=== PATIENT | female | born 1960 | race Caucasian/White ===

== ENCOUNTER 2022-08-06 15:32 | Emergency (ER) | payer OTHER, SELFPAY ==
--- NOTE | ~2022-08-06 | XR_ITS ---
EXAMINATION: XR finger 2nd LT min 2V INDICATION: Left second finger pain TECHNIQUE: Four views of the left second finger are obtained. COMPARISON: None available FINDINGS: Bone alignment is normal. There is no fracture. There is soft tissue swelling of the second finger. 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 IMPRESSION: 1. Soft tissue swelling without acute osseous abnormality. Reviewed, dictated and finalized at location A.
[2022-08-06 16:07] VITALS: BP 122/67; PULSE 67; RESP 18; TEMP 36.5; O2SAT 99
--- NOTE | 2022-08-06 16:24 | WC.ED.TRAUMA ---
HPI - Trauma General Chief Complaint: Extremity Injury, Upper Stated Complaint: Finger Lt Hand Source: patient Mode of arrival: ambulatory History of Present Illness HPI narrative: This is a 62-year-old female that presents to urgent care with left pointer finger, injury. According to patient she smashed her fingers to table. She notes that her finger became swollen and discolored. She currently has an ice pack to the affected extremity. Her pulses are palpable, capillary refill within normal limits. She does have pain to the site she is able to bend her finger with discomfort Related Data Home Medications Medication Instructions Recorded Confirmed empagliflozin 25 mg tablet 25 mg PO DAILY 08/06/22 08/06/22 (Jardiance) ezetimibe 10 mg tablet 10 mg PO DAILY 08/06/22 08/06/22 levothyroxine 100 mcg tablet 100 mcg PO DAILY 08/06/22 08/06/22 (Synthroid) lisinopril 5 mg tablet 5 mg PO DAILY 08/06/22 08/06/22 meloxicam 15 mg tablet 15 mg PO DAILY 08/06/22 08/06/22 metformin 1,000 mg tablet 1,000 mg PO BID 08/06/22 08/06/22 simvastatin 20 mg tablet 20 mg PO DAILY 08/06/22 08/06/22 solifenacin 10 mg tablet 10 mg PO DAILY 08/06/22 08/06/22 Allergies Allergy/AdvReac Type Severity Reaction Status Date / Time No Known Allergies Allergy Verified 08/06/22 15:41 Review of Systems Review of Systems: A 14 organ system Review of Systems was performed and pertinent positives included in the HPI, otherwise remaining ROS is negative. Exam Narrative: GENERAL: This is a well-nourished, well-developed patient, in no apparent distress. HEAD: normocephalic, atraumatic. EYES: PERRL. Sclera clear/white. Vision is grossly intact. EARS: External ears normal, auditory canals clear and without drainage, TMs normal without perforation. Hearing grossly intact. NOSE: External nose normal with no obvious nasal discharge, nares without redness, no rhinorrhea. THROAT: Mucous membranes moist, posterior pharynx clear. NECK: Neck supple, non-tender without lymphadenopathy, masses or thyromegaly. CARDIOVASCULAR: Regular rate and rhythm without murmurs, gallops, or rubs. RESPIRATORY: Clear to auscultation. Breath sounds equal bilaterally. No wheezes, rales, or rhonchi. GASTROINTESTINAL: Abdomen soft, non-tender, nondistended. Bowel sounds are active. No hepato-splenomegaly, or palpable masses. No guarding. SKIN: warm, intact with no suspicious lesions or rash, good texture and turgor. NEURO: awake, alert, and oriented to person, place and time. There were no obvious focal neurologic abnormalities. EXTREMITIES: Left hand pointer finger with edema and discoloration. Full range of motion with discomfort and pain, capillary refill within normal limit, pulses present. Course Course Emergency Course: No fracture indications noted patient instructed to ice elevate and keep compression on the extremity. She will take ibuprofen for pain in inflammation Level of Care: Express Care Visit Vital Signs Vital signs: Vital Signs Temperature 97.7 F 08/06/22 16:07 Pulse Rate 67 08/06/22 16:07 Respiratory Rate 18 08/06/22 16:07 Blood Pressure 122/67 08/06/22 16:07 Pulse Oximetry 99 08/06/22 16:07 Oxygen Delivery Room Air 08/06/22 16:07 Temperature 97.7 F 08/06/22 16:07 Pulse Rate 67 08/06/22 16:07 Respiratory Rate 18 08/06/22 16:07 Blood Pressure 122/67 08/06/22 16:07 Pulse Oximetry 99 08/06/22 16:07 Oxygen Delivery Room Air 08/06/22 16:07 MDM - Trauma Differential Diagnosis Differential diagnosis: Likely fracture of pelvis (Fracture versus dislocation versus sprain of the left pointer finger) Discharge Plan Discharge Clinical Impression: Finger sprain Patient Disposition: Home, Self-Care Condition: Stable Instructions: Antibiotic Form, Finger Sprain (ED) Additional Instructions: Ice to the area 15-20 minutes 4-6 times a day for two to three days Minimize activities that aggravate the condition
== END 2022-08-06 16:25 | disposition home or self-care (01) ==
PROVIDERS: Emergency Provider Nurse Practitioner; PCP Physician Assistant
DX: S63.611A Unspecified sprain of left index finger, initial encounter (principal); X58.XXXA Exposure to other specified factors, initial encounter
CPT/HCPCS: 29130; 73140; 99203; G0463

== ENCOUNTER 2023-08-28 16:20 | Emergency (ER) | payer OTHER, SELFPAY ==
--- NOTE | ~2023-08-28 | XR_ITS ---
EXAMINATION: XR knee LT min 4V DATE: 08/28/2023 16:48 INDICATION: Posterolateral left knee pain post injury TECHNIQUE: Anteroposterior, 2 oblique and crosstable lateral views of the left knee were obtained COMPARISON: None. FINDINGS: Alignment is normal. No fracture. Tricompartmental osteoarthritis at the left knee with small to mod erate-sized marginal osteophytes all 3 compartments and with at least moderate joint space narrowing in the medial compartment which could be underestimated on nonweightbearing imaging. Likely small lef t knee joint effusion without layering lipohemarthrosis. Soft tissues are unremarkable. IMPRESSION: 1. At least moderate severity medial compartment predominant tricompartmental osteoarthritis at the l eft knee with small left knee joint effusion. No acute osseous abnormality. Reviewed, dictated and finalized at location A. IMPRESSION: 1. At least moderate severity medial compartment predominant tricompartmental o steoarthritis at the left knee with small left knee joint effusion. No acute os seous abnormality.
--- NOTE | 2023-08-28 16:21 | ED.LOWEXIN ---
HPI - Extremity Injury (Lower) General Chief Complaint: Extremity Injury, Lower Stated Complaint: Lt Knee Pain Due To Fall Time Seen by Provider: 08/28/23 16:42 Source: patient, RN notes reviewed and old records reviewed Mode of arrival: ambulatory Limitations: no limitations History of Present Illness HPI Narrative: 63 year old female presents to the [facility] with left knee pain due to fall last night. States that she tripped over a curb and landed on her knee. History of a right knee replacement. Significant swelling and effusion noted. Decreased range of motion secondary to pain and swelling Full range of motion of the ankle, positive pedal pulse negative Homans sign no calf tender Onset (ago): day(s) (1) Related Data Home Medications Medication Instructions Recorded Confirmed empagliflozin 25 mg tablet 25 mg PO DAILY 08/06/22 08/28/23 (Jardiance) ezetimibe 10 mg tablet 10 mg PO DAILY 08/06/22 08/28/23 levothyroxine 100 mcg tablet 100 mcg PO DAILY 08/06/22 08/28/23 (Synthroid) lisinopril 5 mg tablet 5 mg PO DAILY 08/06/22 08/28/23 metformin 1,000 mg tablet 1,000 mg PO BID 08/06/22 08/28/23 simvastatin 20 mg tablet 20 mg PO DAILY 08/06/22 08/28/23 solifenacin 10 mg tablet 10 mg PO DAILY 08/06/22 08/28/23 Allergies Allergy/AdvReac Type Severity Reaction Status Date / Time No Known Allergies Allergy Verified 08/28/23 16:24 Review of Systems Review of Systems: All systems reviewed & are unremarkable except as noted in HPI and below Constitutional: Constitutional: Reports no additional constitutional complaints Eyes: Eyes: Reports no additional eye complaints ENT: Reports system reviewed and no additional complaints, except as documented Cardiovascular: Cardiovascular: Reports no additional cardiovascular complaints, Denies chest pain and Denies dyspnea Respiratory: Respiratory: Reports no additional respiratory complaints, Denies chest congestion, Denies cough and Denies dyspnea Gastrointestinal: Gastrointestinal: Reports no additional gastrointestinal complaints, Denies abdominal pain, Denies nausea and Denies vomiting Musculoskeletal: Musculoskeletal: Reports as per HPI, Reports arthralgias, Reports joint swelling and Reports stiffness Integumentary/Breasts: Skin/Breast: Reports system reviewed and no additional complaints, except as docu Neurologic: Reports system reviewed and no additional complaints, except as documented Psychiatric: Psychiatric: Reports no additional psychiatric complaints Allergic/Immunologic: Allergic/Immunologic: Reports no additional allergic/immunologic complaints [facility] Past Medical History Medical History (Updated 08/28/23 @ 20:14 by Michelle Hodge APRN) Diabetes Hypertension Surgical History Surgical History (Updated 08/28/23 @ 20:13 by Michelle Hodge APRN) History of right knee joint replacement Comments At the time of my signature, I reviewed and agree with the nursing past medical, surgical, social, and family history. There is no relevant family history pertinent to the patient complaint. Exam Const: General: cooperative, healthy appearing, comfortable, no acute distress, well developed, alert and well nourished Nutritional Appearance: well nourished Orientation/consciousness: patient oriented x3 Limitations: no limitations HENMT: Head: normal to inspection Ears: hearing grossly normal bilaterally and external ears normal Face/Nose/Sinus: Normal external nose present, Normal nares present, Normal nasal mucous membranes and turbinates present, normal facial exam and face symmetric Face and sinus: normal facial exam and face symmetric Eyes: General: appearance normal, both eyes and all related structures Alignment and Position: alignment normal Periorbital: periorbital findings normal Pupils: Equal, round and reactive pupils present EOM: EOMs intact bilaterally Neck: Neck: normal visual inspection, full ROM, no lymphadenopathy and no meningeal
[2023-08-28 16:30] VITALS: BP 130/58; PULSE 69; RESP 18; TEMP 36.4; O2SAT 98
== END 2023-08-28 17:13 | disposition home or self-care (01) ==
PROVIDERS: Emergency Provider Nurse Practitioner; PCP Physician Assistant
DX: M17.12 Unilateral primary osteoarthritis, left knee (principal); M25.462 Effusion, left knee; E11.9 Type 2 diabetes mellitus without complications; I10 Essential (primary) hypertension; Z96.651 Presence of right artificial knee joint
CPT/HCPCS: 73564; 99213; G0463

== ENCOUNTER 2024-12-19 14:09 | Emergency (ER) | payer MEDICARE, OTHER, SELFPAY ==
[2024-12-19 14:44] VITALS: BP 130/62; PULSE 86; RESP 18; TEMP 36.8; O2SAT 100
--- NOTE | 2024-12-19 14:55 | ED.URI ---
HPI - URI/Sore Throat General Chief Complaint: Upper Respiratory Infection Stated Complaint: HEADACHE / SORE THROAT Time Seen by Provider: 12/19/24 14:57 Source: patient, RN notes reviewed and old records reviewed Mode of arrival: ambulatory Limitations: no limitations History of Present Illness HPI Narrative: 64-year-old female presents to the [facility] with complaints of sore throat, headache, increased mucus, sinus congestion for 3 weeks. States been on and off thought she was getting better. Two days ago started with increasing sore throat with increased mucus. Reports taking an [id number] products Onset (ago): week(s) (3) Treatments prior to arrival: cold medicine Related Data Home Medications ?Medication ?Instructions ?Recorded ?Confirmed ?Last Taken ?Type empagliflozin 25 mg tablet 25 mg PO DAILY 08/06/22 08/28/23 Unknown History (Jardiance) ezetimibe 10 mg tablet 10 mg PO DAILY 08/06/22 08/28/23 Unknown History levothyroxine 100 mcg tablet 100 mcg PO DAILY 08/06/22 08/28/23 Unknown History (Synthroid) lisinopril 5 mg tablet 5 mg PO DAILY 08/06/22 08/28/23 Unknown History simvastatin 20 mg tablet 20 mg PO DAILY 08/06/22 08/28/23 Unknown History solifenacin 10 mg tablet 10 mg PO DAILY 08/06/22 08/28/23 Unknown History dulaglutide 0.75 mg/0.5 mL mg subcut 12/19/24 Unknown History subcutaneous pen injector (Trulicity) Allergies Allergy/AdvReac Type Severity Reaction Status Date / Time Sulfa (Sulfonamide Allergy Intermediate Rash Verified 12/19/24 14:46 Antibiotics) Review of Systems Review of Systems: All systems reviewed & are unremarkable except as noted in HPI and below Constitutional: Constitutional: Reports no additional constitutional complaints ENT: Reports as per HPI Cardiovascular: Cardiovascular: Reports no additional cardiovascular complaints, Denies chest pain and Denies dyspnea Respiratory: Respiratory: Reports no additional respiratory complaints, Denies chest congestion, Denies cough and Denies dyspnea Musculoskeletal: Musculoskeletal: Reports no additional musculoskeletal complaints Integumentary/Breasts: Skin/Breast: Reports system reviewed and no additional complaints, except as docu PMFSH Past Medical History Medical History Diabetes Hypertension Surgical History Surgical History History of right knee joint replacement Comments At the time of my signature, I reviewed and agree with the nursing past medical, surgical, social, and family history. There is no relevant family history pertinent to the patient complaint. Exam Const: General: cooperative, healthy appearing, comfortable, no acute distress, well developed, alert and well nourished Nutritional Appearance: well nourished and obese Orientation/consciousness: patient oriented x3 Limitations: no limitations HENMT: Head: normal to inspection Ears: hearing grossly normal bilaterally, external ears normal, TM's normal bilaterally, EAC's normal, mastoids normal and no periauricular adenopathy Mouth: Yes Normal oral and palatal mucosa present, Yes lip normal, Yes tongue normal and Yes moist mucous membranes Throat: posterior oropharynx normal and no uvular edema Eyes: General: appearance normal, both eyes and all related structures Alignment and Position: alignment normal Neck: Neck: normal visual inspection, full ROM, no lymphadenopathy and no meningeal signs Chest: Chest palpation & inspection: normal inspection of the chest Resp: Effort & Inspection: normal respiratory effort and able to speak in complete sentences Auscultation: clear to auscultation bilaterally, no crackles, no rales, no rhonchi and no wheezes Cardio: Rate: regular rate Skin: General skin exam: normal color and no rashes or lesions noted Neuro: General: patient oriented x3, gait normal, moves all extremities and no meningeal signs Cognition (Neuro): normal cognition Speech: normal speech Gait exam (Neuro): Normal gait present Extrem: General: normal to inspection, full ROM, capillary refill normal and normal gait Psych: Appearance: grossly normal and well kempt Mental Status: mental status grossly normal Speech and movement: Normal speech and movement present and Clear speech present Affect: normal affect Attitude: cooperative Course Course Level of Care: Express Care Visit Vital Signs Vital signs: Vital Signs Temperature 98.2 F 12/19/24 14:44 Pulse Rate 86 12/19/24 14:44 Respiratory Rate 18 12/19/24 14:44 Blood Pressure 130/62 12/19/24 14:44 Pulse Oximetry 100 12/19/24 14:44 Oxygen Delivery Room Air 12/19/24 14:44 Temperature 98.2 F 12/19/24 14:44 Pulse Rate 86 12/19/24 14:44 Respiratory Rate 18 12/19/24 14:44 Blood Pressure 130/62 12/19/24 14:44 Pulse Oximetry 100 12/19/24 14:44 Oxygen Delivery Room Air 12/19/24 14:44 Reviewed MDM - URI/Sore Throat MDM Narrative Medical decision making narrative: Patient sitting comfortably in exam room. Nontoxic, vitals stable. Patient in no acute distress. Patient presents with 3 week history of URI symptoms, increasing yesterday. Patient is strep positive Patient is appropriate for outpatient treatment and follow-up Discharge instructions reviewed with patient, as well as provided in writing per nursing staff. The instructions also include specific and strict return/GO TO THE ER as well as f/u information. All questions have been answered, and the patient deny any further questions with discharge and discharge plan. Some parts of this dictation were generated by voice recognition software and may contain typographical and/or grammatical inaccuracies. Differential Diagnosis Differential diagnosis: Likely upper respiratory infection, otitis media, sinusitis, viral infection, bronchitis, influenza and pharyngitis Lab Data Labs: Lab Results 12/19/24 Range/Units 14:58 POC Grp A Strep Screen Positive (Negative) Reviewed Critical Care Time Critical Care Time Critical Care Time: No Discharge Plan Discharge Clinical Impression: Strep throat Patient Disposition: Home, Self-Care Condition: Stable Instructions: Antibiotic Form, Strep Throat (ED) Additional Instructions: It is very important to treat your symptoms. Drink plenty of water, Gatorade, Pedialyte, ice pops or Jell-O. -Alternate Tylenol and Motrin per package directions for fever or pain. You can alternate every 4 hours -Antihistamine medication such as Zyrtec/Claritin/Wandy during the day can help improve symptoms. -doing daily nasal irrigations can help relieve pressure your sinuses. Things like a Neti pot -Use Flonase twice a day for 5 days then daily to help reduce the inflammation and dry up your sinuses. -You can also use Mucinex. Be sure to drink plenty of water with this medication at least 8 ounces with every dose and it is important to drink 8 to 10 glasses of water per day. Water is a natural decongestant -Eat and drink things that are easy to swallow, like tea or soup, or popsicles. -Oral rinses such as: Salt water gargles and/or may use topical anesthetic (eg. Chloraseptic spray) or lozenges to relieve dryness or throat pain). -Frequent hand washing or hand progressive care nurse is one of the best ways to prevent spread of infection. -Using a vaporizer or humidifier at night will also help thin secretions and help with coughing up phlegm. -Follow up with primary care provider in 7-10 days if condition is not improving - For new or worsening symptoms go directly to the nearest ER Patient Language: Turkish Prescriptions: New amoxicillin 875 mg tablet 875 mg PO Q12H Qty: 20 0RF No Action levothyroxine [Synthroid] 100 mcg tablet 100 mcg PO DAILY simvastatin 20 mg tablet 20 mg PO DAILY lisinopril 5 mg tablet 5 mg PO DAILY ezetimibe 10 mg tablet 10 mg PO DAILY solifenacin 10 mg tablet 10 mg PO DAILY Jardiance 25 mg tablet 25 mg PO DAILY Trulicity 0.75 mg/0.5 mL pen injector SUBCUT Follow-up/Referrals: Coty,MONKIA Contreras [Primary Care Provider] - Stand Alone Forms: Work/School Release IP Time of Disposition: 15:08
[2024-12-19 15:00] LABS: EDSTREPNEGPOS1 Positive (Negative)
--- OUTSIDE RECORDS SUMMARY | 2024-12-19 16:27 | XMS_ITS | Clinical Summary ---
Author Organization [address] Address [address] [place] [id number] Care Team Providers Care Dev Technical Mgr Name Role Phone Beto Potts MD Unavailable [phone] Beto Potts MD Unavailable Leatha Ansari Primary Care Provider Beto Potts MD Unavailable [phone] Samir Garcia Unavailable [phone] Allergies Active Allergy Reactions Criticality Noted Date Comments Sulfa (Sulfonamide Antibiotics) Other (See comments),Hives Medium 11/23/2017 Medications blood-glucose meter kit 2 (two) times a week 01/26/20 18 Active OMEGA-3 FATTY ACIDS-EPA ORAL 1,200 mg early breastfeeding care specialist before breakfast 06/02/20 11 Active CHOLECALCIFEROL, VITAMIN D3, ORAL 5,000 Units every morning 06/02/20 11 Active biotin 1 mg capsule early breastfeeding care specialist before breakfast 08/03/20 19 Active blood glucose diagnostic (FreeStyle Lite Strips) strip Testing bid, due to hyperglycemia 100 each 3 01/18/20 20 Active fluorouraciL (EFUDEX) 5 % cream 12/09/19 23 Active fluticasone propionate (FLONASE) 50 mcg/actuation nasal sprayIndications: Postnasal drip SHAKE LIQUID AND USE 2 SPRAYS IN EACH NOSTRIL DAILY 48 g 02/06/20 23 Active ammonium lactate (AMLACTIN) 12 % cream APPLY TO THE AFFECTED AREA ON FEET TWICE DAILY 11/16/19 24 Active metFORMIN (GLUCOPHAGE) 1,000 mg tabletIndications :Type 2 diabetes mellitus with stage 1 chronic kidney disease, without long-term current use of insulin ([facility]) ([facility]) Take 1 tablet (1,000 mg total) by mouth 2 (two) times a day 180 tablet 3 11/27/19 24 Active solifenacin (VESIcare) 10 mg tabletIndications :Overactive bladder TAKE 1 TABLET DAILY 90 tablet 3 01/18/20 24 Active levothyroxine (SYNTHROID) 100 mcg tabletIndications :Other specified hypothyroidism Take 1 tablet (100 mcg total) by mouth daily 90 tablet 3 03/11/20 24 025 Active ezetimibe (ZETIA) 10 mg tabletIndications :Mixed hyperlipidemia Take 1 tablet (10 mg total) by mouth daily after lunch 90 tablet 3 05/06/20 24 025 Active simvastatin (ZOCOR) 20 mg tabletIndications :Mixed hyperlipidemia Take 1 tablet (20 mg total) by mouth daily 90 tablet 3 05/06/20 24 025 Active dulaglutide (TRULICITY) 0.75 mg/0.5 mL pen injector Inject 0.5 mL (0.75 mg total) under the skin every 7 days 6 mL 3 05/23/20 24 025 Active empagliflozin (Jardiance) 25 mg tabletIndications :Type 2 diabetes mellitus with stage 1 chronic kidney disease, without long-term current use of insulin ([facility]) ([facility]) Take 1 tablet (25 mg total) by mouth daily 90 tablet 3 05/23/20 24 025 Active lisinopriL (PRINIVIL,ZESTRIL ) 5 mg tabletIndications :Benign essential hypertension Take 1 tablet (5 mg total) by mouth daily 90 tablet 11/24/19 25 026 Active lisinopriL (PRINIVIL,ZESTRIL ) 5 mg tabletIndications :Benign essential hypertension Take 1 tablet (5 mg total) by mouth daily 90 tablet 3 11/27/19 24 025 Discontin ued(Reord er) Active Problems Problem Noted Date Diagnosed Date Low bone mass 02/05/2024 Overview (02/05/2024): 2023 scan: Class 1 obesity due to exces s calories with serious comorbidity and body mass index (BMI) of 32.0 to 32.9 in adult 03/23/2020 Assessment & Plan (11/27/2023 3:26 PM CREDIT RISK MODELER): Educated patient on healthy diet/exercise plan. Exercise 150min-300min per week of moderate intensity. Diet: good, healthy protein (eggs, nuts, peanut butter, chicken, fish, turkey, less pork/beef), lots of vegetables, less carbohydrates and less sugar. Assessment & Plan (11/10/2022 12:05 PM CREDIT RISK MODELER): Uncontrolled. Goal of BMI is less than 30. Educated patient on healthy diet/exercise plan. Exercise 150min-300min per week of moderate intensity. Diet: good, healthy protein (eggs, nuts, peanut butter, chicken, fish, turkey, less pork/beef), lots of vegetables, less carbohydrates and less sugar. Patient has lost 3 lb Assessment & Plan (11/22/2021 7:51 AM CREDIT RISK MODELER): Uncontrolled. Goal of BMI is less than 30 Educated patient on healthy diet/exercise plan. Exercise 150min-300min per week of moderate intensity. Diet: good, healthy protein (eggs, nuts, peanut butter, chicken, fish, turkey, less pork/beef), lots of vegetables, less carbohydrates and less sugar. Assessment & Plan (08/05/2021 2:00 PM CDT): Uncontrolled. Goal of BMI is less than 30 Educated patient on healthy diet/exercise plan. Exercise 150min-300min per week of moderate intensity. Diet: good, healthy protein (eggs, nuts, peanut butter, chicken, fish, turkey, less pork/beef), lots of vegetables, less carbohydrates and less sugar. Assessment & Plan (01/28/2021 9:57 AM CDT): Educated patient on healthy diet/exercise plan. Exercise 150min-300min per week of moderate intensity. Diet: good, healthy protein (eggs, nuts, peanut butter, chicken, fish, turkey, less pork/beef), lots of vegetables, less carbohydrates and less sugar. Assessment & Plan (03/23/2020 9:47 AM CDT): Educated patient on healthy diet/exercise plan. Exercise 150min-300min per week of moderate intensity. Diet: good, healthy protein (eggs, nuts, peanut butter, chicken, fish, turkey, less pork/beef), lots of vegetables, less carbohydrates and less sugar. Presence of right artificial knee joint 09/12/20 19 Assessment & Plan (03/23/2020 9:49 AM CDT): Followed by Ortho Assessment & Plan (01/16/2020 8:49 AM CDT): Patient will follow back up with ortho Assessment & Plan (09/12/2019 10:10 AM CREDIT RISK MODELER): Currently the nausea and constipation far worse. She has tried cruise, applesauce and any type of food to have her bowels move. She has tried stool softeners as well as other medications except for MiraLax. She stopped taking the narcotic pain medication however she knows that she will need to have something when she starts formal physical therapy this week. She unfortunately developed a urinary tract infection that is currently being treated. Begin MiraLax. We will try Nucynta for pain medication as she has failed hydrocodone and Ultram. Follow-up in 4 weeks for repeat evaluation. Health maintenance examination 03/30/2019 Overview (11/16/2024): PMH: 11/27/23 Last pap: 10/28/21 Last mammogram:04/2024 Last dexa: ordered Last colonoscopy/cologuard: 11/2021 repeat 2024 Last Hep C:08/2017 Last hep b series: completed in past Last tdap:09/09/2017 Last Prevnar/pneumovax: due pt declined 02/2018, pt declined 02/2020, Last Shingrix:get pharmacy Last eye exam:11/14/24 Assessment & Plan (11/27/2023 1:57 PM CREDIT RISK MODELER): PMH: 11/27/23 Last pap: 10/28/21 Last mammogram:04/2023 Last dexa: ordered Last colonoscopy/cologuard: 11/2021 repeat 2024 Last Hep C:08/2017 Last hep b series: completed in past Last tdap:09/09/2017 Last Prevnar/pneumovax: due pt declined 02/2018, pt declined 02/2020, Last Shingrix:get pharmacy Last eye exam:11/23/23 Assessment & Plan (11/10/2022 11:16 AM CREDIT RISK MODELER): PMH: 11/10/2022 Last pap: due, referral to investment underwriter Last mammogram:11/2018, 05/25/2020, 09/2021 Last dexa: Last colonoscopy/cologuard: 05/2016, 11/2021 repeat 2024 Last Hep C:08/2017 Last hep b series: completed in past Last tdap:09/09/2017 Last Prevnar/pneumovax: due pt declined 02/2018, pt declined 02/2020, Last Shingrix:due, info given ,check on base Last eye exam:10/28/2018, 08/16/2020 , 11/11/2022 Assessment & Plan (08/05/2021 1:44 PM CDT): PMH: 08/05/2021 Last pap: due, referral to investment underwriter Last mammogram:11/2018, 05/25/2020 Last dexa: Last colonoscopy/cologuard: 05/2016 repeat 2020 Last Hep C:08/2017 Last hep b series: completed in past Last tdap:09/09/2017 Last Prevnar/pneumovax: due pt declined 02/2018, pt declined 02/2020, Last Shingrix:due, info given ,check on base Last eye exam:10/28/2018, 08/16/2020 Assessment & Plan (03/23/2020 9:48 AM CDT): PMH: 03/23/2020 Last pap: due Last mammogram:11/2018, Last dexa: Last colonoscopy/cologuard: 05/2016 repeat 2020 Last Hep C:08/2017 Last hep b series: completed in past Last tdap:09/09/2017 Last Prevnar/pneumovax: due pt declined 02/2018, pt declined 02/2020 Last Shingrix:due, info given ,check on base Last eye exam:10/28/2018, due Return to clinic for Pap. Patient due for eye exam Assessment & Plan (08/08/2019 10:33 AM CDT): PMH: 11/15/2018 Last pap: due Last mammogram:11/2018 Last dexa: Last colonoscopy/cologuard: 05/2016 repeat 2020 Last Hep C:08/2017 Last hep b series: completed in past Last tdap:09/09/2017 Last Prevnar/pneumovax: due pt declined 02/2018 Last Shingrix:due Last eye exam:10/28/2018 Benign essential hypertension 11/05/2018 Assessment & Plan (11/27/2023 3:25 PM CREDIT RISK MODELER): Stable, continue current meds. Assessment & Plan (11/10/2022 12:05 PM CREDIT RISK MODELER): Stable, continue current meds Assessment & Plan (11/22/2021 7:50 AM CREDIT RISK MODELER): Stable, continue current meds. Follow-up in February Assessment & Plan (08/05/2021 1:59 PM CDT): Stable, continue prescribed meds. Labs due in February Assessment & Plan (01/28/2021 9:57 AM CDT): Stable, continue current prescribed meds Assessment & Plan (03/23/2020 9:47 AM CDT): Stable continue meds Assessment & Plan (01/16/2020 8:48 AM CDT): Stable, continue meds Assessment & Plan (08/08/2019 12:55 PM CDT): Controlled continue meds Assessment & Plan (03/30/2019 11:11 AM CDT): Hypertension is improving with treatment. Continue current treatment regimen. Blood pressure will be reassessed in 4 weeks. Type 2 diabetes mellitus wit h diabetic chronic kidney disease 03/08/2018 Assessment & Plan (11/27/2023 3:24 PM CREDIT RISK MODELER): Stable, order labs. Foot exam completed today. Continue current meds Assessment & Plan (11/10/2022 12:07 PM CREDIT RISK MODELER): Uncontrolled. A1c at 7.3. Talked with patient about options. She wanted to continue working on weight loss, exercise, and dietary changes. Patient would like to repeat labs in February. If A1c is not at goal will talk about adding another medication Patient has eye exam scheduled this week. Foot exam completed today Assessment & Plan (11/22/2021 7:52 AM CREDIT RISK MODELER): Uncontrolled. Goal of A1c is less than 7 Patient's current A1c at 7.4. Talked with patient about treatment options. Patient reports she was on a G LP 1 in the past and it caused her to feel very flu like. She is unsure of the name. Patient wants to try dietary changes and exercise and weight loss. Patient reports she was not doing well over the holidays with her diet. Patient will recheck labs in February. If number is not less than 7 we will need to consider adding medication Assessment & Plan (08/05/2021 2:00 PM CDT): Stable, continue meds. Order A1c Patient due for eye exam this month Foot exam normal Assessment & Plan (01/28/2021 9:58 AM CDT): Stable, continue meds. Labs due in the beginning of February. Eye exam up-to-date. Assessment & Plan (03/23/2020 9:49 AM CDT): Stable, encourage patient to work on dietary changes and exercise to help with weight loss. Recommend patient start baby aspirin 81 mg a day. Patient due for eye exam. Encourage patient to check her feet daily Assessment & Plan (01/16/2020 8:49 AM CDT): Juan Carlos, A1c was okay. Patient will work on diabetic diet and exercise Assessment & Plan (08/08/2019 12:56 PM CDT): A1c 6.9. Continue meds continue diabetic diet Assessment & Plan (06/29/2019 1:29 PM CDT): Certainly increases the risk for postoperative complication. Chronic kidney disease, stage 1 03/08/2018 Assessment & Plan (11/27/2023 3:25 PM CREDIT RISK MODELER): Stable, monitor labs Assessment & Plan (11/10/2022 12:05 PM CREDIT RISK MODELER): Stable, continue current meds Assessment & Plan (11/22/2021 7:51 AM CREDIT RISK MODELER): Stable, continue current treatment plan. 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 12/24/2016 Overactive bladder 09/17/2016 Assessment & Plan (11/27/2023 3:24 PM CREDIT RISK MODELER): Stable, continue VESIcare Assessment & Plan (11/10/2022 12:06 PM CREDIT RISK MODELER): Stable Assessment & Plan (11/22/2021 7:51 AM CREDIT RISK MODELER): Stable, continue meds Assessment & Plan (08/05/2021 2:00 PM CDT): Stable, continue meds Assessment & Plan (03/23/2020 9:48 AM CDT): Stable continue meds Assessment & Plan (08/08/2019 12:56 PM CDT): Stable continue meds Allergic rhinitis due to pollen 09/17/2016 Assessment & Plan (11/27/2023 3:25 PM CREDIT RISK MODELER): Stable, continue meds Assessment & Plan (11/10/2022 12:05 PM CREDIT RISK MODELER): Stable, continue current meds Assessment & Plan (08/05/2021 1:59 PM CDT): Stable, p.r.n. meds Assessment & Plan (03/23/2020 9:47 AM CDT): Stable with p.r.n. meds Assessment & Plan (08/08/2019 12:55 PM CDT): Stable Vitamin D deficiency 02/04/2016 Assessment & Plan (11/27/2023 3:24 PM CREDIT RISK MODELER): Stable, continue vitamin-D Assessment & Plan (11/10/2022 12:07 PM CREDIT RISK MODELER): Stable, continue Assessment & Plan (08/05/2021 2:01 PM CDT): Stable, continue vitamin Assessment & Plan (03/23/2020 9:49 AM CDT): Stable continue vitamin-D Assessment & Plan (01/16/2020 8:49 AM CDT): Stable continue vitamin-D Assessment & Plan (08/08/2019 12:56 PM CDT): Stable continue vitamin-D Restless legs syndrome 02/04/2016 Assessment & Plan (11/27/2023 3:24 PM CREDIT RISK MODELER): Stable Assessment & Plan (11/10/2022 12:06 PM CREDIT RISK MODELER): Stable Assessment & Plan (08/05/2021 2:00 PM CDT): Stable, continue meds Assessment & Plan (03/23/2020 9:49 AM CDT): Stable Assessment & Plan (08/08/2019 12:56 PM CDT): Stable continue meds Other specified hypothyroidism 02/04/2016 Assessment & Plan (11/27/2023 3:24 PM CREDIT RISK MODELER): Stable, continue meds, order labs Assessment & Plan (11/10/2022 12:06 PM CREDIT RISK MODELER): Stable, continue meds Assessment & Plan (08/05/2021 2:00 PM CDT): Stable, due for labs in February Assessment & Plan (01/28/2021 9:58 AM CDT): Stable, continue meds. Patient will get labs completed in the beginning of meds Assessment & Plan (03/23/2020 9:48 AM CDT): Stable continue meds Assessment & Plan (08/08/2019 12:56 PM CDT): Stable continue meds Obstructive sleep apnea 02/04/2016 Assessment & Plan (11/27/2023 3:24 PM CREDIT RISK MODELER): Unchanged Assessment & Plan (11/10/2022 12:06 PM CREDIT RISK MODELER): Unchanged Assessment & Plan (08/05/2021 2:00 PM CDT): Stable no CPAP machine at this time Assessment & Plan (03/23/2020 9:48 AM CDT): Stable Assessment & Plan (08/08/2019 12:56 PM CDT): Stable not on CPAP Mixed hyperlipidemia 01/11/2016 Overview (03/30/2019): Failed lipitor Assessment & Plan (11/27/2023 3:24 PM CREDIT RISK MODELER): Stable, continue Zocor Assessment & Plan (11/10/2022 12:06 PM CREDIT RISK MODELER): Uncontrolled. Patient's numbers are slightly up. We talked about possibly increasing meds patient wanted to try to improve her numbers on her own. Repeat labs in February. If heart risk is not less than 7.5% we will consider increasing simvastatin to 40 mg Assessment & Plan (11/22/2021 7:51 AM CREDIT RISK MODELER): Patient will check labs in February, continue Zocor Assessment & Plan (08/05/2021 2:00 PM CDT): Stable, continue current meds. Check labs in February Assessment & Plan (01/28/2021 9:57 AM CDT): Stable, continue meds Assessment & Plan (03/23/2020 9:48 AM CDT): Continue meds Assessment & Plan (01/16/2020 8:48 AM CDT): Uncontrolled, increase Zocor from 10 mg to 20 mg Assessment & Plan (08/08/2019 12:55 PM CDT): Stable Periodic limb movement Assessment & Plan (11/27/2023 3:25 PM CREDIT RISK MODELER): Stable, no meds at this time Assessment & Plan (11/10/2022 12:06 PM CREDIT RISK MODELER): Stable Assessment & Plan (08/05/2021 2:00 PM CDT): Stable, continue meds Assessment & Plan (03/23/2020 9:49 AM CDT): Stable Assessment & Plan (08/08/2019 12:56 PM CDT): Stable continue meds Fatty liver Overview (03/30/2019): biopsy showed CHANEL Assessment & Plan (11/27/2023 3:25 PM CREDIT RISK MODELER): Continue working on weight loss, monitor liver function Assessment & Plan (11/10/2022 12:05 PM CREDIT RISK MODELER): Working on weight loss, monitoring labs Assessment & Plan (11/22/2021 7:51 AM CREDIT RISK MODELER): Stable, ALT and AST continue to improve. Monitor labs Assessment & Plan (08/05/2021 2:00 PM CDT): Monitor with labs Assessment & Plan (03/23/2020 9:47 AM CDT): Stable Assessment & Plan (08/08/2019 12:55 PM CDT): Controlled, patient working on weight loss. Continue to monitor Resolved Problems Problem Noted Date Diagnosed Date Resolved Date Viral URI with cough 10/08/2022 023 History of total left knee replacement (TKR) 0 01/11/2020 Arthrofibrosis of total knee replacement (CMS/HCC) 10/07/2019 08/05/2021 Overview (05/12/2020): Manipulation under anesthesia November 07, 2019 Repeat manipulation May 01, 2020 Assessment & Plan (01/28/2021 9:57 AM CDT): Patient has surgery planned March 26 Assessment & Plan (07/22/2020 11:58 AM CDT): Patient has undergone 2 manipulations. Discussed the case with Dr. Winn. Patient is looking for a more aggressive get minimally invasive approach to removing the scar tissue. We discussed the risks, benefits and alternatives. I believe Dr. Winn would be able to help her with arthroscopic debridement of her scar tissue. Certainly, this would be less invasive than open removal of the scar tissue. I personally discussed the case with Dr. Winn and will set the patient up for consultation. Assessment & Plan (06/12/2020 8:29 PM CDT): Still feels like she can only get to 95 on her own. Continue progressive range of motion and strengthening. Follow up in 6 weeks Assessment & Plan (05/12/2020 8:24 PM CDT): The sitting got started back onto her Mobic, muscle relaxer and steroid right away. Started physical therapy that afternoon. She does feel like he has improved her range of motion. We will have her brace people mi and re-evaluate the brace. Follow up in 4 weeks. Assessment & Plan (04/08/2020 10:05 PM CDT): Patient states that she did go from 60/65 to 90/95 degrees and with physical therapy can get to 101 with pushing. Would like to try 1 more manipulation under anesthesia to see if she can get the range of motion. Begin Medrol Dosepak and Nucynta as well as daily physical therapy. Assessment & Plan (12/19/2019 3:25 PM CREDIT RISK MODELER): Patient making slow progress. 92 of flexion now. Achy after physical therapy. Wants to continue with therapy. Follow up in 6 weeks for repeat evaluation. Assessment & Plan (11/21/2019 1:10 PM CREDIT RISK MODELER): Begin Medrol Dosepak. Begin meloxicam 15 mg once daily. Continue Flexeril. Continue with aggressive physical therapy,GILDA bracing and CPM. Follow-up in 4 weeks for repeat evaluation. Assessment & Plan (10/07/2019 12:34 PM CREDIT RISK MODELER): We discussed the risks, benefits and alternatives. Patient is not ready to proceed with manipulation under anesthesia. She does have a history of diabetes but is willing to take the Medrol Dosepak, diclofenac, and Flexeril. Nucynta for pain. She is currently working with the flexion and extension braces as well as a TENS unit. Follow up in 4 weeks for repeat evaluation. If no significant improvement may need to consider manipulation. Primary osteoarthritis of right knee 06/29/2019 09/12/2019 Assessment & Plan (08/08/2019 12:56 PM CDT): Right knee surgery planned on 08/24/2019 Assessment & Plan (06/29/2019 1:29 PM CDT): We discussed the risks, benefits and alternatives of treatment options for osteoarthritis of the knee. From least invasive to most invasive: The only thing to slow the progression of osteoarthritis is weight loss. For every pound lost 4 to 6 pounds of stress is relieved from the knee. Formal physical therapy to help with flexion, extension, mobility and strength. Unloading braces to unload the affected side. The possibility of TENs unit to control pain and swelling. Nonsteroidal anti-inflammatories with the potential of cardiac and GI upset. Steroid and Visco supplement injection. And eventual total knee arthroplasty. After going over the risks, benefits and alternatives all questions are answered. Patient will proceed with TENS unit for pain control initially and total knee arthroplasty for long- term pain control. Acute medial meniscus tear of right knee 06/29/2019 01/11/2020 Assessment & Plan (08/08/2019 12:55 PM CDT): Planned knee surgery Assessment & Plan (06/29/2019 1:30 PM CDT): Three options for meniscal treatment. Nothing, see if it improves over time. Treat conservatively as an osteoarthritis of the knee or diagnostic and operative arthroscopy with repair or partial excision. With the extent of the osteoarthritis noted on MRI total knee arthroplasty is indicated. All questions are answered. Acute nonintractable headache 03/30/2019 08/08/2019 Assessment & Plan (03/30/2019 11:07 AM CDT): Likely due to allergies. Will prescribe Astelin nasal spray. She is to use this daily for the next 2 weeks. She is also to keep a headache log. In 2 weeks she will let us know if her symptoms have improved, worsened, not changed. If she does not have any improvement with the Astelin will consider changing her BP medication. Dry cough 03/30/2019 08/08/2019 Assessment & Plan (03/30/2019 11:08 AM CDT): Due to allergies vs Lisinopril. Lisinopril started 6-7 weeks ago. Prescribed allergy medication. If no improvement with this medication in 2 weeks will change to different BP medication. BMI 32.0-32.9,adult 11/15/2018 01/29/20 21 Assessment & Plan (08/08/2019 12:55 PM CDT): Patient will be able to restart exercise post knee surgery Assessment & Plan (06/29/2019 1:31 PM CDT): We spent over 30 minutes discussing a low carbohydrate, moderate protein and high healthy fat diet. This will certainly help her fatty liver as well as her diabetes and possibly beginnings of neuropathy. Encounters Date Type Department Care Team Description 11/22/2024 Telephone [facility] [address] [id number] Leatha Ansari PA Additional Services Or Orders from Last 3 Months Immunizations Immunization Administration Dates Next Due Influenza, Quadrivalent, Spl it, Preservative Free, Intramuscular 08/05/2023,09/05/2022,08/05/2021,08/02 PPD TEST 06/10/2023,03/29/2007 Pfizer SARS-CoV-2 Monovalent Vaccination (12+ Yrs) PURPLE 01/04/2021,12/14/2020 Tdap 09/09/2017,01/28/2007 Surgical History Surgery Date Site/Laterality Comments FOOT SURGERY 10/26/2017 - 11/25/2017 Left COLONOSCOPY 05/2016 repeat 2020 FOOT SURGERY 12/24/2016 - 01/23/2017 Left LIVER BIOPSY TOTAL KNEE ARTHROPLASTY 08/24/2019 Right KNEE JOINT MANIPULATION 11/07/2019 Right KNEE JOINT MANIPULATION 05/01/2020 Right KNEE ARTHROSCOPY 02/23/2021 - 03/25/2021 Right Medical History Medical History Date Comments Allergic rhinitis due to pollen 09/17/2016 Benign essential hypertension 11/05/2018 Chronic kidney disease, stage 1 03/08/2018 Mixed hyperlipidemia 01/11/2016 failed lipi tor Obstructive sleep apnea 02/04/2016 Other specified hypothyroidism 02/04/2016 Overactive bladder 09/17/2016 Restless legs syndrome 02/04/2016 Type 2 diabetes mellitus wit h diabetic chronic kidney disease (HCC) 03/08/2018 Vitamin D deficiency 02/04/2016 Fracture, finger Fatty liver biopsy showed NA SH Periodic limb movement Injury of calf 2012 tear muscle righ t leg Acute medial meniscus tear o f right knee 06/29/2019 Arthrofibrosis of total knee replacement (HCC) 10/07/2019 Manipulation under anesthesi a November 07, 2019 History of total left knee r eplacement (TKR) 01/11/2020 PONV (postoperative nausea a nd vomiting) Viral URI with cough 10/08/2022 Family History Medical History Relation Name Comments Hyperlipidemia Brother 1 Hypothyroidism Brother 1 bypass Brother 1 Diabetes Brother 2 Hyperlipidemia Brother 2 Hypothyroidism Brother 2 bypass Brother 2 Heart disease Father Melanoma Father bypass Father Heart disease Mother Hyperlipidemia Mother Alzheimer's disease Sister 1 Hypothyroidism Sister 1 Diabetes Sister 2 Hypothyroidism Sister 2 Breast cancer Neg Hx Colon cancer Neg Hx Ovarian cancer Neg Hx Pancreatic cancer Neg Hx Prostate cancer Neg Hx Uterine cancer Neg Hx Relation Name Status Comments Brother 1 Alive Brother 2 Alive Father (Age 92) Mother Sister 1 (Age 64) Sister 2 Alive Social History Tobacco Use Types Packs/Day Years Used Date Smoking Tobacco: Never Smokeless Tobacco: Never Tobacco Cessation:Counseling Given: Not Answered Alcohol Use Standard Drinks/Week Comments Yes 0 (1 standard drink = 0.6 oz pur e alcohol) socially AUDIT-C Answer Date Recorded Q1: How often do you have a drink containing alc ohol? Monthly or less 09/02/2023 Q2: How many drinks containi ng alcohol do you have on a typical day when you are drinking? 1 or 2 09/02/2023 Q3: How often do you have si x or more drinks on one occasion? Never 09/02/2023 PHQ-2 Answer Date Recorded PHQ-2 Total Score (If total score is 3 or more points, staff should administer the PHQ-9) 0 11/27/2023 Comments No Sex and Gender Information Value Date Recorded Sex Assigned at Not on file Legal Sex Female 2:18 PM CREDIT RISK MODELER Gender Identity Not on file Sexual Orientation Not on file Obstetrics History Para Term AB IAB SAB Ectopic Multiple Livin g Live Births 2 2 2 2 Date Outcome GA Total Labor Labor//3rd Weight Sex Type Anes PTL Vani A1 A5 Name Clin Term Term Last Filed Vital Signs Vital Sign Reading Time Taken Comments Blood Pressure 120/68 11/27/2023 1:34 PM CREDIT RISK MODELER Pulse 82 11/27/2023 1:34 PM CREDIT RISK MODELER Temperature 36.6 C (97.8 F) 11/27/2023 1:34 PM CREDIT RISK MODELER Respiratory Rate 16 11/27/2023 1:34 PM CREDIT RISK MODELER Oxygen Saturation 98% 11/27/2023 1:34 PM CREDIT RISK MODELER Inhaled Oxygen Concentration - - Weight 80.1 kg (176 lb 9.6 oz) 11/27/2023 1:34 P M CREDIT RISK MODELER Height 157.5 cm (5' 2 ) 11/27/2023 1:34 PM CREDIT RISK MODELER Body Mass Index 32.3 11/27/2023 1:34 PM CREDIT RISK MODELER Plan of Treatment Health Maintenance Due Date Last Done Comments Hepatitis B Screening 1977 Pneumococcal vaccine 65+ (1 of 2 - PCV) 1978 Zoster Vaccine (1 of 2) 2009 Fall Risk Assessment 08/08/2020 08/08/2019 Covid-19 Vaccine (5 - 2023-2 5 season) 2024 08/01/2022, 09/27/2021, 01/04/2021, Additional history exists Influenza Vaccine (#1) 2024 , 09/05/2022, 08/05/2021, Additional history exists Hemoglobin A1C 09/17/2024 03/17/2024, 11/26, 10/15/2022, Additional history exists Depression Screening 11/27/2024 11/27/2023, 11/27/2023, 09/02/2023, Additional history exists Foot Exam 11/27/2024 11/27/2023, 10/26, 08/05/2021, Additional history exists Well Visit 65+ 11/27/2024 11/27/2023, 10/26, 10/28/2021, Additional history exists Albumin Creatinine Ratio, Urine 12/05/2024 12/05/2023, 10/15/2022, 02/28/2022 Colon Cancer Screening-Colonoscopy 12/16/2024 12/16/2021, 05/26/2016, 06/03/2011 Lipid Panel 03/17/2025 03/17/2024, 11/26, 10/15/2022, Additional history exists eGFR 03/17/2025 03/17/2024, 11/26, 10/15/2022, Additional history exists Breast Cancer Screening-Mammogram 05/11/2025 05/11/2024, 05/04/2023, 10/24/2021, Additional history exists Dilated Eye Exam 10/27/2025 10/27/2024, , 11/20/2022, Additional history exists Osteoporosis Screening-Bone Density Scan 02/02/2026 02/03/2024 Cervical Cancer Screening 10/28/2026 10/28/2021 DTaP/Tdap/Td Vaccine (3 - Td or Tdap) 09/09/2027 09/09/2017, 01/28/2007 Hepatitis C Screening Completed 09/09/2017 Colon Cancer Screening-CT Colonography Discontinued 12/16/2021, 05/26/2016, 06/03/2011 Colon Cancer Screening-DNA Stool Discontinued 12/16/2021, 05/26/2016, 06/03/2011 Colon Cancer Screening-FIT Discontinued 12/16, 05/26/2016, 06/03/2011 Colon Cancer Screening-Sigmoidoscopy Discontinued 12/16/2021, 05/26/2016, 06/03/2011 Procedures Procedure Name Priority Date/Time Associated Diagnosis Comments HM DIABETES EYE EXAM Routine 10/27/2024 SCREENING MAMMOGRAM BILATERAL W ANSON Schedule Routine, Read Routine (OP Routine) 05/11/2024 9:37 AM CDT Screening mammogram, encounter for EGFR Routine 03/17/2024 7:24 AM CDT Type 2 diabetes mellitus with stage 1 chronic kidney disease, without long-term current use of insulin (CMS/HCC) (HCC) Mixed hyperlipidemia HEMOGLOBIN A1C Routine 03/17/2024 7:24 AM CDT Blood glucose elevated LIPID PANEL Routine 03/17/2024 7:24 AM CDT Type 2 diabetes mellitus with stage 1 chronic kidney disease, without long-term current use of insulin (CMS/HCC) (HCC) Mixed hyperlipidemia DEXA AXIAL SKELETON BONE DENSITY 1 OR MORE SITES Schedule Routine, Read Routine (OP Routine) 02/03/2024 3:48 PM CDT Screening for osteoporosis Menopause ALBUMIN CREATININE RATIO, URINE Routine 12/05/2023 8:48 AM CREDIT RISK MODELER Health maintenance examination Vitamin D deficiency Type 2 diabetes mellitus with stage 1 chronic kidney disease, without long-term current use of insulin (CMS/HCC) (HCC) Restless legs syndrome Other specified hypothyroidism Mixed hyperlipidemia Benign essential hypertension Chronic kidney disease, stage 1 COLONOSCOPY Routine 12/16/2021 THINPREP PAP WITH HPV Routine 10/28/2021 10:19 AM CREDIT RISK MODELER HEPATITIS C ANTIBODY Routine 09/09/2017 4:15 PM CREDIT RISK MODELER from Last 3 Months or Most Recently Relevant to Health Maintenance Results * DIABETES EYE EXAM (10/27/2024) SCRIBED DIABETIC DILATED EYE EXAM Normal us Historical Provider MD HEALTH MAINTENANCE Final Result * Screening Mammogram Bilateral W Anson (05/11/2024 9:37 AM CDT) Anatomical Region Laterality Modality Breast Bilateral Mammography Impressions 05/11/2024 9:57 AM CDT BI-RADS ATLAS category (overall): 1 - Negative There is no mammographic evidence of malignancy. A 1 year screening mammogram is recommended. The patient has been or will be contacted. We recommend annual screening mammography for women at average risk of breast cancer beginning at age 40, based on guidelines of the [employer] (ACR Practice Parameter for the Performance of Screening and Diagnostic Mammography) and [place]. For women with and elevated risk of breast cancer, please refer to the ACR Practice Parameter for specific screening recommendations. The patient will be entered into a reminder system with a target due date of 1 year for her next screening exam. Narrative 05/11/2024 9:57 AM CDT Screening Mammogram Bilateral W Anson: 05/11/24 The study was acquired using full field digital technology and interpreted from soft copy. 2D digital mammographic views, as well as 3D digital tomosynthesis were performed in the CC and MLO projections. CLINICAL: Screening mammogram, encounter for No relevant medical history has been documented for this patient. History of breast cancer in Neg Hx. COMPARISONS: 05/04/2023 Screening Mammogram Bilateral W Anson 10/24/2021 Screening Mammogram Bilateral W Anson 05/25/2020 Screening Mammogram 2D Bilateral BREAST TISSUE: The breasts have scattered areas of fibroglandular density. FINDINGS: There is no new suspicious finding in either breast on mammogram. us Self Screening Mammogram IMG MAMMO PROCEDURES Fi nal Result * eGFR (03/17/2024 7:24 AM CDT) eGFR >90 >=60 mL/min/1. 73 m2 Comment: Interpretive Data Reference Interval Normal >/= 90 mL/min/1.73m2 Mildly decreased* 60 - 89 mL/min/1.73m2 Mildly to moderately decreased 45 - 59 mL/min/1.73m2 Moderately to severely decreased 30 - 44 mL/min/1.73m2 Severely decreased 15 - 29 mL/min/1.73m2 Kidney Failure < 15 mL/min/1.73m2 *Relative to young adult level Estimated glomerular filtration rate is determined by the 2020 CKD-EPI equation recommended by the National Kidney Foundation (A Unifying Approach to GFR Estimation: Recommendations of the NKF-ASK Task Force on Reassessing the Inclusion of Race in Diagnosing Kidney Disease, JASN 2020). The CKD-EPI equation should not be used for patients with unstable renal function and has not been validated in children and those over 70. Current interpretive data was last reviewed 2021. Testing performed by: [address] [address] Blood 03/17/2024 7:24 AM CDT 03/17/2024 7:57 AM CDT Leatha FRANK LAB BLOOD ORDERABLES Final Res ult Performing Organization Address [facility] de Phone Number [address] [place] [address] * (ABNORMAL) Hemoglobin A1c (03/17/2024 7:24 AM CDT) Hgb A1C 6.8(H) 4.0 - 5.6 % Comment:Testing performed by : [address] [address] Estimated Average Glucose 148 mg/dL UMESH Comment: The ADA recommends reporting an estimated Average Glucose (eAG) with all Hemoglobin A1c results using the equation derived from a study of 507 normal and diabetic adults. Minority populations were underrepresented and children were not included. (Diabetes Care 31:0380-8596, 2008). The eAG is not equivalent to a fasting glucose. Testing performed by: [address] [address] Blood 03/17/2024 7:24 AM CDT 03/17/2024 3:19 PM CDT Leatha FRANK LAB BLOOD ORDERABLES Final Res ult Performing Organization Address [facility] Co de Phone Number [place] [id number] [facility] [place] [address] * (ABNORMAL) Lipid panel (03/17/2024 7:24 AM CDT) Cholesterol 171 30 - 199 mg/dL Comment: Interpretive Data Ages < or = 19 years Acceptable: <170 mg/dL Borderline high: 170-199 mg/dL High: >or= 200 mg/dL Ages > or = 20 years Desirable: <200 mg/dL Borderline high: 200-239 mg/dL High: >or= 240 mg/dL Literature References: 1. Expert Panel on Integrated Guidelines for Cardiovascular Health and Risk Reduction in Children and Adolescents. Pediatrics 2011;128:S213 2. NCEP Expert Panel. Circulation 2004;110:227 Current Interpretive Data was last revised on 2018. Testing performed by: [address] [address] Triglycerides 212(H) <=149 mg/dL UMESH Comment: Interpretive Data Ages < or = 9 years Acceptable: <75 mg/dL Borderline high: 75-99 mg/dL High: >or= 100 mg/dL Ages 10 to 20 years Acceptable: <90 mg/dL Borderline high: 90-129 mg/dL High: >or= 130 mg/dL Ages > or = 20 years Desirable: <150 mg/dL Borderline high: 150-199 mg/dL High: 200-499 mg/dL Very high: >or= 499 mg/dL Literature References: 1. Expert Panel on Integrated Guidelines for Cardiovascular Health and Risk Reduction in Children and Adolescents. Pediatrics 2011;128:S213 2. NCEP Expert Panel. Circulation 2004;110:227 Current Interpretive Data was last revised on 2018. Testing performed by: [address] [address] HDL 47 >=40 mg/dL UMESH Comment: Interpretive Data Ages < or = 19 years Acceptable: >45 mg/dL Borderline low: 40-45 mg/dL Low: <40 mg/dL Ages > or = 20 years Desirable: >or= 60 mg/dL Low: <40 mg/dL Literature References: 1. Expert Panel on Integrated Guidelines for Cardiovascular Health and Risk Reduction in Children and Adolescents. Pediatrics 2011;128:S213 2. NCEP Expert Panel. Circulation 2004;110:227 Current Interpretive Data was last revised on 2018. Testing performed by: [address] [address] LDL, calculated 82 <=129 mg/dL UMESH Comment: Interpretive Data Ages < or = 19 years Acceptable: <110 mg/dL Borderline high: 110-129 mg/dL High: >or= 130 mg/dL Ages > or = 20 years Optimal: <100 mg/dL Near optimal: 100-129 mg/dL Borderline high: 130-159 mg/dL High: >160 mg/dL Literature References: 1. Expert Panel on Integrated Guidelines for Cardiovascular Health and Risk Reduction in Children and Adolescents. Pediatrics 2011;128:S213 2. NCEP Expert Panel. Circulation 2004;110:227 Current Interpretive Data was last revised on 2018. Testing performed by: [address] [address] Non-HDL Cholesterol 124 mg/dL UMESH Comment: Interpretive Data Ages < or = 19 years Acceptable: <120 mg/dL Borderline high: 120-144 mg/dL High: >145 mg/dL Ages > or = 20 years When triglycerides are >200 mg/dL, Non-HDL cholesterol is a secondary target of therapy with treatment goals that are 30 mg/dL greater than the LDL cholesterol target. Literature References: 1. Expert Panel on Integrated Guidelines for Cardiovascular Health and Risk Reduction in Children and Adolescents. Pediatrics 2011;128:S213 2. NCEP Expert Panel. Circulation 2004;110:227 Current Interpretive Data was last revised on 2018. Testing performed by: [address] [address] Chol/HDL ratio 4 UMESH Comment:Testing performed by : [address] [address] Blood 03/17/2024 7:24 AM CDT 03/17/2024 7:57 AM CDT us Leatha FRANK LAB BLOOD ORDERABLES Final Res ult UMESH [address] [facility] [place] [address] * Dexa Axial Skeleton Bone Density 1 or 2 Site (02/03/2024 3:48 PM CDT) Anatomical Region Laterality Modality Body N/A Mammography 02/03/2024 9:50 PM CDT Narrative 02/03/2024 9:53 PM CDT EXAM DESCRIPTION: DEXA AXIAL SKELETON BONE DENSITY 1 OR MORE SITES REASON FOR STUDY: 64 y/o year old F with given history of: screening 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 REFERENCE: Bone mineral density: T-Score: Normal (T-score above or = -1.0) Low bone mass (T-score between -1.0 and -2.5) replaces the previously used term osteopenia Osteoporosis (T-score = or below -2.5) Z-Score: Within the expected range for age (Z-score above -2.0) Below the expected range for age (Z-score is -2.0 or below) Please see below follow up recommendations. Medical evaluation for secondary causes of low bone mineral density may be appropriate. FRAX is a World Health Organization validated fracture risk assessment tool that calculates a person's 10 year probability of a major osteoporosis related fracture and hip fracture. According to the National Osteoporosis Foundation guidelines, postmenopausal women and men age 50 or older with low bone mass and a 10 year probability of a major osteoporosis related fracture = or greater than 20% or a 10 year probability of a hip fracture = or greater than 3% should be considered for pharmacological treatment for the prevention of osteoporosis. For further information, including treatment recommendations, please refer to the 2019 ISCD Official Positions (http://www.iscd.org) and the NOF's Clinician's Guide to Prevention and Treatment of Osteoporosis (http://www.nof.org/professionals/clinical-guidelines) THIS IS AN ELECTRONICALLY VERIFIED FINAL REPORT 02/03/2024 9:53 PM - Electronically signed by Gary Russo M.D. 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 REFERENCE: Bone mineral density: T-Score: Normal (T-score above or = -1.0) Low bone mass (T-score between -1.0 and -2.5) replaces thepreviously used term osteopenia Osteoporosis (T-score = or below -2.5) Z-Score: Within the expected range for age (Z-score above -2.0) Below the expected range for age (Z-score is -2.0 or below) Please see below follow up recommendations. Medical evaluation forsecondary causes of low bone mineral density may be appropriate. FRAX is a World Health Organization validated fracture risk assessmenttool that calculates a person's 10 year probability of a major osteoporosisrelated fracture and hip fracture. According to the National OsteoporosisFoundation guidelines, postmenopausal women and men age 50 or older with low bonemass and a 10 year probability of a major osteoporosis related fracture = or greater than 20% or a 10 year probability of a hip fracture = or greaterthan 3% should be considered for pharmacological treatment for the preventionof osteoporosis. For further information, including treatment recommendations, please referto the 2019 ISCD Official Positions (http://www.iscd.org) and the NOF's Clinician's Guide to Prevention and Treatment of Osteoporosis (http://www.nof.org/professionals/clinical-guidelines) THIS IS AN ELECTRONICALLY VERIFIED FINAL REPORT 02/03/2024 9:53 PM - Electronically signed by Gary Russo M.D. MF: MARIAN Report ID: [id number] Reading Location: [place] [address] us Leatha FRANK IMG DXA PROCEDURES Final Resul t * Albumin Creatinine Ratio, Urine (12/05/2023 8:48 AM CREDIT RISK MODELER) Albumin Ur <12.0 mg/L UMESH Comment: Interpretive Data No reference range established. Current interpretive data was last revised 2019. Testing performed by: [address] [address] Creatinine Ur 95.1 mg/dL UMESH Comment: Interpretive Data No reference range established. Current interpretive data was last revised 2019. Testing performed by: [address] [address] Albumin Creatinine Ratio, Ur <13 1 - 29 mg/g UMESH Comment:Testing performed by : [address] [address] Urine 12/05/2023 8:48 AM CREDIT RISK MODELER 12/05/2023 12:43 PM CREDIT RISK MODELER us Leatha FRANK LAB URINE ORDERABLES Final Res ult UMESH [address] [facility] Department [place] [address] * Colonoscopy (12/16/2021) Anatomical Region Laterality Modality Other us Historical Provider MD ENDOSCOPY PROCEDURES Digna l Result * ThinPrep Pap with HPV (10/28/2021 10:19 AM CREDIT RISK MODELER) Pap test 10/28/2021 10:1 9 AM CREDIT RISK MODELER 10/29/2021 10:19 AM CREDIT RISK MODELER Narrative 10/31/2021 11:55 AM CREDIT RISK MODELER [facility] Department of Pathology [address] [place], [place] [id number] Final Report with Addendum Note to Patients: This report may contain a detailed description of human tissue sent by a health care provider to the laboratory for pathologic evaluation. The content of this report is essential for diagnosis and may provide important critical findings. This information may be unfamiliar to patients to review without a medical professional present. It is advised that the patient review this report in the presence of a health care provider who can answer questions and explain the details. Patient Name: SHATNE BROWNLEE Address: [address] [place] [address] Gender: F : 1960 (Age: 61) Service: Laboratory Location: N : [id number] [facility] #: [id number] Patient Type: [facility] SPECIMEN Taken: 10/28/2021 Received: 10/29/2021 Accessioned:: 10/30/2021 Reported: 10/31/2021 Physician(s): Joanie Sevilla M.D. [facility] Diagnosis: Source of Specimen: Imaged Thinprep Pap Test plus HPV - Prosthetics Lab Technician Cytologic Material Specimen Adequacy: - Satisfactory for evaluation; endocervical/transformation zone component present General Category: - Negative for intraepithelial lesion or malignancy TACOS Reich(ASCP) Report Electronically Reviewed and Signed Out By VINAYAK ReichASCP) 10/31/2021 11:55:34 Addenda: HPV Test Interpretation NEGATIVE for types 16, 18, 31, 33, 35, 39, 45, 51, 52, 56, 58, 59, 66 and 68. Test performed utilizing Gen-Probe Aptima assay. TACOS Franco(ASCP) Report Electronically Reviewed and Signed Out By TACOS Franco(ASCP) 10/30/2021 14:00:42 Specimen(s) Received: A: Imaged Thinprep Pap Test plus HPV - Prosthetics Lab Technician Cytologic Material Clinical History: Menstrual History: Post-menopausal The Pap test is a screening test used to aid in the detection of cervical cancer and its precursors. It should not be the sole means by which malignant and premalignant lesions are diagnosed. Both false negative and false positive results may occur. It also has poor sensitivity for the detection of endometrial lesions and should not be used to evaluate suspected endometrial abnormalities. For these reasons it is most important to obtain Pap tests at regular intervals. The performance characteristics of some immunohistochemical stains, fluorescence in-situ hybridization tests and immunophenotyping by flow cytometry cited in this report (if any) were determined by the Surgical Pathology Department at [facility] as part of an ongoing senior quality assurance analyst program and in compliance with federally mandated regulations drawn from the Clinical Laboratory Improvement Act of 1988 (CLIA '88). Some of these tests rely on the use of analyte specific reagents and are subject to specific labeling requirements by the US Food and Drug Administration. Such diagnostic tests may only be performed in a facility that is certified by the Department of Health and Human Services as a high complexity laboratory under CLIA '88. The FDA has determined that such clearance or approval is not necessary. This test is used for clinical purposes. It should not be regarded as investigational or for research. Nevertheless, federal rules concerning the medical use of analyte specific reagents require that the following disclaimer be attached to the report: This test was developed and its performance characteristics determined by the Surgical Pathology Department [facility]. It has not been cleared or approved by the U. S. Food and Drug Administration. Joanie Sevilla MD LAB CYTOLOGY ORDERABLES Final Result * Hepatitis C antibody (09/09/2017 4:15 PM CREDIT RISK MODELER) Hep C Ab NONREACT NONREACTIVE 09/09/2017 6:52 PM CREDIT RISK MODELER [facility] HISTORICAL RESULTS Comment: [facility] CRISTI (chemiluminescent immunoassay) technology. NONREACTIVE: Antibodies to Hepatitis C not detected. This does not exclude early acute Hepatitis C infection, possibility of exposure to Hepatitis C, antibodies below detection limit, or to lack of antibody reactivity to the antigen used in this assay. EQUIVOCAL: Antibodies to Hepatitis C may or may not be present. Sample to be confirmed by real-time PCR method. REACTIVE: Antibodies to Hepatitis C detected. 09/09/2017 4:15 PM CREDIT RISK MODELER 09/09/2017 4:26 PM CREDIT RISK MODELER Leatha FRANK LAB MICROBIOLOGY - GENERAL ORD ERABLES Final Result [facility] HISTORICAL RESULTS from Last 3 Months or Most Recently Relevant to Health Maintenance Insurance MEDICARE [facility] [employer] Care Teams Dev Technical Mgr Relationship Specialty Start Date End Date Leatha Ansari PA [address] [place] [address] PCP - General Family Medicine 03/16/20 Beto Potts MD [address] [place] [address] Consulting Physician Family Medicine 01/11/20 Beto Potts MD [address] [place] [address] Consulting Physician Family Medicine 02/15/20 Beto Potts MD [address] [place] [address] Consulting Physician Family Medicine 03/16/20 Samir Garcia PA [address] [place] [address] DR RIOS [address] [place] [id number] Physician Blank Driller Orthopedic Surgery 03/22/21
--- OUTSIDE RECORDS SUMMARY | 2024-12-19 16:27 | XMS_ITS | Encounter Summary ---
Author Organization [facility] Address [address] [place] [address] Care Team Providers Care Charge Out Clerk Name Role Phone Beto Potts MD Unavailable + [phone] Beto Potts MD Unavailable + [phone] Leatha Ansari Primary Care Provider [phone] Beto Potts MD Unavailable + [phone] Samir Garcia Unavailable [phone] Reason for Visit * Reason Onset Date Comments Additional Services Or Orders 11/22/2024 Encounter Details Date Type Department Care Team (Late st Contact Info) Description 11/22/2024 Telephone [facility] Family Medicine [address] [phone] Leatha Ansari PA [address] [place] [phone] Additional Services Or Orders Social History Tobacco Use Types Packs/Day Years Used Date Smoking Tobacco: Never Smokeless Tobacco: Never Alcohol Use Standard Drinks/Week Comments Yes 0 [...] on file 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 Does message need to be routed? No ALL SPRAYER * Telephone Encounter - Dorothea Bronson LPN - 11/24/2024 12:33 PM CST Call placed, no answer, lmtc. ALL SPRAYER * Telephone Encounter - Shiloh Bolanos PA - 11/23/2024 10:05 AM DRYWALL SPRAYER Reviewed chart/last labs Orders for all diabetes labs and Vitamin D/B12 ordered for PA Cloin Orders also include urine sample for protein testing Recommend patient to complete after 12/05/24 (1 year from last full panel of labs) ALL SPRAYER ALL SPRAYER * Telephone Encounter - Dorothea Bronson LPN - 11/22/2024 1:19 PM CST Please advise on labs needed, last labs done 02/2024. ALL SPRAYER * Telephone Encounter - Morena Ken - 11/22/2024 11:44 AM CST See message ALL SPRAYER * Telephone Encounter - Jeff Ann - 11/22/2024 9:59 AM CST Additional Services or Orders Type of Service Requested:Labs Reason for Request (e.g. condition/symptom, date of COVID exposure if applicable): Preventative forMedicare AWV on 01/06/25 Details Regarding Additional Services (e.g. type of home health, type of equipment, type of test, etc.): Blood labs Where will services be performed? (if outside of the practice, facility name, address, phone/fax offacility): [facility] Additional Comments: NA Does message need to be routed? Yes-Action Needed ALL SPRAYER documented in this encounter Plan of Treatment Scheduled Orders Name Type Priority Associated Diagnoses Orde r Schedule Albumin Creatinine Ratio, Urine Lab Routine Type 2 diabetes mellitus with stage 1 chronic kidney disease, without long-term current use of insulin (CMS/HCC) ([facility]) Chronic kidney disease, stage 1 Benign essential hypertension Expected: 12/06/2024 (Approximate), Expires: 11/23/2025 Hemoglobin A1c Lab Routine Type 2 diabetes mellitus with stage 1 chronic kidney disease, without long-term current use of insulin (CMS/HCC) ([facility]) Mixed hyperlipidemia Benign essential hypertension Expected: 12/06/2024 (Approximate), Expires: 11/23/2025 CBC with auto differential Lab Routine Type 2 diabetes mellitus with stage 1 chronic kidney disease, without long-term current use of insulin (CMS/HCC) (HCC) Mixed hyperlipidemia Benign essential hypertension Expected: 12/06/2024 (Approximate), Expires: 11/23/2025 Comprehensive metabolic panel Lab Routine Type 2 diabetes mellitus with stage 1 chronic kidney disease, without long-term current use of insulin (CMS/HCC) (HCC) Mixed hyperlipidemia Benign essential hypertension Expected: 12/06/2024 (Approximate), Expires: 11/23/2025 Lipid panel Lab Routine Type 2 diabetes mellitus with stage 1 chronic kidney disease, without long-term current use of insulin (CMS/HCC) ([facility]) Mixed hyperlipidemia Benign essential hypertension Expected: 12/06/2024 (Approximate), Expires: 11/23/2025 Thyroid Function [place] Lab Routine Type 2 diabetes mellitus with stage 1 chronic kidney disease, without long-term current use of insulin ([facility]) (HCC) Mixed hyperlipidemia Benign essential hypertension Expected: 12/06/2024 (Approximate), Expires: 11/23/2025 Vitamin B12 Lab Routine Type 2 diabetes mellitus with stage 1 chronic kidney disease, without long-term current use of insulin ([facility]) (HCC) Expected: 12/06/2024 (Approximate), Expires: 11/23/2025 Vitamin D 25 hydroxy Lab Routine Vitamin D deficiency Expected: 12/06/2024 (Approximate), Expires: 11/23/2025 documented as of this encounter Visit Diagnoses Diagnosis Type 2 diabetes mellitus with stage 1 chronic kidney disease, without long-term current use of insulin ([facility]) (HCC)- Primary Vitamin D deficiency Mixed hyperlipidemia Class 1 obesity due to excess calories with serious comorbidity and body mass index (BMI) of 32.0 to 32.9 in adult Chronic kidney disease, stage 1 Benign essential hypertension Essential hypertension, benign documented in this encounter Care Teams Charge Out Clerk Relationship Specialty Start Date End Date Leatha Ansari PA [address] [place] [address] PCP - General Family Medicine 03/16/20 Beto Potts MD [address] [place] [address] Consulting Physician Family Medicine 01/11/20 Beto Potts MD [address] [place] [address] Consulting Physician Family Medicine 02/15/20 Beto Potts MD [address] [place] [address] Consulting Physician Family Medicine 03/16/20 Samir Garcia PA [address] [place] [address] Physician Ux Specialist Orthopedic Surgery 03/22/21 documented as of this encounter
--- OUTSIDE RECORDS SUMMARY | 2024-12-19 16:27 | XMS_ITS | Referral Summary ---
Author Organization [address] Address [address] [address] Care Team Providers Care Applications Consultant Name Role Phone Beto Potts MD Unavailable +- [phone] Beto Potts MD Unavailable Leatha Ansari Primary Care Provider Beto Potts MD Unavailable + [phone] Samir Garcia Unavailable Encounters Date Type Department Care Team Description 11/22/[address] [facility] Family Medicine [address] [place] [phone] Leatha Ansari PA Additional Services Or Orders from Last 3 Months Allergies Active Allergy Reactions Criticality Noted Date Comments Sulfa (Sulfonamide Antibiotics) Other (See comments),Hives Medium 11/23/2017 Medications blood-glucose meter kit 2 (two) times a week 01/26/20 18 Active OMEGA-3 FATTY ACIDS-EPA ORAL 1,200 mg liquor establishment manager before breakfast 06/02/20 11 Active CHOLECALCIFEROL, VITAMIN D3, ORAL 5,000 Units every morning 06/02/20 11 Active biotin 1 mg capsule liquor establishment manager before breakfast 08/03/20 19 Active blood glucose [...] disease, without long-term current use of insulin ([facility]) ([facility]) Take 1 tablet (1,000 mg total) by [...] disease, without long-term current use of insulin ([facility]) ([facility]) Take 1 tablet (25 mg total) by [...] 03/23/2020 Assessment & Plan (11/27/2023 3:26 PM AIR EXPORT OPERATIONS AGENT): Educated patient on healthy diet/exercise plan. Exercise 150min-300min per week of moderate intensity. Diet: good, healthy protein (eggs, nuts, peanut butter, chicken, fish, turkey, less pork/beef), lots of vegetables, less carbohydrates and less sugar. Assessment & Plan (11/10/2022 12:05 PM AIR EXPORT OPERATIONS AGENT): Uncontrolled. Goal of BMI is less than 30. Educated patient on healthy diet/exercise plan. Exercise 150min-300min per week of moderate intensity. Diet: good, healthy protein (eggs, nuts, peanut butter, chicken, fish, turkey, less pork/beef), lots of vegetables, less carbohydrates and less sugar. Patient has lost 3 lb Assessment & Plan (11/22/2021 7:51 AM AIR EXPORT OPERATIONS AGENT): Uncontrolled. Goal of BMI is less than [...] Presence of right artificial knee joint 09/12/20 Assessment & Plan (03/23/2020 9:49 AM CDT): Followed by Ortho Assessment & Plan (01/16/2020 8:49 AM CDT): Patient will follow back up with ortho Assessment & Plan (09/12/2019 10:10 AM AIR EXPORT OPERATIONS AGENT): Currently the nausea and constipation far worse. [...] exam:11/14/24 Assessment & Plan (11/27/2023 1:57 PM AIR EXPORT OPERATIONS AGENT): PMH: 11/27/23 Last pap: 10/28/21 Last mammogram:04/2023 Last dexa: ordered Last colonoscopy/cologuard: 11/2021 repeat 2024 Last Hep C:08/2017 Last hep b series: completed in past Last tdap:09/09/2017 Last Prevnar/pneumovax: due pt declined 02/2018, pt declined 02/2020, Last Shingrix:get pharmacy Last eye exam:11/23/23 Assessment & Plan (11/10/2022 11:16 AM AIR EXPORT OPERATIONS AGENT): PMH: 11/10/2022 Last pap: due, referral to public finance specialist Last mammogram:11/2018, 05/25/2020, 09/2021 Last dexa: Last colonoscopy/cologuard: 05/2016, 11/2021 repeat 2024 Last Hep C:08/2017 Last hep b series: completed in past Last tdap:09/09/2017 Last Prevnar/pneumovax: due pt declined 02/2018, pt declined 02/2020, Last Shingrix:due, info [place] ,[place] Last eye exam:10/28/2018, 08/16/2020 , 11/11/2022 Assessment & Plan (08/05/2021 1:44 PM CDT): PMH: 08/05/2021 Last pap: due, referral to public finance specialist Last mammogram:11/2018, 05/25/2020 Last dexa: Last colonoscopy/cologuard: [...] 11/05/2018 Assessment & Plan (11/27/2023 3:25 PM AIR EXPORT OPERATIONS AGENT): Stable, continue current meds. Assessment & Plan (11/10/2022 12:05 PM AIR EXPORT OPERATIONS AGENT): Stable, continue current meds Assessment & Plan (11/22/2021 7:50 AM AIR EXPORT OPERATIONS AGENT): Stable, continue current meds. Follow-up in February [...] 03/08/2018 Assessment & Plan (11/27/2023 3:24 PM AIR EXPORT OPERATIONS AGENT): Juan Carlos, order labs. Foot exam completed today. Continue current meds Assessment & Plan (11/10/2022 12:07 PM AIR EXPORT OPERATIONS AGENT): Uncontrolled. A1c at 7.3. Talked with patient about options. She wanted to continue working on weight loss, exercise, and dietary changes. Patient would like to repeat labs in February. If A1c is not at goal will talk about adding another medication Patient has eye exam scheduled this week. Foot exam completed today Assessment & Plan (11/22/2021 7:52 AM AIR EXPORT OPERATIONS AGENT): Uncontrolled. Goal of A1c is less than [...] Assessment & Plan (01/16/2020 8:49 AM CDT): Stable, A1c was okay. Patient will work on diabetic diet and exercise Assessment & Plan (08/08/2019 12:56 PM CDT): A1c 6.9. Continue meds continue diabetic diet Assessment & Plan (06/29/2019 1:29 PM CDT): Certainly increases the risk for postoperative complication. Chronic kidney disease, stage 1 03/08/2018 Assessment & Plan (11/27/2023 3:25 PM AIR EXPORT OPERATIONS AGENT): Stable, monitor labs Assessment & Plan (11/10/2022 12:05 PM AIR EXPORT OPERATIONS AGENT): Stable, continue current meds Assessment & Plan (11/22/2021 7:51 AM AIR EXPORT OPERATIONS AGENT): Stable, continue current treatment plan. Check urine microalbumin in February Assessment & Plan (08/05/2021 1:59 PM CDT): Stable, continue to monitor with labs Assessment & Plan (01/28/2021 9:57 AM CDT): Stable Assessment & Plan (03/23/2020 9:47 AM CDT): Stable Assessment & Plan (01/16/2020 8:48 AM CDT): Stable Assessment & Plan (08/08/2019 12:55 PM CDT): Well controlled assisted current use of oral hypoglycemic drug 12/24/2016 Overactive bladder 09/17/2016 Assessment & Plan (11/27/2023 3:24 PM AIR EXPORT OPERATIONS AGENT): Stable, continue VESIcare Assessment & Plan (11/10/2022 12:06 PM AIR EXPORT OPERATIONS AGENT): Stable Assessment & Plan (11/22/2021 7:51 AM AIR EXPORT OPERATIONS AGENT): Stable, continue meds Assessment & Plan (08/05/2021 2:00 PM CDT): Stable, continue meds Assessment & Plan (03/23/2020 9:48 AM CDT): Stable continue meds Assessment & Plan (08/08/2019 12:56 PM CDT): Stable continue meds Allergic rhinitis due to pollen 09/17/2016 Assessment & Plan (11/27/2023 3:25 PM AIR EXPORT OPERATIONS AGENT): Stable, continue meds Assessment & Plan (11/10/2022 12:05 PM AIR EXPORT OPERATIONS AGENT): Stable, continue current meds Assessment & Plan (08/05/2021 1:59 PM CDT): Stable, p.r.n. meds Assessment & Plan (03/23/2020 9:47 AM CDT): Stable with p.r.n. meds Assessment & Plan (08/08/2019 12:55 PM CDT): Stable Vitamin D deficiency 02/04/2016 Assessment & Plan (11/27/2023 3:24 PM AIR EXPORT OPERATIONS AGENT): Stable, continue vitamin-D Assessment & Plan (11/10/2022 12:07 PM AIR EXPORT OPERATIONS AGENT): Stable, continue Assessment & Plan (08/05/2021 2:01 PM CDT): Stable, continue vitamin Assessment & Plan (03/23/2020 9:49 AM CDT): Stable continue vitamin-D Assessment & Plan (01/16/2020 8:49 AM CDT): Stable continue vitamin-D Assessment & Plan (08/08/2019 12:56 PM CDT): Stable continue vitamin-D Restless legs syndrome 02/04/2016 Assessment & Plan (11/27/2023 3:24 PM AIR EXPORT OPERATIONS AGENT): Stable Assessment & Plan (11/10/2022 12:06 PM AIR EXPORT OPERATIONS AGENT): Stable Assessment & Plan (08/05/2021 2:00 PM CDT): Stable, continue meds Assessment & Plan (03/23/2020 9:49 AM CDT): Stable Assessment & Plan (08/08/2019 12:56 PM CDT): Stable continue meds Other specified hypothyroidism 02/04/2016 Assessment & Plan (11/27/2023 3:24 PM AIR EXPORT OPERATIONS AGENT): Stable, continue meds, order labs Assessment & Plan (11/10/2022 12:06 PM AIR EXPORT OPERATIONS AGENT): Stable, continue meds Assessment & Plan (08/05/2021 [...] 02/04/2016 Assessment & Plan (11/27/2023 3:24 PM AIR EXPORT OPERATIONS AGENT): Unchanged Assessment & Plan (11/10/2022 12:06 PM AIR EXPORT OPERATIONS AGENT): Unchanged Assessment & Plan (08/05/2021 2:00 PM CDT): Stable no CPAP machine at this time Assessment & Plan (03/23/2020 9:48 AM CDT): Stable Assessment & Plan (08/08/2019 12:56 PM CDT): Stable not on CPAP Mixed hyperlipidemia 01/11/2016 Overview (03/30/2019): Failed lipitor Assessment & Plan (11/27/2023 3:24 PM AIR EXPORT OPERATIONS AGENT): Stable, continue Zocor Assessment & Plan (11/10/2022 12:06 PM AIR EXPORT OPERATIONS AGENT): Uncontrolled. Patient's numbers are slightly up. We talked about possibly increasing meds patient wanted to try to improve her numbers on her own. Repeat labs in February. If heart risk is not less than 7.5% we will consider increasing simvastatin to 40 mg Assessment & Plan (11/22/2021 7:51 AM AIR EXPORT OPERATIONS AGENT): Patient will check labs in February, continue [...] movement Assessment & Plan (11/27/2023 3:25 PM AIR EXPORT OPERATIONS AGENT): Stable, no meds at this time Assessment & Plan (11/10/2022 12:06 PM AIR EXPORT OPERATIONS AGENT): Stable Assessment & Plan (08/05/2021 2:00 PM CDT): Stable, continue meds Assessment & Plan (03/23/2020 9:49 AM CDT): Stable Assessment & Plan (08/08/2019 12:56 PM CDT): Stable continue meds Fatty liver Overview (03/30/2019): biopsy showed CHANEL Assessment & Plan (11/27/2023 3:25 PM AIR EXPORT OPERATIONS AGENT): Continue working on weight loss, monitor liver function Assessment & Plan (11/10/2022 12:05 PM AIR EXPORT OPERATIONS AGENT): Working on weight loss, monitoring labs Assessment & Plan (11/22/2021 7:51 AM AIR EXPORT OPERATIONS AGENT): Stable, ALT and AST continue to improve. [...] 0 01/11/2020 Arthrofibrosis of total knee replacement ([facility]) 10/07/2019 08/05/2021 Overview (05/12/2020): Manipulation under anesthesia [...] therapy. Assessment & Plan (12/19/2019 3:25 PM AIR EXPORT OPERATIONS AGENT): Patient making slow progress. 92 of flexion now. Achy after physical therapy. Wants to continue with therapy. Follow up in 6 weeks for repeat evaluation. Assessment & Plan (11/21/2019 1:10 PM AIR EXPORT OPERATIONS AGENT): Begin Medrol Dosepak. Begin meloxicam 15 mg once daily. Continue Flexeril. Continue with aggressive physical therapy,GILDA bracing and CPM. Follow-up in 4 weeks for repeat evaluation. Assessment & Plan (10/07/2019 12:34 PM AIR EXPORT OPERATIONS AGENT): We discussed the risks, benefits and alternatives. [...] her diabetes and possibly beginnings of neuropathy. Immunizations Immunization Administration Dates Next Due Influenza, Quadrivalent, Spl it, Preservative Free, Intramuscular 08/05/2023,09/05/2022,08/05/2021,08/02 PPD TEST 06/10/2023,03/29/2007 Pfizer SARS-CoV-2 Monovalent Vaccination (12+ Yrs) PURPLE 01/04/2021,12/14/2020 Tdap 09/09/2017,01/28/2007 Social History Tobacco Use Types Packs/Day Years [...] on file Legal Sex Female 2:18 PM AIR EXPORT OPERATIONS AGENT Gender Identity Not on file Sexual Orientation Not on file Last Filed Vital Signs Vital Sign Reading Time Taken Comments Blood Pressure 120/68 11/27/2023 1:34 PM AIR EXPORT OPERATIONS AGENT Pulse 82 11/27/2023 1:34 PM AIR EXPORT OPERATIONS AGENT Temperature 36.6 C (97.8 F) 11/27/2023 1:34 PM AIR EXPORT OPERATIONS AGENT Respiratory Rate 16 11/27/2023 1:34 PM AIR EXPORT OPERATIONS AGENT Oxygen Saturation 98% 11/27/2023 1:34 PM AIR EXPORT OPERATIONS AGENT Inhaled Oxygen Concentration - - Weight 80.1 kg (176 lb 9.6 oz) 11/27/2023 1:34 P M AIR EXPORT OPERATIONS AGENT Height 157.5 cm (5' 2 ) 11/27/2023 1:34 PM AIR EXPORT OPERATIONS AGENT Body Mass Index 32.3 11/27/2023 1:34 PM AIR EXPORT OPERATIONS AGENT Plan of Treatment Not on file Procedures Procedure Name Priority Date/Time Associated Diagnosis Comments DIABETES EYE EXAM Routine 10/27/2024 SCREENING MAMMOGRAM [...] disease, without long-term current use of insulin ([facility]/HCC) (HCC) Mixed hyperlipidemia DEXA AXIAL SKELETON BONE DENSITY 1 OR MORE SITES Schedule Routine, Read Routine (OP Routine) 02/03/2024 3:48 PM CDT Screening for osteoporosis Menopause ALBUMIN CREATININE RATIO, URINE Routine 12/05/2023 8:48 AM AIR EXPORT OPERATIONS AGENT Health maintenance examination Vitamin D deficiency Type 2 diabetes mellitus with stage 1 chronic kidney disease, without long-term current use of insulin (CMS/HCC) (HCC) Restless legs syndrome Other specified hypothyroidism Mixed hyperlipidemia Benign essential hypertension Chronic kidney disease, stage 1 COLONOSCOPY Routine 12/16/2021 THINPREP PAP WITH HPV Routine 10/28/2021 10:19 AM AIR EXPORT OPERATIONS AGENT HEPATITIS C ANTIBODY Routine 09/09/2017 4:15 PM AIR EXPORT OPERATIONS AGENT from Last 3 Months or Most Recently Relevant to Health Maintenance Results * DIABETES EYE EXAM (10/27/2024) SCRIBED DIABETIC DILATED EYE EXAM Normal Historical Provider HEALTH MAINTENANCE Final Result * Screening Mammogram [...] age 40, based on guidelines of the [employer] (ACR Practice Parameter for the Performance of Screening and Diagnostic Mammography) and [employer]. For women [...] was last reviewed 2021. Testing performed by: [facility], [address] [place] [address], [place]., [address] Blood 03/17/2024 7:24 AM CDT 03/17/2024 7:57 AM CDT Leatha FRANK LAB BLOOD ORDERABLES Final Res ult Performing Organization Address [facility] Co de Phone Number [facility] [place] [address] * (ABNORMAL) Hemoglobin A1c (03/17/2024 7:24 AM CDT) Hgb A1C 6.8(H) 4.0 - 5.6 % Comment:Testing performed by : [address] [address] Estimated Average Glucose 148 mg/dL [facility] Comment: The ADA recommends reporting an estimated Average Glucose (eAG) with all Hemoglobin A1c results using the equation derived from a study of 507 normal and diabetic adults. Minority populations were underrepresented and children were not included. (Diabetes Care 31:8059-7900, 2008). The eAG is not equivalent to a fasting glucose. Testing performed by: [facility], [address] [place] [address]., [address] Blood 03/17/2024 7:24 AM CDT 03/17/2024 3:19 PM CDT Leatha FRANK LAB BLOOD ORDERABLES Final Res ult Performing Organization Address [facility] de Phone Number [place] [phone] [facility] [place] [address] * (ABNORMAL) Lipid panel (03/17/2024 7:24 AM [...] revised on 2018. Testing performed by: [address] [address] Triglycerides 212(H) <=149 mg/dL [facility] Comment: Interpretive [...] revised on 2018. Testing performed by: [address] [address] HDL 47 >=40 mg/dL [facility] Comment: Interpretive [...] revised on 2018. Testing performed by: [address] [address] LDL, calculated 82 <=129 mg/dL [facility] Comment: [...] revised on 2018. Testing performed by: [address] [address] Non-HDL Cholesterol 124 mg/dL [facility] Comment: Interpretive [...] revised on 2018. Testing performed by: [address] [address] Chol/HDL ratio 4 [facility] Comment:Testing performed by : [address] [address] Blood 03/17/2024 7:24 AM CDT 03/17/2024 7:57 AM CDT us Leatha FRANK LAB BLOOD ORDERABLES Final Res ult [place] [address] [facility] Department [place] [address] * Dexa Axial Skeleton Bone Density 1 or 2 Site (02/03/2024 3:48 PM CDT) Anatomical Region Laterality Modality Body N/A Mammography 02/03/2024 9:50 PM CDT Narrative 02/03/2024 9:53 PM CDT EXAM DESCRIPTION: DEXA AXIAL SKELETON BONE DENSITY 1 OR MORE SITES REASON FOR STUDY: 64 y/o year old F with given history of: screening Postmenopausal Clinical Nursing Instructor/Model: [employer] A (S/N [id number]) CLINICAL INFORMATION: Current height: 61.5 inches Maximum [...] Gary Russo M.D. MF: MARIAN Report ID: [id number] Reading Location: [id number] [facility] Note Gary Russo MD - 02/03/2024 EXAM DESCRIPTION: DEXA AXIAL SKELETON BONE DENSITY 1 OR MORE SITES REASON FOR STUDY: 64 y/o year old F with given history of: screening Postmenopausal Clinical Nursing Instructor/Model: [email or web address] Horizon A (S/N [id number]) CLINICAL INFORMATION: Current height: 61.5 inches Maximum [...] Gary Russo M.D. MF: MARIAN Report ID: [id number] Reading Location: [place] [address] Leatha FRANK IMG DXA PROCEDURES Final Resul t * Albumin Creatinine Ratio, Urine (12/05/2023 8:48 AM AIR EXPORT OPERATIONS AGENT) Albumin Ur <12.0 mg/L [facility] Comment: Interpretive Data No reference range established. Current interpretive data was last revised 2019. Testing performed by: [address] [address] Creatinine Ur 95.1 mg/dL [facility] Comment: Interpretive Data No reference range established. Current interpretive data was last revised 2019. Testing performed by: [address] [address] Albumin Creatinine Ratio, Ur <13 1 - 29 mg/g [facility] Comment:Testing performed by : [address] [address] Urine 12/05/2023 8:48 AM AIR EXPORT OPERATIONS AGENT 12/05/2023 12:43 PM AIR EXPORT OPERATIONS AGENT Leatha FRANK LAB URINE ORDERABLES Final Res ult [facility] [address] [facility] Department [place] [address] * Colonoscopy (12/16/2021) Anatomical Region Laterality Modality Other Historical Provider MD ENDOSCOPY PROCEDURES Digna l Result * ThinPrep Pap with HPV (10/28/2021 10:19 AM AIR EXPORT OPERATIONS AGENT) Pap test 10/28/2021 10:1 9 AM AIR EXPORT OPERATIONS AGENT 10/29/2021 10:19 AM AIR EXPORT OPERATIONS AGENT Narrative 10/31/2021 11:55 AM AIR EXPORT OPERATIONS AGENT [facility] Department of Pathology [address] [place] [address] Final Report with Addendum Note to Patients: [...] questions and explain the details. Patient Name: SHANTE BROWNLEE Address: [address] [place] [address] Gender: F : 1960 (Age: 61) Service: Laboratory Location: [facility] #: [id number] Patient Type: [facility] SPECIMEN Taken: 10/28/2021 Received: 10/29/2021 Accessioned:: 10/30/2021 Reported: 10/31/2021 Physician(s): Joanie Sevilla M.D. [facility] Diagnosis: Source of Specimen: Imaged Thinprep Pap Test plus HPV - Utility Aircrewman Cytologic Material Specimen Adequacy: - Satisfactory for evaluation; endocervical/transformation zone component present General Category: - Negative for intraepithelial lesion or malignancy TACOS Reich(ASCP) Report Electronically Reviewed and Signed Out By TACOS Reich(ASC) 10/31/2021 11:55:34 Addenda: HPV Test Interpretation NEGATIVE for types 16, 18, 31, 33, 35, 39, 45, 51, 52, 56, 58, 59, 66 and 68. Test performed utilizing Gen-Probe Aptima assay. TACOS Franco(ASCP) Report Electronically Reviewed and Signed Out By TACOS Franco(ASCP) 10/30/2021 14:00:42 Specimen(s) Received: A: Imaged Thinprep Pap Test plus HPV - Utility [employer] Cytologic Material Clinical History: Menstrual History: Post-menopausal [...] determined by the Surgical Pathology Department at [facility] as part of an ongoing lead quality technician program and in compliance with federally mandated [...] characteristics determined by the Surgical Pathology Department [facility]. It has not been cleared or approved by the U. S. Food and Drug Administration. Joanie Sevilla MD LAB CYTOLOGY ORDERABLES Final Result * Hepatitis C antibody (09/09/2017 4:15 PM AIR EXPORT OPERATIONS AGENT) Hep C Ab NONREACT NONREACTIVE 09/09/2017 6:52 PM AIR EXPORT OPERATIONS AGENT [facility] HISTORICAL RESULTS Comment: Siemens MiNOWirelessaurXP using CRISTI (chemiluminescent immunoassay) technology. NONREACTIVE: Antibodies [...] to Hepatitis C detected. 09/09/2017 4:15 PM AIR EXPORT OPERATIONS AGENT 09/09/2017 4:26 PM AIR EXPORT OPERATIONS AGENT Leatha FRANK LAB MICROBIOLOGY - GENERAL ORD ERABLES Final Result [facility] HISTORICAL RESULTS from Last 3 Months or Most Recently Relevant to Health Maintenance Insurance [facility]ICARE [facility] Address: [facility] [address] [place] [address] [employer] Care Teams Applications Consultant Relationship Specialty Start Date End Date Leatha Ansari PA [address] [place] [address] PCP - General Family Medicine 03/16/20 Beto Potts MD [address] [place], [place] [address] Consulting Physician Family Medicine 01/11/20 Beto Potts MD [address] [place] [address] Consulting Physician Family Medicine 02/15/20 Beto Potts MD [address] [place] [address] Consulting Physician Family Medicine 03/16/20 Samir Garcia PA [address] [place] [address] Physician Internship Orthopedic Surgery 03/22/21
--- OUTSIDE RECORDS SUMMARY | 2024-12-19 16:28 | XMS_ITS | Encounter Summary ---
Author Organization [facility] Address [facility] [place] [address] Care Team Providers Care Fire Coordinator Name Role Phone Leatha Ansari Primary Care Provider [phone] Encounter Details Date Type Department Care Team (Latest Contact Info) Description 08/31/2018 Abstract [facility] , Santhosh Vale MD Social History Tobacco Use Types Packs/Day Years Used Date Smoking Tobacco: Never Smokeless Tobacco: Never Alcohol Use Standard Drinks/Week Comments No 0 (1 standard drink = 0.6 oz pur e alcohol) Comments No Sex and Gender Information Value Date Recorded Sex Assigned at Not on file Legal Sex Female 6:44 PM CDT Gender Identity Not on file Sexual Orientation Not on file documented as of this encounter Plan of Treatment Not on file documented as of this encounter Visit Diagnoses Not on filedocumented in this encounter Additional Health Concerns Infection Onset Date Last Indicated Resolved Time COVID-19 Rule Out 11/22/2020 11/22/2020 11/23/2020 7:30 PM CAKE TESTER documented as of this encounter Care Teams Fire Coordinator Relationship Specialty Start Date End Date Leatha Ansari PA [address] [place] [address] PCP - General 02/08/16 documented as of this encounter
--- OUTSIDE RECORDS SUMMARY | 2024-12-19 16:28 | XMS_ITS | Encounter Summary ---
Author Organization [facility] Care Team Providers Care Creative Services Producer Name Role Phone Leatha Ansari Primary Care Provider [phone] Beto Potts MD Unavailable [phone] Don Mary DO Primary Care Provider [phone] Beto Potts MD Primary Care Provid er Leatha Ansari Primary Care Provider [phone] Don Mary DO Primary Care Provider [phone] Leatha Ansari Primary Care Provider [phone] Beto Potts MD Unavailable [phone] Don Mary DO Primary Care Provider [phone] Leatha Ansari Primary Care Provider [phone] Beto Potts MD Unavailable + [phone] Don Mary DO Primary Care Provider [phone] Leatha Ansari Primary Care Provider [phone] Beto Potts MD Unavailable + [phone] Don Mary DO Primary Care Provider [phone] Don Mary DO Primary Care Provider [phone] Leatha Ansari Primary Care Provider [phone] Samir Garcia Unavailable [phone] Encounter Details Date Type Department Care Team (Latest Contact Info) Description 04/16/2018 Orders Only [facility] Provider, MD Ayde [address] [place] [id number] Social History Tobacco Use Types Packs/Day Years Used Date Smoking Tobacco: Never Assessed Comments Unknown Sex and Gender Information Value Date Recorded Sex Assigned at Not on file 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 Historical Provider Final Res ult documented in this encounter Visit Diagnoses Not on filedocumented in this encounter Care Teams Creative Services Producer Relationship Specialty Start Date End Date Leatha Ansari PA [address] [place], [place] [id number] PCP - General 12/13/18 09/23/19 Don Mary DO [address] [place] [address] PCP - General 09/24/19 11/01/19 Beto Potts MD [address] [place], [place] [id number] PCP - General Family Medicine 11/02/19 11/06/19 Leatha Ansari PA [address] [facility] [place] [place] [place] [address] PCP - General Family Medicine 11/23/19 12/23/19 Don Mary, [address] [facility] [place] [place] [address] PCP - General 12/24/19 12/25/19 Leatha Ansari PA [address] [facility] [place] [place] [place] [address] PCP - General 12/26/19 01/15/20 Don Mary, [address] [facility] [place] [place] [address] PCP - General 02/10/20 02/14/20 Leatha Ansari PA [address] [facility] [place] [place] [place] [address] PCP - General Family Medicine 02/15/20 02/21/20 Don Mary DO [address] [facility] [place] [place] [address] PCP - General 02/23/20 03/15/20 Leatha Ansari PA [address] [facility] [place] [place] [place] [address] PCP - General Family Medicine 03/16/20 Don Mary DO [address] [facility] [place], [place] [address] PCP - General 01/16/20 02/09/20 MaryDon DO [address] [place] [address] PCP - General 02/22/20 02/22/20 Leatha Ansari PA [address] [place] [address] PCP - General 11/07/19 11/22/19 Beto Potts MD [address] [place] [address] Consulting Physician Family Medicine 03/29/19 11/01/19 Beto Potts MD [address] [place] [address] Consulting Physician Family Medicine 01/11/20 Beto Potts MD [address] [place] [address] Consulting Physician Family Medicine 02/15/20 Beto Potts MD [address] [place] [address] Consulting Physician Family Medicine 03/16/20 Samir Garcia PA [address] [place] [address] [place] [address] Physician Physical Therapy Attendant Orthopedic Surgery 03/22/21 documented as of this encounter
--- OUTSIDE RECORDS SUMMARY | 2024-12-19 16:28 | XMS_ITS | Referral Summary ---
Author Organization [facility] Address [address] [place] [address] Care Team Providers Care Explosives Operator Name Role Phone Unavailable Primary Care Provider Unavailabl e Source Comments [facility],non-owned Affiliates and Associated Physician Practices is amultiple site organization consisting of ambulatory clinics and hospital sitesin [place], [place], [place] and [place]. This disclosure is being madepursuant to the Care Everywhere program and may not contain all information available regarding this patient. Last updated 18.[facility] [employer] Social History Tobacco Use Types Packs/Day Years Used Date Smoking Tobacco: Never Assessed Sex and Gender Information Value Date Recorded Sex Assigned at Not on file Gender Identity Not on file Sexual Orientation Not on file Plan of Treatment Not on file
--- OUTSIDE RECORDS SUMMARY | 2024-12-19 16:28 | XMS_ITS | Continuity of Care Document ---
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 It does not include entries that were removed or entered in error. 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 DoD joint pain, localized in the knee Active Condition Pt to start miles ing Mobic once daily with food for knee pain - pt to follow-up if knee pain starts to worsen. DoD diabetes mellitus Active Condition Pt to continue on current dosage of metformin - will follow-up for diabetes in 6 months and will need re-referral for optho in 5-6 months. DoD cystitis Active Condition DoD cystitis acute Inactive Condition DoD bursitis anserine Active Condition DoD obesity Active Condition DoD diabetes mellitus type 2 Active Condition [facility] Patient Education Diabetes Dietary Counseling Inactive Condition Based on BMI, p t is obese. Lipid assessment: Cholesterol, TG, and LDL are elevated; HDL too low. A1c indicates a weighted mean BG of 157. Review of pt's 24-hour recall indicates it has variety though she did list some high-fat, high-Na+ and junk fo DoD visit for: issue repeat prescription for medication Inactive Condition DoD hypothyroidism Active Condition Will continue current dosages of thyroid medicaitons and will recheck in 1 year. DoD abnormal blood glucose Active Condition Pt to schedule glucose tolerance test for further evaluation. DoD fatty liver Active Condition [facility] Other Physical Therapy Inactive Condition DoD visit for: issue repeat prescription Inactive Condition patient informe d of labs ordered and meds for one month. Patient instructed to call back mid March to make f/u appointment for labs. Patient verbalized understanding. DoD cellulitis Active Condition DoD Nodules - Subcutaneous Active Condition DoD joint stiffness of the knee Active Condition [facility] osteoarthritis Active Condition Will be attending PT [facility] foot pain (soft tissue) Inactive Condition [facility] pain in leg lower Inactive Condition [facility] closed fracture middle or proximal phalanx 4th finger Active Condition [facility] Orthopedic Aftercare For Healing Traumatic Fracture Active Condition [facility] Occupational Therapy Inactive Condition [facility] visit for: exam following treatment of fracture Inactive Condition [facility] Parent Education: Medication Use Active Condition [facility] allergic rhinitis Active Condition itten order for Wandy 180mg [facility] epidermal inclusion cyst Active Condition [facility] Medications Combined list of outpatient medications from Department of Defense and Veterans Affairs facilities.Medications provided include 1) outpatient medications from the last 15 months, and 2) patient-reported medications. Medication Details Route Status Patient Instructions Prescription Expires Prescription Number Last Dispense Date Ordering Provider Order Date Order Qty Source AMMONIUM LACTATE (AMMONIUM LACTATE), 12%, CREAM(GM), TOPICAL, PERRIGO CO., 280 g TUBE Active [id number] 4 2023 140 Pharmac y Data Transac tion Service Facilit y Dulaglutide 1.5 mg/mL, Injection, 0.5mL Autoinjecto r refriger ateCheck with your doctor before becoming .Store in original package. Active 02/02/2025 [id number] 4 [address] [place] [address] Beto SIMPS[facility] Dulaglutide 1.5 mg/mL, Injection, 0.5mL Autoinjecto r refriger ateCheck with your doctor before becoming .Store in original package. 12/06/2024 [id number] 4 [address] [place] [address] Beto Namita [facility] EMPAGLIFLOZ IN 25 MG ORAL TAB Check with your doctor before becoming . Active 02/25/2025 [id number] 4 [address] [place] [address] Beto SIMPSON [facility] ezetimibe 10 mg tablet See Instruct ions, # 90 EA, 3 total refill(s ), Acute Complet ed 11/09/2023 3 2023 90.0 Ambulat ory Pharmac y ezetimibe 10 mg tablet See Instruct ions, # 90 EA, 3 total refill(s ), Hard Stop Ordered 05/06/2025 4 2023 90.0 Ambulat ory Pharmac y Jardiance 25 mg tablet 25 mg, Oral, Daily, # 90 EA, 3 total refill(s ), Hard Stop Oral (given by mouth) Ordered 05/23/2025 4 2023 90.0 Ambulat ory Pharmac y Jardiance 25 mg tablet See dose instruct ions in comments , # 90 EA, 3 total refill(s ), Acute Complet ed 11/09/2023 4 2023 90.0 Ambulat ory Pharmac y Jardiance 25 mg tablet 25 mg, Oral, Daily, # 90 EA, 0 total refill(s ), Hard Stop Oral (given by mouth) Discont inued 05/24/2024 4 2023 90.0 Ambulat ory Pharmac y levothyroxi ne (Synthroid) 100 mcg tablet See Instruct ions, # 90 EA, 3 total refill(s ), Hard Stop Ordered 03/11/2025 5 2024 90.0 Ambulat ory Pharmac y levothyroxi ne (Synthroid) 100 mcg tablet See dose instruct ions in comments , # 90 EA, 3 total refill(s ), Acute Complet ed 03/09/2024 4 2023 90.0 Ambulat ory Pharmac y Levothyroxi ne Sodium ([place]ett) Tablet 100 mcg Oral Take on empty stomach. Take with plenty of water.Be careful if taking OTCs.Miles e or use exactly as directed . Active 03/11/2025 [id number] 4 [address] [place] [address] Beto [facility]PSON ([facility] Lisinopril (Brand Name) Tablet 5 mg Oral Be careful if taking OTCs.Miles e or use exactly as directed .Do not take if . 11/15/2024 [id number] 4 [address] [place] [address] Beto SIMPSON ([facility] lisinopril 5 mg tablet 5 mg, Oral, Daily, # 90 EA, 0 total refill(s ), Hard Stop Oral (given by mouth) Ordered 02/23/2025 5 2024 90.0 Ambulat ory Pharmac y lisinopril 5 mg tablet See Instruct ions, # 90 EA, 2 total refill(s ), Acute Complet ed 11/09/2023 3 2023 90.0 Ambulat ory Pharmac y lisinopril 5 mg tablet See Instruct ions, Oral, Daily, # 90 EA, 3 total refill(s ), Hard Stop Oral (given by mouth) Complet ed 11/15/2024 4 2024 90.0 Ambulat ory Pharmac y metFORMIN 1000 mg tablet See Instruct ions, # 180 EA, 1 total refill(s ), Hard Stop Complet ed 06/25/2024 4 2023 180.0 Ambulat ory Pharmac y simvastatin (U/D) 20 MG ORAL TAB Take with food/mil k.Take or use exactly as directed .Obtain advice for OTCs.Do not take if .Avoid grapefru it and grapefru it juice. 11/09/2023 [id number] 3 2023 90 [employer] Beto SIMPSON ([facility] simvastatin 20 mg tablet 20 mg, TAKE ONE TABLET DAILY, # 90 EA, 3 total refill(s ), Acute Complet ed 11/09/2023 4 2023 90.0 Ambulat ory Pharmac y simvastatin 20 mg tablet See Instruct ions, # 90 EA, 3 total refill(s ), Hard Stop Ordered 05/06/2025 4 2023 90.0 Ambulat ory Pharmac y SOLIFENACIN SUCCINATE (solifenaci n succinate), 10 MG, TABLET, ORAL, AVKARE, 90 ea. BOTTLE Cancele d [id number] : 2023 0 Pharmac y Data Transac tion Service Facilit y SOLIFENACIN SUCCINATE (solifenaci n succinate), 10 MG, TABLET, ORAL, AVKARE, 90 ea. BOTTLE Cancele d [id number] : 2023 0 Pharmac y Data Transac tion Service Facilit y SOLIFENACIN SUCCINATE (solifenaci n succinate), 10 MG, TABLET, ORAL, AVKARE, 90 ea. BOTTLE Active [id number] 4 2023 90 Pharmac y Data Transac tion Service Facilit y SOLIFENACIN SUCCINATE (solifenaci n succinate), 10 MG, TABLET, ORAL, AVKARE, 90 ea. BOTTLE Cancele d [id number] 4 [id number] : 2023 0 Pharmac y Data Transac tion Service Facilit y Trulicity Pen 0.75 mg/0.5 mL [4EA=2mL] See Instruct ions, # 2 mL, 11 total refill(s ), Hard Stop Notes: refriger ate Ordered 05/23/2025 5 2024 2.0 Ambulat ory Pharmac y Trulicity Pen 0.75 mg/0.5 mL [4EA=2mL] 0.75 mg, SubCutan eous, # 4 mL, 1 total refill(s ), Hard Stop Notes: refriger ate SubCut aneous (under the skin) Discont inued 05/24/2024 4 2023 4.0 Ambulat ory Pharmac y Allergies, Adverse Reactions, Alerts Combined list of allergies from Department of Defense and Veterans Affairs facilities. It does not include entries that were removed or entered in error. Substance Category Reaction Severity Reaction type Status Date Reported Comments Source sulfa drugs Propensity to adverse reactions to drug Unknown Active 4 rash per pt [id number] Unknown Organization [facility] Drug allergy (disorder) Unknown active 4 [employer] Beto SIMPSON ([facility] Immunizations Combined list of available immunizations from the Department of Defense and Veterans Affairs facilities. 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 [place] (PFR) Not Given COVID-19, mRNA, LNP-S, PF, 30 mcg/0.3 mL dose DoD tuberculin purified protein derivative 2006 zzLef t Arm [id number] 96 san[employer]i pasteur cox monett ed Patient Tolerance : Negative Ambulat ory Pharmac y tuberculin skin test; purified protein derivative solution, intradermal 1 2006 Unknown, Provider [id number] Sanofi Pasteur ([facility]) cox monett ed tuberculi n skin test; purified protein derivativ e solution, intraderm al DoD Encounters Combined list of: 1) Encounters from Department of Veterans Affairs facilities going backup to the last 18 months, not all VA inpatient encounters are included; 2) Encounters from the Department of Defense facilities going backup to 280 months. Location Location Details Encounter Type Encounter Number Reason For Visit Attending Provider ADM Date DC Date Status Disposition Source [address] [place] [address] Beto [facility] amita Practice Non-GME FHI2) OUTPATIENT [id number] Cycst stomach area - Eval for removal ESTER NAVA 04/15 Released w/o Limitations [address] [place] [address] Beto SIMPSON ([facility]F amily Practic e Non-GME FHI2) [address] [place] [address] Beto SIMPSON [facility]Fam amita Practice Non-GME FHI2) TELE CONSULT [id number] med ? ESTER HASTINGS 06/[address] [place] [address] Beto SIMPSON [facility]F amily Practic e Non-GME FHI2) [address] [place] [address] Beto SIMPSON [facility]oped[facility] cs[place] OUTPATIENT [id number] r 4th int phal chip fx MARIE BELTRAN 08/29 Released w/o Limitations [address] [place] [address] Beto SIMPSON [facility] - Orthope dics) [address] [place] [address] Beto SIMPS[facility]PAT[place] [id number] f/u finger JANAK TORRES 09/23 Released w/o Limitations [address] [place] [address] Beto SIMPS[facility]V A - Orthope dics) [address] [place] [address] Beto SIMPS[facility] OUTPATIENT [id number] f/u courtney black JOSEPH S 01/06 Released w/o Limitations [address] [place] [address] Beto SIMPSON ([facility] A - Orthope dics) [address] [place] [address] Beto SIMPS[facility]Occ upational Therapy) OUTPATIENT [id number] right ring finger avulaio n fx PAT ISAAC 01/07 Released w/o Limitations [facility] [employer] ([facility]O ccupati onal Therapy ) [address] [place] [address] [employer] ([facility]Occ upational Therapy) OUTPATIENT [id number] MEEK Coleman JAKE R 01/13 Released w/o Limitations [facility] Beto ROSEB ([facility]O ccupati onal Therapy ) [address] [place] [address] Beto B ([facility]Occ upational Therapy) OUTPATIENT [id number] f/u fluido MEEK Coleman JAKE R 01/20 Released w/o Limitations [facility] Bet[employer] ROSEB ([facility]O ccupati onal Therapy ) [address] [place] [address] [employer] ([facility] Non-GME FHI2) TELE CONSULT [id number] 0826-mt d willie- DANITZA Lange 02/[address] [place] [address] Beto ROSEB ([facility]F amily Practic e Non-GME FHI2) [address] [place] [address] [employer] ([facility] Practice Non-GME FHI2) OUTPATIENT [id number] knee jose lt IRAESTER 02/27 Released w/o Limitations [address] [place] [address] [employer] ([facility]F amily Practic e Non-GME FHI2) [address] [place] [address] Beto B ([facility] - [facility] OUTPATIENT [id number] joint pain, localiz ed in the knee VINH TOVAR 03/02 Released w/o Limitations [address] [place] [address] [employer] ([facility]V A - Orthope dics) [address] [place] [address] [employer] ([facility])(Phy sical Therapy) OUTPATIENT [id number] foot pain (soft tissue) TAMMY RAYMUNDO 03/05 Released w/o Limitations [address] [place] [address] [employer] ([facility]P hysical Therapy ) [address] [place] [address] [employer] [facility] Non-GME FHI1) OUTPATIENT [id number] painful silver dollar sized cyst near rt side of sternum ABENA ALMEIDA 03/12 Released w/o Limitations [address] [place] [address] [employer] ([facility]F amily Practic e Non-GME FHI1) [address] [place] [address] [employer] ([facility]Fam amita Practice Non-GME FHI1) TELE CONSULT [id number] [facility]. DIEGO Hernández 03/[address] [place] [address] Beto ROSEB ([facility]F amily Practic e Non-GME FHI1) [address] [place] [address] Beto B [facility]Phy sical Therapy) OUTPATIENT [id number] TAMMY RAYMUNDO 04/02 Released w/o Limitations [address] [place] [address] Beto ROSEB ([facility]P hysical Therapy ) [address] [place] [address] [employer] ([facility]Fam amita Practice Non-GME FHI1) TELE CONSULT [id number] SANDI KIRAN 04/[address] [place] [address] Beto ROSEB ([facility]F amily Practic e Non-GME FHI1) [address] [place] [address] Beto B ([facility]Fam amita Practice Non-GME FHI2) OUTPATIENT [id number] f/u labs TRIXIE BO 05/04 Released w/o Limitations [address] [place] [address] Beto RO[facility]F amily Practic e Non-GME FHI2) [address] [place] [address] Beto B ([facility]Fam amita Practice Non-GME FHI2) TELE CONSULT [id number] lab results /f/u DIEGO Holman 05/[address] [place] [address] Beto ROSEB ([facility]F amily Practic e Non-GME FHI2) [address] [place] [address] Beto B [facility] [facility] OUTPATIENT [id number] f/u, VINH Healy 05/14 Released w/o Limitations [address] [place] [address] [employer] [facility]V A - Orthope dics) [address] [place] [address] [employer] [facility]Fam amita Practice Non-GME FHI2) TELE CONSULT [id number] lab results additio nal testing DIEGO SOLIMAN 05/[address] [place] [address] [employer] [facility]F amily Practic e Non-GME FHI2) [address] [place] [address] Beto B [facility] [facility]) OUTPATIENT [id number] f/u MRI, VINH Healy 06/04 Released w/o Limitations [facility] Beto SIMPSON ([facility]V A - Orthope dics) [address] [place] [address] Beto ROSEB [facility] Practice Non-GME FHI2) OUTPATIENT [id number] new diabeti c 40 min appoint ment TRIXIE BO 06/10 Released w/o Limitations [address] [place] [address] Group [facility]o ROSEB ([facility]F amily Practic e Non-GME FHI2) [address] [place] [place] [address] Group Beto ROSEB [facility]) TELE CONSULT [id number] New DM Glucome ter JOSE Ray 06/[address] [place] [address] Group Beto SIMPSON [facility]F amily Practic e Non-GME FHI1) [address] [place] [address] Beto SIMPSON [facility]) OUTPATIENT [id number] DIABETE S MELLITU SHANTE SELLERS 07/15 Released w/o Limitations [address] [place] [address] Group Beto SIMPSON ([facility]N utritio nal Medicin e) [address] [place] [address] Group Beto ROSEB ([facility] Practice Non-GME FHI2) OUTPATIENT [id number] F/U TRIXIE BO 09/02 Released w/o Limitations [address] [place] [place] [address] Group Beto ROSEB ([facility]F amily Practic e Non-GME FHI2) [address] [place] [place] [address] Group Beto ROSEB ([facility]) OUTPATIENT [id number] uti ASHANTI ARNOLD G 10/10 Released w/o Limitations [facility] RO[facility]B ([facility]) [facility] Medical [facility] Beto ROSEB [facility]) OUTPATIENT [id number] UTI symptom s YADIRA ALBRECHT T 10/25 Released w/o Limitations [facility] RO[facility] ([facility]) [address] [place] [address] Beto ROSEB [facility] Practice Non-GME FHI2) OUTPATIENT [id number] f/u DM and HLP TRIXIE BO 12/07 Released w/o Limitations [address] [place] [address] Group Beto ROSEB ([facility]F amily Practic e Non-GME FHI2) [facility])(Opt ometry) OUTPATIENT [id number] diabeti c eye exam CATHERINE CAVAZOS Rene 01/04 Released w/o Limitations [facility])(O ptometr y) [address] [place] [address])(Phy sical Therapy) OUTPATIENT [id number] Pas entered the order ERICKSON VALLEJO 07/13 Released w/o Limitations [facility])(P hysical Therapy ) Procedures Combined list of: 1) Procedures from Department of Veterans Affairs facilities [facility], not all VA non-surgical procedures are included; 2) All procedures from the Department of Defense facilities. Procedure Procedure Type Code Date Perfomer Comments Sourc e No data available for this section Amb[facility] ry Pharmacy THERAPEUTIC PROCEDURE, 1 OR MORE AREAS, EACH 15 MINUTES; THERAPEUTIC EXERCISES TO DEVELOP STRENGTH AND ENDURANCE, RANGE OF MOTION AND FLEXIBILITY 07/13 [facility] DETERMINATION OF REFRACTIVE STATE 01/04 DoD MEDICAL NUTRITION THERAPY; GROUP (2 OR MORE INDIVIDUAL(S)), EACH 30 MINUTES 07/13 DoD INJECTION(S); SINGLE TENDON SHEATH, OR LIGAMENT, APONEUROSIS (EG, PLANTAR FASCIA ) 06/04 DoD ARTHROCENTESIS, ASPIRATION AND/OR INJECTION, SMALL JOINT OR BURSA (EG, FINGERS, TOES); WITHOUT ULTRASOUND GUIDANCE 05/14 [facility] PHYSICAL THERAPY RE-EVALUATION 04/02 [facility] INJECTION, MORPHINE SULFATE, UP TO 10 MG 03/17 [facility] THERAPEUTIC PROCEDURE, 1 OR MORE AREAS, EACH 15 MINUTES; THERAPEUTIC EXERCISES TO DEVELOP STRENGTH AND ENDURANCE, RANGE OF MOTION AND FLEXIBILITY 03/05 DoD APPLICATION OF A MODALITY TO 1 OR MORE AREAS; WHIRLPOOL 01/20 DoD APPLICATION OF A MODALITY TO 1 OR MORE AREAS; WHIRLPOOL 01/13 DoD FINGER ORTHOSIS (FO), SAFETY PIN, MODIFIED, PREFABRICATED, INCLUDES FITTING AND ADJUSTMENT 01/07 DoD CLOSED TREATMENT OF PHALANGEAL SHAFT FRACTURE, PROXIMAL OR MIDDLE PHALANX, FINGER OR THUMB; WITHOUT MANIPULATION, EACH 08/28 DoD MEDICAL NUTRITION THERAPY; GROUP (2 OR MORE INDIVIDUAL(S)), EACH 30 MINUTES 11/02 DoD CRYOTHERAPY (CO2 SLUSH, LIQUID N2) FOR ACNE 07/06 DoD DESTRUCT (EG, LASER SURGERY, ELECTROSURGERY, CRYOSURGERY, CHEMOSURGERY, SURGICAL CURETTEMENT), PREMALIGNANT LESIONS (EG, ACTINIC KERATOSES); 2ND THRU 14 LESIONS, EA (LIST SEP ADDITION CD, 1ST LESION) 05/29 [facility] VISUAL FIELD EXAMINATION, UNI OR BILATERAL, WITH MEDICAL DIAGNOSTIC EVAL; LIMITED EXAM (EG, TANGENT SCREEN, AUTOPLOT, ARC PERIMETER, OR SINGLE STIMULUS LEVEL AUTO TEST, EG OCTOPUS 3 OR 7 EQUIVALENT) 09/08 [facility] INFECTIOUS AGENT DETECT BY DNA/RNA; STREP A, DIRECT PROBE 09/06 [facility] EKG (SCALP) 06/28 [facility] OTHER GENITOURINARY INSTILLATION 06/28 [facility] REPAIR OF OTHER CURRENT OBSTETRIC LACERATION 06/28 [facility] OTHER DIAGNOSTIC PROCEDURES ON FETUS AND AMNION 06/28 [facility] Physical Therapy: ___ Se ion Segments, 15 Minutes Each Physical Therapy: ___ Session Segments, 15 Minutes Each [id number] 07/13 ERICKSON VALLEJO Physical Therapy Service Evaluation Physical Therapy Service Evaluation 22887 07/13 ERICKSON VALLEJO Fundoscopic Exam Extensive Initial Exam Fundoscopic Exam Extensive Initial Exam 63797 01/04 CATHERINE CAVAZOS Visual Morejon Test Intermediate Examination Visual Morejon Test Intermediate Examination 53556 01/04 CATHERINE CAVAZOS Determination Of Refractive State Determination Of Refractive State 66638 01/04 CATHERINE CAVAZOS Ophthalmological New Patient Start Comprehensive Care Ophthalmological New Patient Start Comprehensive Care 79428 01/04 CATHERINE CAVAZOS Injection Of Tendon Sheath Injection Of Tendon Sheath 56090 07/24 CHERI TOVAR Injection, methylprednisolone acetate, 40 mg 07/24 CHERI TOVAR Medical Nutrition Therapy Group (2 or More Individuals) Each 30 Minutes Medical Nutrition Therapy Group (2 or More Individuals) Each 30 Minutes 42111 07/22 SHANTE LUCAS [facility] Corticosteroids Injection Intrabursal Corticosteroids Injection Intrabursal 05/14 CHERI TOVAR Injection, methylprednisolone acetate, 40 mg 05/14 CHERI TOVAR Physical Therapy Service Re-Evaluation Physical Therapy Service Re-Evaluation 32336 04/02 TAMMY RAYMUNDO [facility] Physical Therapy Service Evaluation Physical Therapy Service Evaluation 90151 03/05 TAMMY RAYMUNDO [facility] Physical Therapy: ___ Se ion Segments, 15 Minutes Each Physical Therapy: ___ Session Segments, 15 Minutes Each 37945 03/05 TAMMY RAYMUNDO Muscle energy techniques, instruction in mini squats and quadriceps strengthening -- 20 minutes Viktoriya A isted Exercises For ROM Assisted Exercises [place] ROM 29409 01/20 JAKE ENGLAND Modalities Whirlpool Treatment Modalities Whirlpool Treatment 04967 01/20 JAKE ENGLAND A isted Exercises For ROM Assisted Exercises For ROM 55402 01/13 JAKE ENGLAND Modalities Whirlpool Treatment Modalities Whirlpool Treatment 46272 01/13 JAKE ENGLAND Occupational Therapy Evaluation Occupational Therapy Evaluation 82920 01/07 PAT ISAAC Physical Therapy Education Orthotics Training 01/07 PAT ISAAC FO, safety pin, modified, prefabricated, includes fitting and adjustment 01/07 PAT ISAAC Social History Combined list of available smoking, tobacco, and other social history from Department of Defense and Veterans Affairs facilities. Social History Type Response Date Comment Sourc e This section is an empty social history section. DoD Assessment and Plan Combined list of future care activities from Department of Defense and Veterans Affairs facilities (e.g., assessment and plan notes, appointments, orders, and referrals). Additional future care activities may be listed in the Plan of Care section. Result Assessment and Plan Date Source Assessment and Plan No data available for this section 12/19/2024 Ambulatory Pharmacy Functional Status Combined list of recent functional and cognitive assessments recorded at [employer] [place] Functional [place] Measurement (FIM) Scale: 1 = Total Assistance (Subject = 0% +), 2 = Maximal Assistance (Subject = 25% +), 3 = Moderate Assistance (Subject = 50% +), 4 = Minimal Assistance (Subject = 75% +), 5 = Supervision, 6 = Modified [place] (Device), 7 = Complete [place] (Timely, Safely). Assessment Date/Time Source Assessment Type Assessment Skill Assessment Score Assessment Details No data available for this section
--- OUTSIDE RECORDS SUMMARY | 2024-12-19 16:28 | XMS_ITS | Encounter Summary ---
Author Organization [facility] Address [address] [facility] [address] [place] [address] Care Team Providers Care Special Needs Babysitter Name Role Phone Unavailable Primary Care Provider Unavailabl e Encounter Details Date Type Department Care Team (Late st Contact Info) Description 04/20/2018 Lab Requisition [facility] DermPath Lab [address] [place] [id number] Beto Potts MD [address] [address] Social History Tobacco Use Types Packs/Day Years Used Date Smoking Tobacco: Never Assessed Sex and Gender Information Value Date Recorded Sex Assigned at Not on file Gender Identity Not on file Sexual Orientation Not on file documented as of this encounter Plan of Treatment Not on file documented as of this encounter Procedures Procedure Name Priority Date/Time Associated Diagnosis Comments DERMATOPATHOLOGY Routine 04/16/2018 12:0 0 AM CDT documented in this encounter Results * DERMATOPATHOLOGY (04/16/2018 12:00 AM CDT) Case Report Dermatopathology Report Case: [id number] Authorizing Provider: Beto Potts MD Collected: 04/16/2018 12:00 AM Pathologist: Kinsey Encinas MD Received: 04/20/2018 08:24 AM Specimens: A) - Skin, right forearm B) - Skin, left upper back / scapula area 8 1:26 PM CDT DERMATOPATHOLOGY LABORATORY Final Diagnosis Specimen A. SKIN, right forearm: POROKERATOSIS (Q82.8) NOT PRESENT AT SAMPLED MARGIN Specimen B. SKIN, left upper back / scapula area: DERMATOFIBROMA (D23.9) PRESENT AT MARGIN 8 1:26 PM [facility] DERMATOPATHOLOGY LABORATORY Clinical History A-B: AK vs mal. Check margins. 1:26 PM T DERMATOPATHOLOGY LABORATORY Gross Description Specimen A: Received is one formalin filled container labeled with the patient's name and designated right forearm. The specimen consists of a shave biopsy measuring [id number]. The margin is inked green. Jar 0. Specimen B: Received is one formalin filled container labeled with the patient's name and designated left upper back / scapula area. The specimen consists of a shave biopsy measuring [id number]. The margin is inked green. Jar 0. 1:26 PM T DERMATOPATHOLOGY LABORATORY Microscopic Description Specimen A. SKIN, right forearm: There is a sparse to moderately dense lichenoid lymphohistiocytic infiltrate, a thinned epidermis, and cornoid lamella formation. This lesion is not present at the sampled margin of the specimen. Specimen B. SKIN, left upper back / scapula area: There is epidermal hyperplasia. Within the dermis, there are fibrohistiocytic cells in haphazard array among coarse collagen bundles. This lesion is present at the margin of the specimen. 1:26 PM [facility] DERMATOPATHOLOGY LABORATORY Disclaimer An external and internal positive and negative controls are appropriate for the histochemical, immunohistochemical and immunofluorescence stain(s) in this case (if any), except where stated explicitly. The performance characteristics of the stain(s) cited in this report were developed and its performance characteristic determined by the Dermatopathology Laboratory at [facility]. These tests need not be, and therefore are not, approved by the [place] Food and Drug Administration. The tests are used for clinical purposes. Billing Codes Specimen Charges Stain Charges 57331 73941 1 1 8 1:26 PM CDT DERMATOPATHOLOGY LABORATORY Embedded Images 1:26 PM CDT DERMATOPATHOLOGY LABORATORY Pathology/Cytology TISSUE SPECIMEN FROM SKIN / Unknown 04/16/2018 04/20/2018 8:24 AM CDT Miscellaneous samples (specimen) TISSUE SPECIMEN FROM SKIN / Unknown 04/16/2018 04/20/2018 8:24 AM CDT Beto Potts MD LAB - PATHOLOGY/CYTO LOGY ORDERABLES DERMATOPATHOLOGY LABORATORY [facility] - Department of Dermatology [facility] 5th Floor Lab B [address] [phone] documented in this encounter Visit Diagnoses Not on filedocumented in this encounter
--- OUTSIDE RECORDS SUMMARY | 2024-12-19 16:28 | XMS_ITS | Encounter Summary ---
Author Organization [facility] Facility Care Team Providers Care Sales Effectiveness Manager Name Role Phone Leatha Ansari Primary Care Provider [phone] Beto Potts MD Unavailable +[phone] Don Mary DO Primary Care Provider [phone] Beto Potts MD Primary Care Provid er Leatha Ansari Primary Care Provider [phone] Don Mary DO Primary Care Provider +[phone] Leatha Ansari Primary Care Provider +[phone] Beto Potts MD Unavailable +[phone] Don Mary DO Primary Care Provider [phone] Leatha Ansari Primary Care Provider [phone] Beto Potts MD Unavailable + [phone] Don Mary DO Primary Care Provider +[phone] Leatha Ansari Primary Care Provider +[phone] Beto Potts MD Unavailable + [phone] Don Mary DO Primary Care Provider +[phone] Don Mary DO Primary Care Provider [phone] Leatha Ansari Primary Care Provider Samir Garcia Unavailable [phone] Encounter Details Date Type Department Care Team (Latest Contact Info) Description 11/15/2018 Orders Only [facility] CLINCONV Provider, MD Ayde [address] [place] [address] Social History Tobacco Use Types Packs/Day Years Used Date Smoking Tobacco: Never Assessed Comments Unknown Sex and Gender Information Value Date Recorded Sex Assigned at Not on file Legal Sex Female 2:18 PM TEXTILE DESIGNS SALES REPRESENTATIVE Gender Identity Not on file Sexual Orientation Not on file documented as of this encounter Plan of Treatment Not on file documented as of this encounter Procedures Procedure Name Priority Date/Time Associated Diagnosis Comments PROCEDURE - RESULT 11/15/2018 12 :00 AM TEXTILE DESIGNS SALES REPRESENTATIVE documented in this encounter Results * PROCEDURE - RESULT (11/15/2018 12:00 AM TEXTILE DESIGNS SALES REPRESENTATIVE) Narrative 11/15/2018 12:00 AM TEXTILE DESIGNS SALES REPRESENTATIVE Ordered by an unspecified provider. Historical Provider Final Res ult documented in this encounter Visit Diagnoses Not on filedocumented in this encounter Care Teams Sales Effectiveness Manager Relationship Specialty Start Date End Date Leatha Ansari PA [address] [place], [place] [address] PCP - General 12/13/18 09/23/19 Don Mary DO [address] [place] [address] PCP - General 09/24/19 11/01/19 Beto Potts MD [address] [place], [place] [address] PCP - General Family Medicine 11/02/19 11/06/19 Leatha Ansari PA [address] [place] [address] PCP - General Family Medicine 11/23/19 12/23/19 Don Mary, [address] [place] [address] PCP - General 12/24/19 12/25/19 Leatha Ansari PA [address] [place] [address] PCP - General 12/26/19 01/15/20 Don Mary, [address] [place] [address] PCP - General 02/10/20 02/14/20 Leatha Ansari PA [address] [place] [address] PCP - General Family Medicine 02/15/20 02/21/20 Don Mary, [address] [place] [address] PCP - General 02/23/20 03/15/20 Leatha Ansari PA [address] [facility], [place] [address] PCP - General Family Medicine 03/16/20 Don Mary, [address] [facility], [place] [address] PCP - General 01/16/20 02/09/20 Don Mary DO [address] [place] [address] PCP - General 02/22/20 02/22/20 Leatha Ansari PA [address] [place] [address] PCP - General 11/07/19 11/22/19 Beto Potts MD [address] [place] [address] Consulting Physician Family Medicine 03/29/19 11/01/19 Beto Potts MD [address] [place] [address] Consulting Physician Family Medicine 01/11/20 Beto Potts MD [address] [place] [address] Consulting Physician Family Medicine 02/15/20 Beto Potts MD [address] [place] [address] Consulting Physician Family Medicine 03/16/20 Samir Garcia PA [address] [place] [address] Physician Dietitian Consultant Orthopedic Surgery 03/22/21 documented as of this encounter
--- OUTSIDE RECORDS SUMMARY | 2024-12-19 16:28 | XMS_ITS | Encounter Summary ---
Author Organization [facility] Facility Care Team Providers Care Apparatus Repair Mechanic Name Role Phone Leatha Ansari Primary Care Provider [phone] Beto Potts MD Unavailable +[phone] Don Mary DO Primary Care Provider [phone] Beto Potts MD Primary Care Provid er Leatha Ansari Primary Care Provider [phone] Don Mary DO Primary Care Provider [phone] Leatha Ansari Primary Care Provider [phone] Beto Potts MD Unavailable +[phone] Don Mary DO Primary Care Provider [phone] Leatha Ansari Primary Care Provider [phone] Beto Potts MD Unavailable + [phone] Don Mary DO Primary Care Provider [phone] Leatha Ansari Primary Care Provider +[phone] Beto Potts MD Unavailable + [phone] Don Mary DO Primary Care Provider [phone] Don Mary DO Primary Care Provider [phone] Leatha Ansari Primary Care Provider +[phone] Samir Garcia Unavailable [phone] Encounter Details Date Type Department Care Team (Latest Contact Info) Description 01/11/2016 Orders Only [facility] CLINCONV Provider, MD Ayde [address] [place] [address] Social History Tobacco Use Types Packs/Day Years Used Date Smoking Tobacco: Never Assessed Comments Unknown Sex and Gender Information Value Date Recorded Sex Assigned at Not on file Legal Sex Female 2:18 PM [place]ET[place] TECHNICIAN Gender Identity Not on file Sexual Orientation Not on file documented as of this encounter Plan of Treatment Not on file documented as of this encounter Procedures Procedure Name Priority Date/Time Associated Diagnosis Comments SCAN - LABS 01/21/2016 12:00 AM CDT documented in this encounter Results * SCAN - LABS (01/21/2016 12:00 AM CDT) Narrative 01/21/2016 12:00 AM CDT Ordered by an unspecified provider. Historical Provider Final Res ult documented in this encounter Visit Diagnoses Not on filedocumented in this encounter Care Teams Apparatus Repair Mechanic Relationship Specialty Start Date End Date Leatha Ansari PA [address] [place], [place] [id number] PCP - General 12/13/18 09/23/19 Don Mary DO [address] [place] [address] PCP - General 09/24/19 11/01/19 Beto Potts MD [address] [place], [place] [id number] PCP - General Family Medicine 11/02/19 11/06/19 Leatha Ansari PA [address] [place] [address] PCP - General Family Medicine 11/23/19 12/23/19 Don Mary DO [address] [place] [address] PCP - General 12/24/19 12/25/19 Leatha Ansari PA [address] [place] [address] PCP - General 12/26/19 01/15/20 Don Mary DO [address] [place] [address] PCP - General 02/10/20 02/14/20 Leatha Ansari PA [address] [place] [address] PCP - General Family Medicine 02/15/20 02/21/20 Don Mary DO [address] [place] [address] PCP - General 02/23/20 03/15/20 Leatha Ansari PA [address] [place] [address] PCP - General Family Medicine 03/16/20 Don Mary DO [address] [facility] [address] PCP - General 01/16/20 02/09/20 Don Mary DO [address] [place] [address] PCP - General 02/22/20 02/22/20 Leatha Ansari PA [address] [place] [address] PCP - General 11/07/19 11/22/19 Beto Potts MD [address] [place] [address] Consulting Physician Family Medicine 03/29/19 11/01/19 Beto Potts MD [address] [place] [address] Consulting Physician Family Medicine 01/11/20 Beto Potts MD [address] [place] [address] Consulting Physician Family Medicine 02/15/20 Beto Potts MD [address] [place] [address] Consulting Physician Family Medicine 03/16/20 Samir Garcia PA [address] [facility] [address] Physician Commissioner Of Conciliation Orthopedic Surgery 03/22/21 documented as of this encounter
--- OUTSIDE RECORDS SUMMARY | 2024-12-19 16:28 | XMS_ITS | Encounter Summary ---
Author Organization [facility] Facility Care Team Providers Care Veterinary Hospital Attendant Name Role Phone Leatha Ansari Primary Care Provider [phone] Beto Potts MD Unavailable [phone] Don Mary DO Primary Care Provider [phone] Beto Potts MD Primary Care Provid er Leatha Ansari Primary Care Provider [phone] Don Mary DO Primary Care Provider [phone] Leatha Ansari Primary Care Provider [phone] Beto Potts MD Unavailable +[phone] Don Mary DO Primary Care Provider [phone] Leatha Ansari Primary Care Provider [phone] Beto Potts MD Unavailable + [phone] Don Mary DO Primary Care Provider [phone] Leatha Ansari Primary Care Provider [phone] Beto Potts MD Unavailable + [phone] Don Mary DO Primary Care Provider [phone] Don Mary DO Primary Care Provider [phone] Leatha Ansari Primary Care Provider [phone] Samir Garcia Unavailable Encounter Details Date Type Department Care Team (Latest Contact Info) Description 02/08/2016 Orders Only [facility] CLINCONV Provider, MD Ayde [address] [place] [address] Social History Tobacco Use Types Packs/Day Years Used Date Smoking Tobacco: Never Assessed Comments Unknown Sex and Gender Information Value Date Recorded Sex Assigned at Not on file Legal Sex Female 2:18 PM ED EDUCATIONAL AIDE Gender Identity Not on file Sexual Orientation Not on file documented as of this encounter Plan of Treatment Not on file documented as of this encounter Procedures Procedure Name Priority Date/Time Associated Diagnosis Comments SCAN - LABS 02/08/2016 12:00 AM CDT documented in this encounter Results * SCAN - LABS (02/08/2016 12:00 AM CDT) Narrative 02/08/2016 12:00 AM CDT Ordered by an unspecified provider. Historical Provider Final Res ult documented in this encounter Visit Diagnoses Not on filedocumented in this encounter Care Teams Veterinary Hospital Attendant Relationship Specialty Start Date End Date Leatha Ansari PA [address] [place], [place] [id number] PCP - General 12/13/18 09/23/19 Don Mary DO [address] [place] [address] PCP - General 09/24/19 11/01/19 Beto Potts MD [address] [place], [place] [id number] PCP - General Family Medicine 11/02/19 11/06/19 Leatha Ansari PA [address] [facility] [address] PCP - General Family Medicine 11/23/19 12/23/19 Don Mary DO [address] [place] [address] PCP - General 12/24/19 12/25/19 Leatha Ansari PA [address] [place] [address] PCP - General 12/26/19 01/15/20 Don Mary DO [address] [place] [address] PCP - General 02/10/20 02/14/20 Leatha Ansari PA [address] [place] [address] PCP - General Family Medicine 02/15/20 02/21/20 Don Mary DO [address] [place] [address] PCP - General 02/23/20 03/15/20 Leatha Ansari PA [address] [place] [address] PCP - General Family Medicine 03/16/20 Don Mary DO [address] [facility], [place] [address] PCP - General 01/16/20 02/09/20 Don Mary DO [address] [place] [address] PCP - General 02/22/20 02/22/20 Leatha Ansari PA [address] [place] [address] PCP - General 11/07/19 11/22/19 Beto Potts MD [address] [place] [address] Consulting Physician Family Medicine 03/29/19 11/01/19 Beto Potts MD [address] [place] [address] Consulting Physician Family Medicine 01/11/20 Beto Potts MD [address] [place] [address] Consulting Physician Family Medicine 02/15/20 Beto Potts MD [address] [place] [address] Consulting Physician Family Medicine 03/16/20 Samir Garcia PA [address] [facility] [place] [address] Physician Golf Course Superintendent Orthopedic Surgery 03/22/21 documented as of this encounter
--- OUTSIDE RECORDS SUMMARY | 2024-12-19 16:28 | XMS_ITS | Encounter Summary ---
Author Organization [facility] Address [address] [address] Care Team Providers Care Well Drill Operator Name Role Phone Leatha Ansari Primary Care Provider [phone] Beto Potts MD Unavailable + [phone] Don Mary DO Primary Care Provider [phone] Beto Potts MD Primary Care Provid er Leatha Ansari Primary Care Provider [phone] Don Mary DO Primary Care Provider [phone] Leatha Ansari Primary Care Provider [phone] Beto Potts MD Unavailable + [phone] Don Mary DO Primary Care Provider [phone] Leatha Ansari Primary Care Provider [phone] Beto Potts MD Unavailable + [phone] Don Mary DO Primary Care Provider [phone] Leatha Ansari Primary Care Provider [phone] Beto Potts MD Unavailable + [phone] Don Mary DO Primary Care Provider +[phone] Don Mary DO Primary Care Provider [phone] Leatha Ansari Primary Care Provider [phone] Samir Garcia Unavailable +[phone] Encounter Details Date Type Department Care Team (Late st Contact Info) Description 06/03/2011 Orders Only [facility] Information Management [address] [place] [address] Leatha Ansari PA [address] [place], [place] [id number] Social History Tobacco Use Types Packs/Day Years Used Date Smoking Tobacco: Never Assessed Comments Unknown Sex and Gender Information Value Date Recorded Sex Assigned at Not on file Legal Sex Female 2:18 PM APPLICATION TESTER Gender Identity Not on file Sexual Orientation Not on file documented as of this encounter Plan of Treatment Not on file documented as of this encounter Procedures Procedure Name Priority Date/Time Associated Diagnosis Comments SCAN - PATHOLOGY 06/03/2011 documented in this encounter Results * SCAN - PATHOLOGY (06/03/2011) Leatha FRANK Final Result documented in this encounter Visit Diagnoses Not on filedocumented in this encounter Care Teams Well Drill Operator Relationship Specialty Start Date End Date Leatha Ansari PA [address] [place], [place] [id number] PCP - General 12/13/18 09/23/19 Don Mary DO [address] [place], [place] [address] PCP - General 09/24/19 11/01/19 Beto Potts MD [address] [place], [place] [id number] PCP - General Family Medicine 11/02/19 11/06/19 Leatha Ansari PA [address] [place] [address] PCP - General Family Medicine 11/23/19 12/23/19 Don Mary DO [address] [place] [address] PCP - General 12/24/19 12/25/19 Leatha Ansari PA [address] [facility] [address] PCP - General 12/26/19 01/15/20 Don Mary, [address] [place] [address] PCP - General 02/10/20 02/14/20 Leatha Ansari PA [address] [place] [address] PCP - General Family Medicine 02/15/20 02/21/20 Don Mary, [address] [place] [address] PCP - General 02/23/20 03/15/20 Leatha Ansari PA [address] [facility], [place] [address] PCP - General Family Medicine 03/16/20 Don Mary DO [address] [facility] [address] PCP - General 01/16/20 02/09/20 Don Mary DO [address] [place] [address] PCP - General 02/22/20 02/22/20 Leatha Ansari PA [address] [place] [address] PCP - General 11/07/19 11/22/19 Beto Potts MD [address] [place] [address] Consulting Physician Family Medicine 03/29/19 11/01/19 Beto Potts MD [address] [place] [address] Consulting Physician Family Medicine 01/11/20 Beto Potts MD [address] [place] [address] Consulting Physician Family Medicine 02/15/20 Beto Potts MD [address] [place] [address] Consulting Physician Family Medicine 03/16/20 Samir Garcia PA [address] [place] [address] [place] [address] Physician Electronics Engineering Technologist Orthopedic Surgery 03/22/21 documented as of this encounter
--- OUTSIDE RECORDS SUMMARY | 2024-12-19 16:28 | XMS_ITS | Encounter Summary ---
Author Organization [facility] Facility Care Team Providers Care Roller Mechanic Name Role Phone Leatha Ansari Primary Care Provider [phone] Beto Potts MD Unavailable [phone] Don Mary DO Primary Care Provider [phone] Beto Potts MD Primary Care Provid er Leatha Ansari Primary Care Provider [phone] Don Mary DO Primary Care Provider [phone] Leatha Ansari Primary Care Provider +[phone] Beto Potts MD Unavailable +[phone] Don Mary DO Primary Care Provider +[phone] Leatha Ansari Primary Care Provider [phone] Beto Potts MD Unavailable + [phone] Don Mary DO Primary Care Provider +[phone] Leatha Ansari Primary Care Provider +[phone] Beto Potts MD Unavailable + [phone] Don Mary DO Primary Care Provider [phone] Don Mary DO Primary Care Provider [phone] Leatha Ansari Primary Care Provider [phone] Samir Garcia Unavailable [phone] Encounter Details Date Type Department Care Team (Latest Contact Info) Description 02/11/2016 Orders Only [facility] CLINCONV Provider, MD Ayde [address] [place] [address] Social History Tobacco Use Types Packs/Day Years Used Date Smoking Tobacco: Never Assessed Comments Unknown Sex and Gender Information Value Date Recorded Sex Assigned at Not on file Legal Sex Female 2:18 PM ENVIRONMENTAL HEALTH AIDE Gender Identity Not on file Sexual Orientation Not on file documented as of this encounter Plan of Treatment Not on file documented as of this encounter Procedures Procedure Name Priority Date/Time Associated Diagnosis Comments SCAN - LABS 02/11/2016 12:00 AM CDT documented in this encounter Results * SCAN - LABS (02/11/2016 12:00 AM CDT) Narrative 02/11/2016 12:00 AM CDT Ordered by an unspecified provider. Historical Provider Final Res ult documented in this encounter Visit Diagnoses Not on filedocumented in this encounter Care Teams Roller Mechanic Relationship Specialty Start Date End Date Leatha Ansari PA [address] [place], [place] [id number] PCP - General 12/13/18 09/23/19 Don Mary DO [address] [place] [address] PCP - General 09/24/19 11/01/19 Beto Potts MD [address] [place], [place] [address] PCP - General Family Medicine 11/02/19 11/06/19 Leatha Ansari PA [address] [place] [address] PCP - General Family Medicine 11/23/19 12/23/19 Don Mary DO [address] [place] [address] PCP - General 12/24/19 12/25/19 Leatha Ansari PA [address] [place] [address] PCP - General 12/26/19 01/15/20 Don Mary DO [address] [place] [address] PCP - General 02/10/20 02/14/20 Leatha Ansari PA [address] [place] [address] PCP - General Family Medicine 02/15/20 02/21/20 Don Mary DO [address] [place] [address] PCP - General 02/23/20 03/15/20 Leatha Ansari PA [address] [place] [address] PCP - General Family Medicine 03/16/20 Don Mary DO [address] [facility], [place] [address] PCP - General 01/16/20 02/09/20 Don Mary DO [address] [place] [address] PCP - General 02/22/20 02/22/20 Leatha Ansari PA [address] [place] [address] PCP - General 11/07/19 11/22/19 Beto Potts MD [address] [place] [address] Consulting Physician Family Medicine 03/29/19 11/01/19 Beto Potts MD [address] [place] [address] Consulting Physician Family Medicine 01/11/20 Beto Potts MD [address] [place] [address] Consulting Physician Family Medicine 02/15/20 Beto Potts MD [address] [place] [address] Consulting Physician Family Medicine 03/16/20 Samir Garcia PA [address] [facility] [address] Physician [employer] Unified Communications Engineer Orthopedic Surgery 03/22/21 documented as of this encounter
--- OUTSIDE RECORDS SUMMARY | 2024-12-19 16:28 | XMS_ITS | Encounter Summary ---
Author Organization [facility] Facility Care Team Providers Care Ruby Rails Developer Name Role Phone Leatha Ansari Primary Care Provider [phone] Beto Potts MD Unavailable [phone] Don Mary DO Primary Care Provider [phone] Beto Potts MD Primary Care Provid er Leatha Ansari Primary Care Provider [phone] Don Mary DO Primary Care Provider [phone] Leatha Ansari Primary Care Provider [phone] Beto Potts MD Unavailable [phone] Don Mary DO Primary Care Provider [phone] Leatha Ansari Primary Care Provider [phone] Beto Potts MD Unavailable + [phone] Don Mary DO Primary Care Provider [phone] Leatha Ansari Primary Care Provider [phone] Beto Potts MD Unavailable + [phone] Don Mary DO Primary Care Provider [phone] Don Mary DO Primary Care Provider [phone] Leatha Ansari Primary Care Provider [phone] Samir Garcia Unavailable Encounter Details Date Type Department Care Team (Latest Contact Info) Description 05/26/2016 Orders Only [facility] CLINCONV Provider, MD Ayde [address] [place] [address] Social History Tobacco Use Types Packs/Day Years Used Date Smoking Tobacco: Never Assessed Comments Unknown Sex and Gender Information Value Date Recorded Sex Assigned at Not on file Legal Sex Female 2:18 PM SAW FILER Gender Identity Not on file Sexual Orientation Not on file documented as of this encounter Plan of Treatment Not on file documented as of this encounter Procedures Procedure Name Priority Date/Time Associated Diagnosis Comments COLONOSCOPY - SCAN 05/26/2016 12 :00 AM CDT documented in this encounter Results * COLONOSCOPY - SCAN (05/26/2016 12:00 AM CDT) Narrative 05/26/2016 12:00 AM CDT Ordered by an unspecified provider. Historical Provider Final Res ult documented in this encounter Visit Diagnoses Not on filedocumented in this encounter Care Teams Ruby Rails Developer Relationship Specialty Start Date End Date Leatha Ansari PA [address] [place], [place] [id number] PCP - General 12/13/18 09/23/19 Don Mary DO [address] [place] [address] PCP - General 09/24/19 11/01/19 Beto Potts MD [address] [place], [place] [id number] PCP - General Family Medicine 11/02/19 11/06/19 Leatha Ansari PA [address] [place] [address] PCP - General Family Medicine 11/23/19 12/23/19 Don Mary DO [address] [place] [address] PCP - General 12/24/19 12/25/19 Leatha Ansari PA [address] [place] [address] PCP - General 12/26/19 01/15/20 Don Mary DO [address] [place] [address] PCP - General 02/10/20 02/14/20 Leatha Ansari PA [address] [place] [address] PCP - General Family Medicine 02/15/20 02/21/20 Don Mary DO [address] [place] [address] PCP - General 02/23/20 03/15/20 Leatha Ansari PA [address] [place] [address] PCP - General Family Medicine 03/16/20 Don Mary DO [address] [facility], [place] [address] PCP - General 01/16/20 02/09/20 Don Mary DO [address] [place] [address] PCP - General 02/22/20 02/22/20 Leatha Ansari PA [address] [place] [address] PCP - General 11/07/19 11/22/19 Beto Potts MD [address] [place] [address] Consulting Physician Family Medicine 03/29/19 11/01/19 Beto Potts MD [address] [place] [address] Consulting Physician Family Medicine 01/11/20 Beto Potts MD [address] [place] [address] Consulting Physician Family Medicine 02/15/20 Beto Potts MD [address] [place] [address] Consulting Physician Family Medicine 03/16/20 Samir Garcia PA [address] [place] [address] Physician Window Trimmer Apprentice Orthopedic Surgery 03/22/21 documented as of this encounter
--- OUTSIDE RECORDS SUMMARY | 2024-12-19 16:28 | XMS_ITS | Encounter Summary ---
Author Organization [facility] Facility Care Team Providers Care Team Coordinator Name Role Phone Leatha Ansari Primary Care Provider [phone] eBto Potts MD Unavailable [phone] Don Mary DO Primary Care Provider [phone] Beto Potts MD Primary Care Provid er Leatha Ansari Primary Care Provider [phone] Don Mary DO Primary Care Provider [phone] Leatha Ansari Primary Care Provider [phone] Beto Potts MD Unavailable [phone] Don Mary DO Primary Care Provider [phone] Leatha Ansari Primary Care Provider [phone] Beto Potts MD Unavailable + [phone] Don Mary DO Primary Care Provider [phone] Leatha Ansari Primary Care Provider [phone] Beto Potts MD Unavailable + [phone] Don Mary DO Primary Care Provider [phone] Don Mary DO Primary Care Provider [phone] Leatha Ansari Primary Care Provider Samir Garcia Unavailable Encounter Details Date Type Department Care Team (Latest Contact Info) Description 12/24/2016 Orders Only [facility] CLINCONV Provider, MD Ayde [address] [place] [address] Social History Tobacco Use Types Packs/Day Years Used Date Smoking Tobacco: Never Assessed Comments Unknown Sex and Gender Information Value Date Recorded Sex Assigned at Not on file Legal Sex Female 2:18 PM SIDEHAND Gender Identity Not on file Sexual Orientation Not on file documented as of this encounter Plan of Treatment Not on file documented as of this encounter Procedures Procedure Name Priority Date/Time Associated Diagnosis Comments CARDIOLOGY REPORT 12/24/2016 12: 00 AM SIDEHAND documented in this encounter Results * CARDIOLOGY REPORT (12/24/2016 12:00 AM SIDEHAND) Anatomical Region Laterality Modality Other Narrative 12/24/2016 12:00 AM SIDEHAND Ordered by an unspecified provider. Historical Provider [facility] ROBBIE MADSEN Final Result documented in this encounter Visit Diagnoses Not on filedocumented in this encounter Care Teams Team Coordinator Relationship Specialty Start Date End Date Leatha Ansari PA [address] [place], [place] [id number] PCP - General 12/13/18 09/23/19 Don Mary DO [address] [place] [address] PCP - General 09/24/19 11/01/19 Beto Potts MD [address] [place], [place] [address] PCP - General Family Medicine 11/02/19 11/06/19 Leatha Ansari PA [address] [place] [address] PCP - General Family Medicine 11/23/19 12/23/19 Don Mary DO [address] [facility] [address] PCP - General 12/24/19 12/25/19 Leatha Ansari PA [address] [place] [address] PCP - General 12/26/19 01/15/20 Don Mary, [address] [place] [address] PCP - General 02/10/20 02/14/20 Leatha Ansari PA [address] [place] [address] PCP - General Family Medicine 02/15/20 02/21/20 Don Mary, [address] [place] [address] PCP - General 02/23/20 03/15/20 Leatha Ansari PA [address] [place] [address] PCP - General Family Medicine 03/16/20 Don Mary DO [address] [facility], [place] [address] PCP - General 01/16/20 02/09/20 Don Mary DO [address] [place] [address] PCP - General 02/22/20 02/22/20 Leatha Ansari PA [address] [place] [address] PCP - General 11/07/19 11/22/19 Beto Potts MD [address] [place] [address] Consulting Physician Family Medicine 03/29/19 11/01/19 Beto Potts MD [address] [place] [address] Consulting Physician Family Medicine 01/11/20 Beto Potts MD [address] [place] [address] Consulting Physician Family Medicine 02/15/20 Beto Potts MD [address] [place] [address] Consulting Physician Family Medicine 03/16/20 Samir Garcia PA [address] [place] [address] [place] [address] Physician Shook Splicer Orthopedic Surgery 03/22/21 documented as of this encounter
--- OUTSIDE RECORDS SUMMARY | 2024-12-19 16:28 | XMS_ITS | Clinical Summary ---
Author Organization [facility] Address [facility] [place] [address] Care Team Providers Care Pipe Changer Name Role Phone Leatha Ansari Primary Care Provider [phone] Allergies Active Allergy Reactions Criticality Noted Date Comments Sulfa Antibiotics Hives 11/23/2017 Medications SITagliptin (JANUVIA) 100 MG tablet Take 100 mg by mouth daily. Active GlipiZIDE-MetFOR MIN HCl (METAGLIP OR) Active Active Problems No known active problems Family History Medical History Relation Comments Cancer Father Heart Disease Father Cancer Mother Heart Disease Mother Relation Status Comments Father Mother Social History Tobacco Use Types Packs/Day Years [...] Sign Reading Time Taken Comments Blood Pressure 145/73 11/23/2017 6:33 PM MANAGER DENTAL Pulse 80 11/23/2017 6:33 PM MANAGER DENTAL Temperature 37 C (98.6 F) 11/23/2017 6:33 PM MANAGER DENTAL Respiratory Rate 18 11/23/2017 6:33 PM MANAGER DENTAL Oxygen Saturation 97% 11/23/2017 6:33 PM MANAGER DENTAL Inhaled Oxygen Concentration - - Weight 85.3 kg (188 lb) 11/23/2017 6:33 PM MANAGER DENTAL Height 154.9 cm (5' 1 ) 11/23/2017 6:33 PM MANAGER DENTAL Body Mass Index 35.52 11/23/2017 6:33 PM MANAGER DENTAL Plan of Treatment Health Maintenance Due Date Last Done Comments Colorectal Cancer Screening Colonoscopy (10 Years) 1959 Hepatitis C 1977 Mammogram Screening 1999 Zoster Vaccines (1 of 2) 2009 Dexa Scan (General) 01/30/2024 Pneumococcal Vaccine: 65+ Years (1 of 1 - PCV) 01/30/2024 COVID-19 Vaccine (1 - 2023-2 5 season) 2024 Influenza Adult (#1) 2024 08/02/2020 DTaP, Tdap and Td Vaccines ( 3 - Td or Tdap) 09/09/2027 09/09/2017, 01/28/2007 RSV Immunization or 60+ Years (1 - 1-dose 75+ series) 2034 Meningococcal B Vaccine Aged Out No l onger eligible based on patient's age to complete this topic Meningococcal Vaccine Aged Out No raymond raheem eligible based on patient's age to complete this topic Pneumococcal Vaccine: Pediatrics (0 to 5 Years) and At-Risk Patients (6 to 64 Years) Aged Out No longer eligible b ased on patient's age to complete this topic RSV Immunizations Under 20 Months Aged Out No longer eligible b ased on patient's age to complete this topic Insurance Care Teams Pipe Changer Relationship Specialty Start Date End Date Leatha Ansari PA [address] [place], [place] [id number] PCP - General 02/08/16
--- OUTSIDE RECORDS SUMMARY | 2024-12-19 16:28 | XMS_ITS | Patient Health Summary ---
Author Organization [facility] Address [address] [place] [address] Care Team Providers Care Line Mechanic Name Role Phone Unavailable Primary Care Provider Unavailabl e Note from [facility],non-owned Affiliates and Associated Physician Practices is amultiple site organization consisting of ambulatory clinics and hospital sitesin [place], [place] and [place]. This disclosure is being madepursuant to the Care Everywhere program and may not contain all information available regarding this patient. Last updated 18.[facility] Social History Tobacco Use Types Packs/Day Years Used Date Smoking Tobacco: Never Assessed Sex and Gender Information Value Date Recorded Sex Assigned at Not on file Gender Identity Not on file Sexual Orientation Not on file Procedures * DERMATOPATHOLOGY(Performed 12/09/2022) Performed for Neoplasm of uncertain behavior of skin, Dermatitis, unspecified * DERMATOPATHOLOGY(Performed 04/16/2018) Results * DERMATOPATHOLOGY (12/09/2022 12:00 AM LODE MINER BLASTING) Only the most recent of2 resultswithin the time period is included. Case Report Dermatopathology Report Case: [id number] Authorizing Provider: Enma Granados, Collected: 12/09/2022 12:00 AM CARLIE Ordering Location: [facility] DermPath Lab Received: 12/10/2022 02:05 PM Pathologist: Jaleesa Rios MD Specimens: A) - Skin, left medial brow B) - Skin, right proximal dorsal forearm 1:24 PM LODE MINER BLASTING DERMATOPATHOLOGY LABORATORY Final Diagnosis Specimen A. SKIN, left medial brow: BASAL CELL CARCINOMA, SUPERFICIAL MULTIFOCAL; SUPERFICIAL PORTIONS OF (C44.319) (see microscopic description) Specimen B. 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 The specimen consists of a shave biopsy measuring 5x4x1 mm. Jar 0. Specimen B: Received is one formalin filled container labeled with the patient's name and designated right proximal dorsal forearm. The specimen consists of a shave biopsy measuring 9x8x2 mm. Jar 0. 1:24 PM [facility] Microscopic Description Specimen A. SKIN, left medial brow: Attached to the undersurface of the epidermis, there are superficial portions of small aggregates of basaloid cells with a high nuclear to cytoplasmic ratio and peripheral palisading. Specimen B. SKIN, right proximal dorsal forearm: There is hyperkeratosis alternating with parakeratosis. There is epidermal hyperplasia with disorderly maturation of keratinocytes with nuclear pleomorphism confined to the lower half of the epidermis. Sections show associated acanthosis, hypergranulosis, and hyperkeratosis. The papillary dermis is fibrotic. 1:24 PM [facility] Disclaimer An external and internal positive and negative controls are appropriate for the histochemical, immunohistochemical and immunofluorescence stain(s) in this case (if any), except where stated explicitly. The performance characteristics of the stain(s) cited in this report were developed and its performance characteristic determined by the Dermatopathology Laboratory at [facility], directed by Dr. Ford Davis. These tests need not be, and therefore are not, approved by the [place] Food and Drug Administration. The tests are used for clinical purposes. Billing Codes Specimen Charges Stain Charges 31358 46743 1 1 3 1:24 PM [facility] Embedded Images 1:24 PM [facility] Pathology/Cytology TISSUE SPECIMEN FROM SKIN / Unknown 12/09/2022 12/10/2022 2:05 PM LODE MINER BLASTING Miscellaneous samples (specimen) TISSUE SPECIMEN FROM SKIN / Unknown 12/09/2022 12/10/2022 2:05 PM LODE MINER BLASTING Enma Granados PA-C LAB - PATHOL OGY/CYTOLOGY ORDERABLES Performing Organization Address City/State/RUST Co de Phone Number DERMATOPATHOLOGY LABORATORY [facility] - Department of Dermatology [facility] Medicine [address] [place] [address], [address] [phone]
--- OUTSIDE RECORDS SUMMARY | 2024-12-19 16:28 | XMS_ITS | Clinical Summary ---
Author Organization [facility] Address [address] [place] [address] Care Team Providers Care Recruitment Consultant Name Role Phone Unavailable Primary Care Provider Unavailabl e Source Comments [facility],non-owned Affiliates and Associated Physician Practices is amultiple site organization consisting of ambulatory clinics and hospital sitesin [place], [place], [place] and [place]. This disclosure is being madepursuant to the Care Everywhere program and may not contain all information available regarding this patient. Last updated 18.[facility] Social History Tobacco Use Types Packs/Day Years Used Date Smoking Tobacco: Never Assessed Sex and Gender Information Value Date Recorded Sex Assigned at Not on file Gender Identity Not on file Sexual Orientation Not on file Plan of Treatment Health Maintenance Due Date Last Done Comments BONE DENSITY TESTING 1959 COLOGUARD (AGES 45-75) - COL ON CA SCREENING 1959 COLON MONITORING 1959 COLONOSCOPY - COLON CA SCREENING 1959 CT COLONOGRAPHY - COLON CA SCREENING 1959 Colorectal Cancer Screening 1959 FIT - COLON CA SCREENING 1959 FLEX SIG - COLON CA SCREENING 1959 LIPID TESTING 1959 MAMMOGRAM 1959 PAP SMEAR 1959 HIV SCREENING 1974 HEPATITIS C SCREENING 01/24/1977 DTAP/TDAP/TD VACCINES (1 - Tdap) 1978 PNEUMOCOCCAL VACCINE 50+ (1 of 1 - PCV) 2009 ZOSTER VACCINE (1 of 2) 2009 COVID-19 VACCINE ( - 2023-2 5 season) 2024 INFLUENZA VACCINE (#1) 2024 DEPRESSION SCREENING 10/26/2024 Respiratory Syncytial Virus (RSV) Vaccine Pt: or over 60 yrs (1 - 1-dose 75+ series) 2034 HEPATITIS B VACCINE Aged Out No longe r eligible based on patient's age to complete this topic HIB VACCINE Aged Out No longer eligi ble based on patient's age to complete this topic HPV VACCINE Aged Out No longer eligi ble based on patient's age to complete this topic MENINGOCOCCAL (Group B) VACCINE Aged Out No longer eligible based on patient's age to complete this topic MENINGOCOCCAL VACCINE Aged Out No raymond raheem eligible based on patient's age to complete this topic
== END 2024-12-19 15:11 | disposition home or self-care (01) ==
PROVIDERS: Emergency Provider Nurse Practitioner; PCP Physician Assistant
DX: J02.0 Streptococcal pharyngitis (principal); E11.9 Type 2 diabetes mellitus without complications; Z79.84 Long term (current) use of oral hypoglycemic drugs; I10 Essential (primary) hypertension; Z96.651 Presence of right artificial knee joint
CPT/HCPCS: 87880; 99213; G0463

== ENCOUNTER 2024-12-25 08:33 | Emergency (ER) | payer MEDICARE, OTHER, SELFPAY ==
--- NOTE | 2024-12-25 08:40 | ED.GENADULT ---
HPI - General Adult General Chief complaint: Extremity Injury, Lower Stated complaint: fall, left knee and rib Time Seen by Provider: 12/25/24 08:40 Source: patient Mode of arrival: ambulatory Limitations: no limitations History of Present Illness HPI narrative: 64-year-old female patient presents to the [facility] with complaints of left knee and left rib pain. Patient states that she tripped and fell on landing on her left knee and tumbling over and hitting her left side. Denies hitting her head or loss of consciousness. Patient states that that her left knee did swell up pretty significantly but she has been icing it and elevating it on a pillow and taking ibuprofen for pain and has come down. Patient is able to ambulate on the left knee and is able to bend the knee. Patient states that at time she does have pain with breathing in to the rib area on the left side and does complain about tenderness to the left lateral rib under her bra line that radiates to her back. Related Data Home Medications ?Medication ?Instructions ?Recorded ?Confirmed ?Last Taken ?Type empagliflozin 25 mg tablet 25 mg PO DAILY 08/06/22 08/28/23 Unknown History (Jardiance) ezetimibe 10 mg tablet 10 mg PO DAILY 08/06/22 08/28/23 Unknown History levothyroxine 100 mcg tablet 100 mcg PO DAILY 08/06/22 08/28/23 Unknown History (Synthroid) lisinopril 5 mg tablet 5 mg PO DAILY 08/06/22 08/28/23 Unknown History simvastatin 20 mg tablet 20 mg PO DAILY 08/06/22 08/28/23 Unknown History solifenacin 10 mg tablet 10 mg PO DAILY 08/06/22 08/28/23 Unknown History dulaglutide 0.75 mg/0.5 mL mg subcut 12/19/24 Unknown History subcutaneous pen injector (Trulicity) Allergies Allergy/AdvReac Type Severity Reaction Status Date / Time Sulfa (Sulfonamide Allergy Intermediate Rash Verified 12/25/24 08:48 Antibiotics) Review of Systems Review of Systems: CONSTITUTIONAL: Denies fever, chills, or sweats. EYES: Denies visual changes, redness, or discharge. ENT: Denies rhinorrhea, congestion, sore throat, or otalgia. CARDIOVASCULAR: Denies chest pain, palpitations, or edema. RESPIRATORY: Denies cough or dyspnea. Positive left-sided rib pain GASTROINTESTINAL: Denies abdominal pain, nausea, vomiting, or diarrhea. GENITOURINARY: Denies dysuria or hematuria. SKIN: Denies rash or itching. MUSCULOSKELETAL: Denies back pain, joint pain, or myalgia. Positive left knee pain. NEUROLOGIC: Denies headache, numbness, or weakness. PSYCHIATRIC: Denies anxiety or depression. [facility] Past Medical History Medical History Diabetes Hypertension Surgical History Surgical History History of right knee joint replacement Comments At the time of my signature I agree with nursing past medical history, surgical, social, and family history. There is no relevant family history pertinent to the presenting complaint. Exam Narrative: GENERAL: Well-appearing, well-nourished, and in no acute distress. HEAD: Normocephalic, atraumatic. EYES: PERRLA and EOMI. ENT: Nares clear, no rhinorrhea or epistaxis. Mucous membranes moist. NECK: Supple. No lymphadenopathy CHEST: Clear to auscultation. No respiratory distress. patient has slight tenderness noted to the lateral side of left ribs along the 4th and 5th rib area. No bruising noted no open wounds. HEART: Regular rate and rhythm. No murmur heard. Normal peripheral pulses. ABDOMEN: Soft, nontender, nondistended, normal active bowel sounds. EXTREMITIES: Patient is able to bear weight and ambulate without pain. small abrasion noted to the left knee, obvious effusion noted to the left knee. No overlying erythema or warmth. The L knee is without obvious asymmetry or deformity when compared to the R knee. Patient is able to do deep knee bend with symmetry, fully extend knee, internal and external rotation. tendernss to palpation of the patella, mild to moderate effusion or ballottement. No tenderness over the infrapatellar tendon. No tenderness over the medial or lateral joint lone ot the medial or lateral tibial plateaus. no tenderness over the proximal fibular head. no tenderness, fullness, or mass of the popliteal fossa. No quadriceps tenderness. No laxity of the ACL, PCL, MCL, or LCL. No collateral ligament laxity to valgus or vargus stress. Negative shayla/drawer sign. Negative Mary Anne. Negative Apley compression and/or distraction. Distal motor and neurovascular status intact. SKIN: Warm, dry, no rash. NEURO: No focal deficits. Alert and oriented x3. Course Course Level of Care: Express Care Visit Vital Signs Vital signs: Vital Signs Temperature 36.4 C 12/25/24 08:46 Pulse Rate 67 12/25/24 08:46 Respiratory Rate 18 12/25/24 08:46 Blood Pressure 143/60 H 12/25/24 08:46 Pulse Oximetry 100 12/25/24 08:46 Oxygen Delivery Room Air 12/25/24 08:46 Temperature 36.4 C 12/25/24 08:46 Pulse Rate 67 12/25/24 08:46 Respiratory Rate 18 12/25/24 08:46 Blood Pressure 143/60 H 12/25/24 08:46 Pulse Oximetry 100 12/25/24 08:46 Oxygen Delivery Room Air 12/25/24 08:46 vital signs reviewed. The patient has been informed that they may have pre-hypertension or Hypertension based on a BP reading in the department. I recommend that the patient call the primary care provider listed on their discharge instructions or a physician of their choice this week to arrange follow up for further evaluation of possible pre-hypertension or Hypertension Medical Decision Making MDM Narrative Medical decision making narrative: Plan care patient is to x-ray the left knee and the left-sided ribs to assess for any acute fractures. We will reassess once this has resulted. Differential Diagnosis Differential Diagnosis: Differential diagnosis: Knee contusion, sprain, ligament injury, patellar dislocation, joint dislocation, patella or tibial plateau fracture, Tristan's cyst, DVT, meniscus tear, PCL tear, prepatellar bursitis, septic joint, gout, tumor. Children: Essl-Gdery-Khoqkpz or [place]-Schlatter disease. Vital Signs Vital Signs: Vital Signs Temperature 36.4 C 12/25/24 08:46 Pulse Rate 67 12/25/24 08:46 Respiratory Rate 18 12/25/24 08:46 Blood Pressure 143/60 H 12/25/24 08:46 Pulse Oximetry 100 12/25/24 08:46 Oxygen Delivery Room Air 12/25/24 08:46 Temperature 36.4 C 12/25/24 08:46 Pulse Rate 67 12/25/24 08:46 Respiratory Rate 18 12/25/24 08:46 Blood Pressure 143/60 H 12/25/24 08:46 Pulse Oximetry 100 12/25/24 08:46 Oxygen Delivery Room Air 12/25/24 08:46 Imaging Data Radiologist's impression: [place] [address] XRay Report Signed Patient: Shante Brownlee : 1960 MR#: [id number] Age: 64 Acct:[id number] Loc: EXPTR ADM Date: 12/25/24Attending Dr: Ordering Physician: Xin Vila ESTIMATOR AND DRAFTER Date of Service: 12/25/24 Procedure(s): XR knee LT min 4V Accession Number(s): [id number] cc: Coty, Leatha FRANK; Xin Vila APRN~ Left Knee Technique: AP, lateral, and sunrise views were obtained. Clinical History: Pain Findings: No fracture or dislocation is seen. Osseous alignment is anatomic. Moderate tricompartmental degenerative joint disease present. Soft tissues are unremarkable. No joint effusion is seen. Impression: Moderate tricompartmental degenerative change. Reviewed, dictated and finalized at location . [place] [address] XRay Report Signed Patient: Shante Brownlee : 1960 MR#: [id number] Age: 64 Acct:[id number] Loc: EXPTR ADM Date: 12/25/24Attending Dr: Ordering Physician: Xin Vila ESTIMATOR AND DRAFTER Date of Service: 12/25/24 Procedure(s): XR ribs LT Accession Number(s): [id number] cc: Coty, Leatha FRANK; JulitoXin baird APRN~ AP and oblique views of the left ribs Clinical History: Pain Findings: No rib fracture is seen. Osseous alignment is anatomic. Lungs are clear, without focal consolidation or pleural effusion. Cardiomediastinal contour is within normal limits. Soft tissues are unremarkable. Impression: No rib fracture is seen. Reviewed, dictated and finalized at [facility]. 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 Ice to the area 20-30 minutes 4-6 times a day Elevate above heart Elastic wrap or orthopedic splint as directed for comfort for the next 5-7 days Tylenol for lesser pain Ibuprofen regularly for the next 2-3 days for the inflammation Follow up with your primary care provider if the condition is not improving within 1 week or sooner if the Condition worsens with numbness, tingling, decrease sensation with weakness to seek ER. Patient Language: Beninese Prescriptions: No Action levothyroxine [Synthroid] 100 mcg tablet 100 mcg PO DAILY simvastatin 20 mg tablet 20 mg PO DAILY lisinopril 5 mg tablet 5 mg PO DAILY ezetimibe 10 mg tablet 10 mg PO DAILY solifenacin 10 mg tablet 10 mg PO DAILY Jardiance 25 mg tablet 25 mg PO DAILY Trulicity 0.75 mg/0.5 mL pen injector SUBCUT amoxicillin 875 mg tablet 875 mg PO Q12H Qty: 20 0RF Follow-up/Referrals: Coty,MONIKA Contreras [Primary Care Provider] - Time of Disposition: 09:42
[2024-12-25 08:46] VITALS: BP 143/60; PULSE 67; RESP 18; TEMP 36.4; O2SAT 100
== END 2024-12-25 09:49 | disposition home or self-care (01) ==
PROVIDERS: Emergency Provider Nurse Practitioner Family; PCP Physician Assistant
DX: M23.92 Unspecified internal derangement of left knee (principal); R07.81 Pleurodynia; E11.9 Type 2 diabetes mellitus without complications; I10 Essential (primary) hypertension; W18.30XA Fall on same level, unspecified, initial encounter
CPT/HCPCS: 71100; 73564; 99214; G0463

== ENCOUNTER 2025-01-12 14:07 | Emergency (ER) | payer MEDICARE, OTHER, SELFPAY ==
[2025-01-12 14:16] VITALS: BP 141/58; PULSE 73; RESP 16; TEMP 36.4; O2SAT 97
--- OUTSIDE RECORDS SUMMARY | 2025-01-12 14:36 | XMS_ITS | Encounter Summary ---
Author Organization [facility] Address [facility] [place] [address] Care Team Providers Care Mail List Librarian Name Role Phone Leatha Ansari Primary Care Provider [phone] Encounter Details Date Type Department Care Team (Latest Contact Info) Description 08/31/2018 Abstract [facility] , Santhosh Vale MD [...] Rule Out 11/22/2020 11/22/2020 11/23/2020 7:30 PM HOSIERY MATER documented as of this encounter Care Teams Mail List Librarian Relationship Specialty Start Date End Date Leatha Ansari PA [address] [place] [address] PCP - General 02/08/16 documented as of this encounter
--- OUTSIDE RECORDS SUMMARY | 2025-01-12 14:36 | XMS_ITS | Clinical Summary ---
Author Organization [facility] Address [address] [place] [address] Care Team Providers Care Rotary Lithographic Press Operator Name Role Phone Unavailable Primary Care Provider Unavailabl e Source Comments [facility],non-owned Affiliates and Associated Physician Practices is amultiple site organization consisting of ambulatory clinics and hospital sitesin [place], [place], [place]. This disclosure is being madepursuant to the Care Everywhere program and may not contain all information available regarding this patient. Last updated 18.[facility] Social History Tobacco Use Types Packs/Day Years [...] to complete this topic MENINGOCOCCAL (Group B) VACC INE SHARED DECISION-MAKING Aged Out No longer eligibl e based on patient's age to complete this topic MENINGOCOCCAL GROUPS A/C/Y/W VACCINE Aged Out No longer eligible b ased on patient's age to complete this topic
--- OUTSIDE RECORDS SUMMARY | 2025-01-12 14:36 | XMS_ITS | Clinical Summary ---
Author Organization [facility] Address [facility] [place] [address] Care Team Providers Care Scale Reclamation Tender Name Role Phone Leatha Ansari Primary Care Provider [phone] Allergies Active Allergy Reactions Criticality Noted Date [...] Comments Blood Pressure 145/73 11/23/2017 6:33 PM CAPACITY MANAGEMENT SPECIALIST Pulse 80 11/23/2017 6:33 PM CAPACITY MANAGEMENT SPECIALIST Temperature 37 C (98.6 F) 11/23/2017 6:33 PM CAPACITY MANAGEMENT SPECIALIST Respiratory Rate 18 11/23/2017 6:33 PM CAPACITY MANAGEMENT SPECIALIST Oxygen Saturation 97% 11/23/2017 6:33 PM CAPACITY MANAGEMENT SPECIALIST Inhaled Oxygen Concentration - - Weight 85.3 kg (188 lb) 11/23/2017 6:33 PM CAPACITY MANAGEMENT SPECIALIST Height 154.9 cm (5' 1 ) 11/23/2017 6:33 PM CAPACITY MANAGEMENT SPECIALIST Body Mass Index 35.52 11/23/2017 6:33 PM CAPACITY MANAGEMENT SPECIALIST Plan of Treatment Health Maintenance Due Date [...] to complete this topic Insurance Care Teams Scale Reclamation Tender Relationship Specialty Start Date End Date Leatha Ansari PA [address] [place] [address] PCP - General 02/08/16
--- OUTSIDE RECORDS SUMMARY | 2025-01-12 14:36 | XMS_ITS | Continuity of Care Document ---
Author Name [facility] Organization [facility] Care Team Providers Care Chart Changer Name Role Phone [employer] Unavailable Unavailable Medications Combined list of outpatient medications from Department of Defense and Veterans Affairs facilities.Medications provided include 1) outpatient medications from the last 15 months, and 2) patient-reported medications. Medication Details Route Status Patient Instructions Prescription Expires Prescription Number Last Dispense Date Ordering Provider Order Date Order Qty Source dulaglutide 1.5 mg/0.5 mL pen [4EA=2mL] See Instruct zoila, # 2 mL, 11 total refill(s ), Soft Stop Notes: refriger ate Ordered 5 2024 2.0 Ambulat ory Pharmac y ezetimibe 10 mg [...] (given by mouth) Discont inued 05/24/2024 4 07/30/ 2024 90.0 Ambulat ory Pharmac y levothyroxi [...] 4 2023 90.0 Ambulat ory Pharmac y lisinopril 5 mg tablet 5 mg, Oral, Daily, # 90 EA, 0 total refill(s ), Hard Stop Oral (given by mouth) Discont inued 01/10/2025 5 2024 90.0 Ambulat ory Pharmac y lisinopril 5 mg tablet See Instruct ions, # 90 EA, 3 total refill(s ), Soft Stop Ordered 5 2024 90.0 Ambulat ory Pharmac y [...] 2023 180.0 Ambulat ory Pharmac y simvastatin 20 mg tablet 20 mg, TAKE ONE TABLET DAILY, # 90 EA, 3 total refill(s ), Acute Complet ed 11/09/2023 4 2023 90.0 Ambulat ory Pharmac y simvastatin 20 mg tablet See Instruct ions, # 90 EA, 3 total refill(s ), Hard Stop Ordered 05/06/2025 4 2023 90.0 Ambulat ory Pharmac y solifenacin 10 mg tablet See Instruct ions, # 90 EA, 3 total refill(s ), Soft Stop Ordered 5 2024 90.0 Ambulat ory Pharmac y Trulicity Pen 0.75 [...] drug Unknown Active 4 rash per pt [id number] q Unknown Organization Immunizations Combined list of available immunizations from the Department of Defense and Veterans Affairs facilities. Immunization Series Date Given Administered By Site Reaction Lot Number CVX Code Drug Transportation Security Officer Status Comments Source tuberculin purified protein derivative 2006 zzLef t Arm [id number] 96 [employer] pasteur [facility] ed Patient Tolerance : Negative Ambulat ory Pharmac y Procedures Combined list of: 1) Procedures from Department of Veterans Affairs facilities going back up to thelast 18 months, not all [place] non-surgical procedures are included; 2) All procedures from the Department of Defense facilities. Procedure Procedure Type Code Date Perfomer Comments Sourc e No data available for this section Ambulatory P harmacy Assessment and Plan Combined list of future care activities from Department of Defense and Veterans Affairs facilities (e.g., assessment and plan notes, appointments, orders, and referrals). Additional future care activities may be listed in the Plan of Care section. Result Assessment and Plan Date Source Assessment and Plan No data available for this section 01/12/2025 Ambulatory Pharmacy Functional Status Combined list of recent functional and cognitive assessments recorded at [facility] of Defense and [facility] ([facility]).VA Functional [place] Measurement (FIM) Scale: 1 = Total Assistance (Subject = 0% +), 2 = Maximal Assistance (Subject = 25% +), 3 = Moderate Assistance (Subject = 50% +), 4 = Minimal Assistance (Subject = 75% +), 5 = Supervision, 6 = Modified [place] (Device), 7 = Complete [place] (Timely, Safely). Assessment Date/Time Source Assessment Type Assessment Skill Assessment Score Assessment Details No data available for this section
--- OUTSIDE RECORDS SUMMARY | 2025-01-12 14:36 | XMS_ITS | Encounter Summary ---
Author Organization [facility] Address [address] [place] [address] Care Team Providers Care Tire Technician Name Role Phone Unavailable Primary Care Provider Unavailabl e Encounter Details Date Type Department Care Team (Late st Contact Info) Description 04/20/2018 Lab Requisition [facility] DermPath Lab [address] [place] [id number] Beto Potts MD [address] [phone] Social History Tobacco Use Types [...] AM CDT) Case Report Dermatopathology Report Case: [id number] Authorizing Provider: Beto Potts MD Collected: 04/16/2018 [...] (D23.9) PRESENT AT MARGIN 8 1:26 PM [facility] DERMATOPATHOLOGY [facility]ORAT[facility] Clinical History A-B: AK vs mal. Check margins. 1:26 PM T DERMATOPATHOLOGY LABORATORY Gross Description Specimen A: Received is one formalin filled container labeled with the patient's name and designated right forearm. The specimen consists of a shave biopsy measuring [id number]. The margin is inked green. Jar 0. Specimen B: Received is one formalin filled container labeled with the patient's name and designated left upper back / scapula area. The specimen consists of a shave biopsy measuring [id number]. The margin is inked green. Jar 0. [...] the margin of the specimen. 1:26 PM [facility] DERMATOPATHOLOGY [facility] Disclaimer An external and internal positive and negative controls are appropriate for the histochemical, immunohistochemical and immunofluorescence stain(s) in this case (if any), except where stated explicitly. The performance characteristics of the stain(s) cited in this report were developed and its performance characteristic determined by the Dermatopathology Laboratory at [facility]. These tests need not be, and therefore are not, approved by the [place] Food and Drug Administration. The tests are used for clinical purposes. Billing Codes Specimen Charges Stain Charges 40690 60657 1 1 8 1:26 PM CDT DERMATOPATHOLOGY LABORATORY Embedded Images 1:26 PM CDT DERMATOPATHOLOGY LABORATORY Pathology/Cytology TISSUE SPECIMEN FROM SKIN / Unknown 04/16/2018 04/20/2018 8:24 AM CDT Miscellaneous samples (specimen) TISSUE SPECIMEN FROM SKIN / Unknown 04/16/2018 04/20/2018 8:24 AM CDT Beto Potts MD LAB - PATHOLOGY/CYTO LOGY ORDERABLES DERMATOPATHOLOGY LABORATORY [facility] - Department of Dermatology [facility] [facility] 5th Floor Lab B [address] [phone] documented in this encounter Visit Diagnoses Not on filedocumented in this encounter
--- NOTE | 2025-01-12 14:37 | ED.SKABFB ---
HPI - Skin/Abscess/Foreign Bdy General Chief complaint: Skin/Abscess/Foreign Body Stated complaint: Shingle on LT Arm Source: patient Mode of arrival: ambulatory Limitations: no limitations History of Present Illness HPI narrative: 64-year-old female presented for complaint of rash to left arm, first noticed blisters 2 days ago. Patient states she had fallen onto her left side about 3 weeks ago. She was seen by her PCP 6 days ago, and reported the arm pain which she described as 'it felt asleep;' and was advised Tylenol and ibuprofen. She applied Salon Pas to the shoulder 3 days ago, when she removed the patch she saw blisters, which now extend down to the hand. Endorses occasional tingling sensation to the arm and the arm is aching. Has applied calamine spray to the blisters. reports hx shingles 30 years ago, says this pain is worse. Related Data Home Medications ?Medication ?Instructions ?Recorded ?Confirmed ?Last Taken ?Type empagliflozin 25 mg tablet 25 mg PO DAILY 08/06/22 08/28/23 Unknown History (Jardiance) ezetimibe 10 mg tablet 10 mg PO DAILY 08/06/22 08/28/23 Unknown History levothyroxine 100 mcg tablet 100 mcg PO DAILY 08/06/22 08/28/23 Unknown History (Synthroid) lisinopril 5 mg tablet 5 mg PO DAILY 08/06/22 08/28/23 Unknown History simvastatin 20 mg tablet 20 mg PO DAILY 08/06/22 08/28/23 Unknown History solifenacin 10 mg tablet 10 mg PO DAILY 08/06/22 08/28/23 Unknown History dulaglutide 0.75 mg/0.5 mL mg subcut 12/19/24 Unknown History subcutaneous pen injector (Trulicity) dulaglutide 1.5 mg/0.5 mL mg subcut 01/12/25 Unknown History subcutaneous pen injector (Trulicity) Allergies Allergy/AdvReac Type Severity Reaction Status Date / Time Sulfa (Sulfonamide Allergy Intermediate Rash Verified 01/12/25 14:15 Antibiotics) Review of Systems Review of Systems: CONSTITUTIONAL: Denies body aches, fever, chills, or sweats. EYES: Denies visual changes, redness, or discharge. ENT: Denies rhinorrhea, congestion CARDIOVASCULAR: Denies chest pain, palpitations, or edema. RESPIRATORY: Denies cough or dyspnea. GASTROINTESTINAL: Denies abdominal pain, nausea, vomiting, or diarrhea. SKIN: reports rash left arm MUSCULOSKELETAL: Denies back pain, joint pain, or myalgia. NEUROLOGIC: Denies headache, numbness, weakness reports some tingling to left arm PMFSH Past Medical History Medical History Diabetes Hypertension Surgical History Surgical History History of right knee joint replacement Comments At time of signature, I have reviewed and agree with nursing past medical, surgical, social and family history unless otherwise noted. Please see nursing chart for further information. There is no relevant family history pertinent to the presenting complaint Exam Narrative: GENERAL: Well-appearing HEAD: Normocephalic, atraumatic. EYES: conjunctivae clear, and EOMI. ENT: Mucous membranes moist. Oropharynx without edema, erythema or lesions. NECK: Supple. No lymphadenopathy CHEST: Clear to auscultation. HEART: Regular rate and rhythm. SKIN: Warm, dry. Left arm extending from deltoid to wrist with scattered vesicular patches on erythematous base c/w zoster. NEURO: Alert and oriented x3. Course Course Emergency Course: Patient is aware of diagnosis, understands and agrees to treatment plan. Anticipatory guidance given. Patient agrees to follow-up as directed and is aware of reasons to seek care at the emergency department. Portions of this record may have been created with voice recognition software Level of Care: Express Care Visit Vital Signs Vital signs: Vital Signs Temperature 97.6 F 01/12/25 14:16 Pulse Rate 73 01/12/25 14:16 Respiratory Rate 16 01/12/25 14:16 Blood Pressure 141/58 H 01/12/25 14:16 Pulse Oximetry 97 01/12/25 14:16 Oxygen Delivery Room Air 01/12/25 14:16 Temperature 97.6 F 01/12/25 14:16 Pulse Rate 73 01/12/25 14:16 Respiratory Rate 16 01/12/25 14:16 Blood Pressure 141/58 H 01/12/25 14:16 Pulse Oximetry 97 01/12/25 14:16 Oxygen Delivery Room Air 01/12/25 14:16 Reviewed MDM - Skin/Abscess/Foreign Bdy MDM Narrative Medical decision making narrative: Discussed physical exam findings c/w zoster. Rx steroid, she is aware it may increase Blood sugar levels. Advised supportive measures and signs/symptoms to go to the ER. Pt is appropriate for outpt treatment and f/u. Instructed patient to go to nearest ER immediately for any worsening symptoms including but not limited to: fever, spreading rash, pain, sore throat, headache, dizziness, chest pain, trouble breathing, or any symptoms concerning to the patient. Differential Diagnosis Differential diagnosis: Likely abscess of skin or subcutaneous tissue, urticaria, herpes zoster, cellulitis and contact dermatitis Discharge Plan Discharge Clinical Impression: Herpes zoster Patient Disposition: Home, Self-Care Condition: Stable Instructions: Antibiotic Form, Shingles (ED) Additional Instructions: Take medication as directed Keep the lesions covered until they are fully crusted over - you are contagious (to spread chicken pox) until they are dried Avoid contact with women or people who have not had chickenpox vaccination. Tylenol 1000mg every 8 hours as needed Follow up with your primary care provider next week. Go to the ER for worsening symptoms or concerns. Patient Language: Yoruba Prescriptions: New valacyclovir 1 gram tablet 1,000 mg PO Q8H 7 Days Qty: 21 0RF methylprednisolone [Medrol (Juan)] 4 mg tablets,dose pack See Rx Instructions .ROUTE .COMPLEX Qty: 21 0RF Rx Instructions: orally per package directions No Action levothyroxine [Synthroid] 100 mcg tablet 100 mcg PO DAILY simvastatin 20 mg tablet 20 mg PO DAILY lisinopril 5 mg tablet 5 mg PO DAILY ezetimibe 10 mg tablet 10 mg PO DAILY solifenacin 10 mg tablet 10 mg PO DAILY Jardiance 25 mg tablet 25 mg PO DAILY Trulicity 0.75 mg/0.5 mL pen injector SUBCUT Trulicity 1.5 mg/0.5 mL pen injector SUBCUT Follow-up/Referrals: Coty,MONIKA Contreras [Primary Care Provider] - Time of Disposition: 14:40
--- OUTSIDE RECORDS SUMMARY | 2025-01-12 14:38 | XMS_ITS | Clinical Summary ---
Author Organization [address] Address [address] [place] [id number] Care Team Providers Care Pnp Name Role Phone Beto Potts MD Unavailable + [phone] Beto Potts MD Unavailable + [phone] Leatha Ansari Primary Care Provider [phone] Beto Potts MD Unavailable + [phone] Samir Garcia Unavailable [phone] Allergies Active Allergy Reactions Criticality Noted Date Comments Sulfa (Sulfonamide Antibiotics) Other (See comments),Hives Medium 11/23/2017 Medications blood-glucose meter kit 2 (two) times a week 018 Active OMEGA-3 FATTY ACIDS-EPA ORAL 1,200 mg early intervention specialist before breakfast 011 Active CHOLECALCIFEROL, VITAMIN D3, ORAL 5,000 Units every morning 011 Active biotin 1 mg capsule early intervention specialist before breakfast 019 Active blood glucose diagnostic (FreeStyle Lite Strips) strip Testing bid, due to hyperglycemia 100 each 3 020 Active fluorouraciL (EFUDEX) 5 % cream 023 Active fluticasone propionate (FLONASE) 50 mcg/actuation nasal sprayIndications: Postnasal drip SHAKE LIQUID AND USE 2 SPRAYS IN EACH NOSTRIL DAILY 48 g Active ammonium lactate (AMLACTIN) 12 % cream APPLY TO THE AFFECTED AREA ON FEET TWICE DAILY 024 Active levothyroxine (SYNTHROID) 100 mcg tabletIndications :Other specified hypothyroidism Take 1 tablet (100 mcg total) by mouth daily 90 tablet 3 024 2024 Active ezetimibe (ZETIA) 10 mg tabletIndications :Mixed hyperlipidemia Take 1 tablet (10 mg total) by mouth daily after lunch 90 tablet 3 024 2024 Active simvastatin (ZOCOR) 20 mg tabletIndications :Mixed hyperlipidemia Take 1 tablet (20 mg total) by mouth daily 90 tablet 3 024 2024 Active empagliflozin (Jardiance) 25 mg tabletIndications :Type 2 diabetes mellitus with stage 1 chronic kidney disease, without long-term current use of insulin (HCC) Take 1 tablet (25 mg total) by mouth daily 90 tablet 3 024 2024 Active methocarbamoL (ROBAXIN) 500 mg tabletIndications :Left-sided chest wall pain Take 1 tablet (500 mg total) by mouth 4 (four) times a day as needed for muscle spasms 40 tablet 025 2024 Active dulaglutide (TRULICITY) 1.5 mg/0.5 mL pen injectorIndicatio ns:Type 2 diabetes mellitus with stage 1 chronic kidney disease, without long-term current use of insulin ([facility]) Inject 0.5 mL (1.5 mg total) under the skin once a week 6 mL 3 025 2025 Active lisinopriL (PRINIVIL,ZESTRIL ) 5 mg tabletIndications :Benign essential hypertension Take 1 tablet (5 mg total) by mouth daily 90 tablet 3 025 2025 Active solifenacin (VESIcare) 10 mg tabletIndications :Overactive bladder Take 1 tablet (10 mg total) by mouth daily 90 tablet 3 Active metFORMIN (GLUCOPHAGE) 1,000 mg tabletIndications :Type 2 diabetes mellitus with stage 1 chronic kidney disease, without long-term current use of insulin (HCC) Take 1 tablet (1,000 mg total) by mouth 2 (two) times a day 180 tablet 3 024 2024 Discontinued solifenacin (VESIcare) 10 mg tabletIndications :Overactive bladder TAKE 1 TABLET DAILY 90 tablet 3 024 2024 Discontinued(R eorder) dulaglutide (TRULICITY) 0.75 mg/0.5 mL pen injector Inject 0.5 mL (0.75 mg total) under the skin every 7 days 6 mL 3 024 2024 Discontinued lisinopriL (PRINIVIL,ZESTRIL ) 5 mg tabletIndications :Benign essential hypertension Take 1 tablet (5 mg total) by mouth daily 90 tablet 025 2024 Discontinued(R eorder) methocarbamoL (ROBAXIN) 500 mg tabletIndications :Left-sided chest wall pain Take 1 tablet (500 mg total) by mouth 4 (four) times a day as needed for muscle spasms 40 tablet 025 2024 Discontinued Active Problems Problem Noted Date Diagnosed Date Low bone mass 02/05/2024 Overview (02/05/2024): 2023 scan: Assessment & Plan (01/06/2025 2:48 PM CDT): Chronic, stable, continue calcium, vitamin-D, and weight based exercises Class 1 obesity due to exces s calories with serious comorbidity and body mass index (BMI) of 32.0 to 32.9 in adult 03/23/2020 Assessment & Plan (11/27/2023 3:26 PM HUMAN SERVICES CASE MANAGER): Educated patient on healthy diet/exercise plan. Exercise 150min-300min per week of moderate intensity. Diet: good, healthy protein (eggs, nuts, peanut butter, chicken, fish, turkey, less pork/beef), lots of vegetables, less carbohydrates and less sugar. Assessment & Plan (11/10/2022 12:05 PM HUMAN SERVICES CASE MANAGER): Uncontrolled. Goal of BMI is less than 30. Educated patient on healthy diet/exercise plan. Exercise 150min-300min per week of moderate intensity. Diet: good, healthy protein (eggs, nuts, peanut butter, chicken, fish, turkey, less pork/beef), lots of vegetables, less carbohydrates and less sugar. Patient has lost 3 lb Assessment & Plan (11/22/2021 7:51 AM HUMAN SERVICES CASE MANAGER): Uncontrolled. Goal of BMI is less than [...] ortho Assessment & Plan (09/12/2019 10:10 AM HUMAN SERVICES CASE MANAGER): Currently the nausea and constipation far worse. [...] repeat evaluation. Health maintenance examination 03/30/2019 Overview (01/06/2025): PMH\MWV: 01/06/25 Last pap: 10/28/21 Last mammogram:04/2024 Last dexa: 01/2024 Last colonoscopy/cologuard: 11/2021 repeat 2024 Last Hep C:08/2017 Last hep b series: completed in past Last tdap:09/09/2017 Last Prevnar/pneumovax: prevnar 20 01/06/25 Last Shingrix:get pharmacy Last eye exam:11/14/24 Assessment & Plan (01/06/2025 2:15 PM CDT): PMH\MWV: 01/06/25 Last pap: 10/28/21 Last mammogram:04/2024 Last dexa: 01/2024 Last colonoscopy/cologuard: 11/2021 repeat 2024 Last Hep C:08/2017 Last hep b series: completed in past Last tdap:09/09/2017 Last Prevnar/pneumovax: prevnar 20 01/06/25 Last Shingrix:get pharmacy Last eye exam:11/14/24 Assessment & Plan (11/27/2023 1:57 PM HUMAN SERVICES CASE MANAGER): PMH: 11/27/23 Last pap: 10/28/21 Last mammogram:04/2023 Last dexa: ordered Last colonoscopy/cologuard: 11/2021 repeat 2024 Last Hep C:08/2017 Last hep b series: completed in past Last tdap:09/09/2017 Last Prevnar/pneumovax: due pt declined 02/2018, pt declined 02/2020, Last Shingrix:get pharmacy Last eye exam:11/23/23 Assessment & Plan (11/10/2022 11:16 AM HUMAN SERVICES CASE MANAGER): PMH: 11/10/2022 Last pap: due, referral to [facility] Last mammogram:11/2018, 05/25/2020, 09/2021 Last dexa: Last colonoscopy/cologuard: 05/2016, 11/2021 repeat 2024 Last Hep C:08/2017 Last hep b series: completed in past Last tdap:09/09/2017 Last Prevnar/pneumovax: due pt declined 02/2018, pt declined 02/2020, Last Shingrix:due, info [place] ,[place] Last eye exam:10/28/2018, 08/16/2020 , 11/11/2022 Assessment & Plan (08/05/2021 1:44 PM CDT): PMH: 08/05/2021 Last pap: due, referral to [facility] Last mammogram:11/2018, 05/25/2020 Last dexa: Last colonoscopy/cologuard: [...] Benign essential hypertension 11/05/2018 Assessment & Plan (01/06/2025 2:48 PM CDT): Chronic, stable, continue lisinopril Assessment & Plan (11/27/2023 3:25 PM HUMAN SERVICES CASE MANAGER): Stable, continue current meds. Assessment & Plan (11/10/2022 12:05 PM HUMAN SERVICES CASE MANAGER): Stable, continue current meds Assessment & Plan (11/22/2021 7:50 AM HUMAN SERVICES CASE MANAGER): Stable, continue current meds. Follow-up in February [...] chronic kidney disease 03/08/2018 Assessment & Plan (01/06/2025 2:47 PM CDT): Chronic, at goal with an A1c of 6.9. Goal is less than 7. We are going to increase the Trulicity to 1.5 mg to see if we can improve her A1c a little bit more and help a little bit with weight loss. Patient denies any issues with her feet Assessment & Plan (11/27/2023 3:24 PM HUMAN SERVICES CASE MANAGER): Stable, order labs. Foot exam completed today. Continue current meds Assessment & Plan (11/10/2022 12:07 PM HUMAN SERVICES CASE MANAGER): Uncontrolled. A1c at 7.3. Talked with patient about options. She wanted to continue working on weight loss, exercise, and dietary changes. Patient would like to repeat labs in February. If A1c is not at goal will talk about adding another medication Patient has eye exam scheduled this week. Foot exam completed today Assessment & Plan (11/22/2021 7:52 AM HUMAN SERVICES CASE MANAGER): Uncontrolled. Goal of A1c is less than [...] disease, stage 1 03/08/2018 Assessment & Plan (01/06/2025 2:48 PM CDT): Chronic, monitoring with labs Assessment & Plan (11/27/2023 3:25 PM HUMAN SERVICES CASE MANAGER): Stable, monitor labs Assessment & Plan (11/10/2022 12:05 PM HUMAN SERVICES CASE MANAGER): Stable, continue current meds Assessment & Plan (11/22/2021 7:51 AM HUMAN SERVICES CASE MANAGER): Stable, continue current treatment plan. Check urine microalbumin in February Assessment & Plan (08/05/2021 1:59 PM CDT): Stable, continue to monitor with labs Assessment & Plan (01/28/2021 9:57 AM CDT): Stable Assessment & Plan (03/23/2020 9:47 AM CDT): Stable Assessment & Plan (01/16/2020 8:48 AM CDT): Stable Assessment & Plan (08/08/2019 12:55 PM CDT): Well controlled long-term current use of oral hypoglycemic drug 12/24/2016 Overactive bladder 09/17/2016 Assessment & Plan (01/06/2025 2:48 PM CDT): Chronic, stable, continue VESIcare Assessment & Plan (11/27/2023 3:24 PM HUMAN SERVICES CASE MANAGER): Stable, continue VESIcare Assessment & Plan (11/10/2022 12:06 PM HUMAN SERVICES CASE MANAGER): Stable Assessment & Plan (11/22/2021 7:51 AM HUMAN SERVICES CASE MANAGER): Stable, continue meds Assessment & Plan (08/05/2021 2:00 PM CDT): Stable, continue meds Assessment & Plan (03/23/2020 9:48 AM CDT): Stable continue meds Assessment & Plan (08/08/2019 12:56 PM CDT): Stable continue meds Allergic rhinitis due to pollen 09/17/2016 Assessment & Plan (11/27/2023 3:25 PM HUMAN SERVICES CASE MANAGER): Stable, continue meds Assessment & Plan (11/10/2022 12:05 PM HUMAN SERVICES CASE MANAGER): Stable, continue current meds Assessment & Plan (08/05/2021 1:59 PM CDT): Stable, p.r.n. meds Assessment & Plan (03/23/2020 9:47 AM CDT): Stable with p.r.n. meds Assessment & Plan (08/08/2019 12:55 PM CDT): Stable Vitamin D deficiency 02/04/2016 Assessment & Plan (11/27/2023 3:24 PM HUMAN SERVICES CASE MANAGER): Stable, continue vitamin-D Assessment & Plan (11/10/2022 12:07 PM HUMAN SERVICES CASE MANAGER): Stable, continue Assessment & Plan (08/05/2021 2:01 PM CDT): Stable, continue vitamin Assessment & Plan (03/23/2020 9:49 AM CDT): Stable continue vitamin-D Assessment & Plan (01/16/2020 8:49 AM CDT): Stable continue vitamin-D Assessment & Plan (08/08/2019 12:56 PM CDT): Stable continue vitamin-D Restless legs syndrome 02/04/2016 Assessment & Plan (01/06/2025 2:48 PM CDT): Chronic, stable, Assessment & Plan (11/27/2023 3:24 PM HUMAN SERVICES CASE MANAGER): Stable Assessment & Plan (11/10/2022 12:06 PM HUMAN SERVICES CASE MANAGER): Stable Assessment & Plan (08/05/2021 2:00 PM CDT): Stable, continue meds Assessment & Plan (03/23/2020 9:49 AM CDT): Stable Assessment & Plan (08/08/2019 12:56 PM CDT): Stable continue meds Other specified hypothyroidism 02/04/2016 Assessment & Plan (11/27/2023 3:24 PM HUMAN SERVICES CASE MANAGER): Stable, continue meds, order labs Assessment & Plan (11/10/2022 12:06 PM HUMAN SERVICES CASE MANAGER): Stable, continue meds Assessment & Plan (08/05/2021 [...] 02/04/2016 Assessment & Plan (11/27/2023 3:24 PM HUMAN SERVICES CASE MANAGER): Unchanged Assessment & Plan (11/10/2022 12:06 PM HUMAN SERVICES CASE MANAGER): Unchanged Assessment & Plan (08/05/2021 2:00 PM CDT): Stable no CPAP machine at this time Assessment & Plan (03/23/2020 9:48 AM CDT): Stable Assessment & Plan (08/08/2019 12:56 PM CDT): Stable not on CPAP Mixed hyperlipidemia 01/11/2016 Overview (03/30/2019): Failed lipitor Assessment & Plan (01/06/2025 2:48 PM CDT): Chronic, stable, continue simvastatin and Zetia Assessment & Plan (11/27/2023 3:24 PM HUMAN SERVICES CASE MANAGER): Stable, continue Zocor Assessment & Plan (11/10/2022 12:06 PM HUMAN SERVICES CASE MANAGER): Uncontrolled. Patient's numbers are slightly up. We talked about possibly increasing meds patient wanted to try to improve her numbers on her own. Repeat labs in February. If heart risk is not less than 7.5% we will consider increasing simvastatin to 40 mg Assessment & Plan (11/22/2021 7:51 AM HUMAN SERVICES CASE MANAGER): Patient will check labs in February, continue [...] movement Assessment & Plan (11/27/2023 3:25 PM HUMAN SERVICES CASE MANAGER): Stable, no meds at this time Assessment & Plan (11/10/2022 12:06 PM HUMAN SERVICES CASE MANAGER): Stable Assessment & Plan (08/05/2021 2:00 PM CDT): Stable, continue meds Assessment & Plan (03/23/2020 9:49 AM CDT): Stable Assessment & Plan (08/08/2019 12:56 PM CDT): Stable continue meds Fatty liver Overview (03/30/2019): biopsy showed CHANEL Assessment & Plan (11/27/2023 3:25 PM HUMAN SERVICES CASE MANAGER): Continue working on weight loss, monitor liver function Assessment & Plan (11/10/2022 12:05 PM HUMAN SERVICES CASE MANAGER): Working on weight loss, monitoring labs Assessment & Plan (11/22/2021 7:51 AM HUMAN SERVICES CASE MANAGER): Stable, ALT and AST continue to improve. [...] therapy. Assessment & Plan (12/19/2019 3:25 PM HUMAN SERVICES CASE MANAGER): Patient making slow progress. 92 of flexion now. Achy after physical therapy. Wants to continue with therapy. Follow up in 6 weeks for repeat evaluation. Assessment & Plan (11/21/2019 1:10 PM HUMAN SERVICES CASE MANAGER): Begin Medrol Dosepak. Begin meloxicam 15 mg once daily. Continue Flexeril. Continue with aggressive physical therapy,GILDA bracing and CPM. Follow-up in 4 weeks for repeat evaluation. Assessment & Plan (10/07/2019 12:34 PM HUMAN SERVICES CASE MANAGER): We discussed the risks, benefits and alternatives. [...] Encounters Date Type Department Care Team Description 01/09/2025 Results Follow-Up [address] [phone] Tiffanie Tinoco PA 01/06/2025 2:00 PM CDT Office Visit [address] [phone] Leatha Ansari PA Medicare annual wellness visit, initial (Primary Dx); Risk for falls; Health maintenance examination; Type 2 diabetes mellitus with stage 1 chronic kidney disease, without long-term current use of insulin (HCC); Low bone mass; Chronic kidney disease, stage 1; Restless legs syndrome; Mixed hyperlipidemia; Benign essential hypertension; Overactive bladder; Screening for colon cancer; Acute pain of left knee 01/04/2025 Results Follow-Up [address] [phone] Leatha Ansari PA 01/02/2025 2:24 PM CDT - 01/02/2025 11:59 PM CDT Hospital Encounter [facility] [address] [place] [id number] Left-sided chest wall pain; Acute pain of left knee Discharge Disposition: Discharge to home or self care 01/02/2025 Orders Only [address] [phone] Leatha Ansari PA Acute pain of left knee (Primary Dx) 01/02/2025 Nurse Triage [address] [phone] Leatha Ansari PA 12/31/2024 7:50 AM HUMAN SERVICES CASE MANAGER Lab [facility] Lab [address] [place] [id number] Type 2 diabetes mellitus with stage 1 chronic kidney disease, without long-term current use of insulin (HCC); Chronic kidney disease, stage 1; Benign essential hypertension; Mixed hyperlipidemia; Vitamin D deficiency 12/28/2024 3:15 PM HUMAN SERVICES CASE MANAGER Office Visit [address] [phone] Enma Segura MD Left-sided chest wall pain (Primary Dx); Acute pain of left knee; History of recent fall; Class 1 obesity due to excess calories with serious comorbidity and body mass index (BMI) of 32.0 to 32.9 in adult 12/28/2024 Nurse Triage [address] [phone] Leatha Ansari PA 11/22/[address] [phone] Leatha Ansari PA Additional Services Or Orders from Last 3 Months Immunizations Immunization Administration Dates Next Due Influenza, Quadrivalent, Spl it, Preservative Free, Intramuscular 08/05/2023,09/05/2022,08/05/2021,08/02 Influenza, Unspecified 08/09/2024 PPD TEST 06/10/2023,03/29/2007 Pfizer SARS-CoV-2 Monovalent Vaccination [...] knee 06/29/2019 Arthrofibrosis of total knee replacement 10/07/2019 Manipulation under anesthesi a November 07, [...] drink containing alc ohol? Monthly or less 12/28/2024 Q2: How many drinks containi ng alcohol do you have on a typical day when you are drinking? 1 or 2 12/28/2024 Q3: How often do you have si x or more drinks on one occasion? Never 12/28/2024 PHQ-2 Answer Date Recorded PHQ-2 Total Score (If total score is 3 or more points, staff should administer the PHQ-9) 0 01/06/2025 PHQ-9 Answer Date Recorded PHQ-9 Total Score 1 01/06/2025 Comments No Sex and Gender Information Value Date Recorded Sex Assigned at Not on file Legal Sex Female 2:18 PM HUMAN SERVICES CASE MANAGER Gender Identity Not on file Sexual Orientation Not on file Obstetrics History Para Term AB IAB SAB Ectopic Multiple Livin g Live Births 2 2 2 2 Date Outcome GA Total Labor Labor/2nd/3rd Weight Sex Type Anes PTL Vani A1 A5 Name Clin Term Term Last Filed Vital Signs Vital Sign Reading Time Taken Comments Blood Pressure 120/68 01/06/2025 1:58 PM CDT Pulse 86 01/06/2025 1:58 PM CDT Temperature 36.6 C (97.9 F) 01/06/2025 1:58 PM CDT Respiratory Rate 16 01/06/2025 1:58 PM CDT Oxygen Saturation 96% 01/06/2025 1:58 PM CDT Inhaled Oxygen Concentration - - Weight 80.9 kg (178 lb 6.4 oz) 01/06/2025 1:58 P M CDT Height 157.5 cm (5' 2 ) 01/06/2025 1:58 PM CDT Body Mass Index 32.63 01/06/2025 1:58 PM CDT Plan of Treatment Health Maintenance Due Date Last Done Comments Hepatitis B Screening 1977 Pneumococcal vaccine 65+ (1 of 2 - PCV) 1978 Zoster Vaccine (1 of 2) 2009 Covid-19 Vaccine (5 - 2023-2 5 season) 2024 08/01/2022, 09/27/2021, 01/04/2021, Additional history exists Colon Cancer Screening-Colonoscopy 12/16/2024 12/16/2021, 05/26/2016, 06/03/2011 Breast Cancer Screening-Mammogram 05/11/2025 05/11/2024, 05/04/2023, 10/24/2021, Additional history exists Hemoglobin A1C 07/03/2025 12/31/2024, 02/24, 12/05/2023, Additional history exists Dilated Eye Exam 10/27/2025 10/27/2024, , 11/20/2022, Additional history exists Albumin Creatinine Ratio, Urine 12/31/2025 12/31/2024, 12/05/2023, 10/15/2022, Additional history exists Lipid Panel 12/31/2025 12/31/2024, 02/24, 12/05/2023, Additional history exists eGFR 12/31/2025 12/31/2024, 02/24, 12/05/2023, Additional history exists Depression Screening 01/06/2026 01/06/2025, 01/06/2025, 12/28/2024, Additional history exists Fall Risk Assessment 01/06/2026 01/06/2025, 08/08/20 19 Foot Exam 01/06/2026 01/06/2025, 02/0 11/2023, 11/10/2022, Additional history exists Well Visit 65+ 01/06/2026 01/06/2025, 02/0 11/2023, 11/10/2022, Additional history exists Osteoporosis Screening-Bone Density Scan 02/02/2026 02/03/2024 Cervical Cancer Screening 10/28/2026 10/28/2021 DTaP/Tdap/Td Vaccine (3 - Td or Tdap) 09/09/2027 09/09/2017, 01/28/2007 Hepatitis C Screening Completed 09/09/2017 Colon Cancer Screening-CT Colonography Discontinued 12/16/2021, 05/26/2016, 06/03/2011 Colon Cancer Screening-DNA Stool Discontinued 12/16/2021, 05/26/2016, 06/03/2011 Colon Cancer Screening-FIT Discontinued 12/16, 05/26/2016, 06/03/2011 Colon Cancer Screening-Sigmoidoscopy Discontinued 12/16/2021, 05/26/2016, 06/03/2011 Influenza Vaccine Completed 08/09/2024, , 09/05/2022, Additional history exists Procedures Procedure Name Priority Date/Time Associated Diagnosis Comments XR KNEE LEFT 1 OR 2 VIEWS Schedule Routine, Read Routine (OP Routine) 01/02/2025 2:46 PM CDT Acute pain of left knee XR RIBS LEFT W PA CHEST Schedule Routine, Read Routine (OP Routine) 01/02/2025 2:46 PM CDT Left-sided chest wall pain EGFR Routine 12/31/2024 8:48 AM HUMAN SERVICES CASE MANAGER Type 2 diabetes mellitus with stage 1 chronic kidney disease, without long-term current use of insulin (HCC) Mixed hyperlipidemia Benign essential hypertension DIFFERENTIAL AUTO Routine 12/31/2024 8:4 8 AM HUMAN SERVICES CASE MANAGER Type 2 diabetes mellitus with stage 1 chronic kidney disease, without long-term current use of insulin (HCC) Mixed hyperlipidemia Benign essential hypertension VITAMIN D 25 HYDROXY Routine 12/31/2024 8:48 AM HUMAN SERVICES CASE MANAGER Vitamin D deficiency VITAMIN B12 Routine 12/31/2024 8:48 AM HUMAN SERVICES CASE MANAGER Type 2 diabetes mellitus with stage 1 chronic kidney disease, without long-term current use of insulin (HCC) THYROID FUNCTION CASCADE Routine 12/31/2024 8:48 AM HUMAN SERVICES CASE MANAGER Type 2 diabetes mellitus with stage 1 chronic kidney disease, without long-term current use of insulin (HCC) Mixed hyperlipidemia Benign essential hypertension LIPID PANEL Routine 12/31/2024 8:48 AM HUMAN SERVICES CASE MANAGER Type 2 diabetes mellitus with stage 1 chronic kidney disease, without long-term current use of insulin (HCC) Mixed hyperlipidemia Benign essential hypertension COMPREHENSIVE METABOLIC PANEL Routine 12/31/2024 8:48 AM HUMAN SERVICES CASE MANAGER Type 2 diabetes mellitus with stage 1 chronic kidney disease, without long-term current use of insulin (HCC) Mixed hyperlipidemia Benign essential hypertension CBC WITH AUTO DIFFERENTIAL Routine 12/31/2024 8:48 AM HUMAN SERVICES CASE MANAGER Type 2 diabetes mellitus with stage 1 chronic kidney disease, without long-term current use of insulin (HCC) Mixed hyperlipidemia Benign essential hypertension HEMOGLOBIN A1C Routine 12/31/2024 8:48 AM HUMAN SERVICES CASE MANAGER Type 2 diabetes mellitus with stage 1 chronic kidney disease, without long-term current use of insulin (HCC) Mixed hyperlipidemia Benign essential hypertension ALBUMIN CREATININE RATIO, URINE Routine 12/31/2024 8:48 AM HUMAN SERVICES CASE MANAGER Type 2 diabetes mellitus with stage 1 chronic kidney disease, without long-term current use of insulin (HCC) Chronic kidney disease, stage 1 Benign essential hypertension HM DIABETES EYE EXAM Routine 10/27/2024 SCREENING MAMMOGRAM BILATERAL W ANSON Schedule Routine, Read Routine (OP Routine) 05/11/2024 9:37 AM CDT Screening mammogram, encounter for DEXA AXIAL SKELETON BONE DENSITY 1 OR MORE SITES Schedule Routine, Read Routine (OP Routine) 02/03/2024 3:48 PM CDT Screening for osteoporosis Menopause COLONOSCOPY Routine 12/16/2021 THINPREP PAP WITH HPV Routine 10/28/2021 10:19 AM HUMAN SERVICES CASE MANAGER HEPATITIS C ANTIBODY Routine 09/09/2017 4:15 PM HUMAN SERVICES CASE MANAGER from Last 3 Months or Most Recently Relevant to Health Maintenance Results * XR Knee Left 1 or 2 Views (01/02/2025 2:46 PM CDT) Anatomical Region Laterality Modality Lower Extremities, Knee Left Computed Radiography 01/05/2025 1:54 PM CDT Narrative 01/05/2025 1:55 PM CDT EXAM DESCRIPTION: XR KNEE LEFT 1 OR 2 VIEWS; XR RIBS LEFT W PA CHEST 3 OR MORE VIEWS REASON FOR STUDY: L knee pain after fall Left chest pain following a fall Fell 11 days ago and is still having lt knee pain and lt mid rib pain. FINDINGS: Two views left knee, single-view chest in two views left ribs submitted with comparison 01/21/2021. Left ribs: No acute displaced left-sided rib fractures. Alignment is normal. No evidence of pulmonary contusion or pneumothorax. The right lung is clear. The heart size is within normal limits. Left knee: No acute fracture. Moderate medial predominant tricompartmental left knee osteoarthritis. Trace effusion. Alignment is normal. IMPRESSION: No acute displaced left-sided rib fractures. No acute left knee fracture. Moderate medial predominant tricompartmental left knee osteoarthritis. THIS IS AN ELECTRONICALLY VERIFIED FINAL REPORT 01/05/2025 1:55 PM - Electronically signed by Gary Russo M.D. MF: MARIAN Report ID: [id number] Reading Location: [id number] Procedure Note Gary Russo MD - 01/05/2025 EXAM DESCRIPTION: XR KNEE LEFT 1 OR 2 VIEWS; XR RIBS LEFT W PA CHEST 3 OR MORE VIEWS REASON FOR STUDY: L knee pain after fall Left chest pain following a fall Fell 11 days ago and is still having lt knee pain and lt mid rib pain. FINDINGS: Two views left knee, single-view chest in two views left ribs submitted with comparison 01/21/2021. Left ribs: No acute displaced left-sided rib fractures. Alignment is normal. No evidence of pulmonary contusion or pneumothorax. The right lung is clear. The heart size is within normal limits. Left knee: No acute fracture. Moderate medial predominant tricompartmental left knee osteoarthritis. Trace effusion. Alignment is normal. IMPRESSION: No acute displaced left-sided rib fractures. No acute left knee fracture. Moderate medial predominant tricompartmental left knee osteoarthritis. THIS IS AN ELECTRONICALLY VERIFIED FINAL REPORT 01/05/2025 1:55 PM - Electronically signed by Gary Russo M.D. MF: MARIAN Report ID: [id number] Reading Location: [id number] Leatha FRANK IMG XR PROCEDURES Final Result * XR Ribs Left W PA Chest 3 or More Views (01/02/2025 2:46 PM CDT) Anatomical Region Laterality Modality Rib, Chest Left Computed Radiogr aphy 01/05/2025 1:54 PM CDT Narrative 01/05/2025 1:55 PM CDT EXAM DESCRIPTION: XR KNEE LEFT 1 OR 2 VIEWS; XR RIBS LEFT W PA CHEST 3 OR MORE VIEWS REASON FOR STUDY: L knee pain after fall Left chest pain following a fall Fell 11 days ago and is still having lt knee pain and lt mid rib pain. FINDINGS: Two views left knee, single-view chest in two views left ribs submitted with comparison 01/21/2021. Left ribs: No acute displaced left-sided rib fractures. Alignment is normal. No evidence of pulmonary contusion or pneumothorax. The right lung is clear. The heart size is within normal limits. Left knee: No acute fracture. Moderate medial predominant tricompartmental left knee osteoarthritis. Trace effusion. Alignment is normal. IMPRESSION: No acute displaced left-sided rib fractures. No acute left knee fracture. Moderate medial predominant tricompartmental left knee osteoarthritis. THIS IS AN ELECTRONICALLY VERIFIED FINAL REPORT 01/05/2025 1:55 PM - Electronically signed by Gary Russo M.D. MF: MARIAN Report ID: [id number] Reading Location: [place] [address] Procedure Note Gary Russo MD - 01/05/2025 EXAM DESCRIPTION: XR KNEE LEFT 1 OR 2 VIEWS; XR RIBS LEFT W PA CHEST 3 OR MORE VIEWS REASON FOR STUDY: L knee pain after fall Left chest pain following a fall Fell 11 days ago and is still having lt knee pain and lt mid rib pain. FINDINGS: Two views left knee, single-view chest in two views left ribs submitted with comparison 01/21/2021. Left ribs: No acute displaced left-sided rib fractures. Alignment is normal. No evidence of pulmonary contusion or pneumothorax. The right lung is clear. The heart size is within normal limits. Left knee: No acute fracture. Moderate medial predominant tricompartmental left knee osteoarthritis. Trace effusion. Alignment is normal. IMPRESSION: No acute displaced left-sided rib fractures. No acute left knee fracture. Moderate medial predominant tricompartmental left knee osteoarthritis. THIS IS AN ELECTRONICALLY VERIFIED FINAL REPORT 01/05/2025 1:55 PM - Electronically signed by Gary Russo M.D. MF: MARIAN Report ID: [id number] Reading Location: [place] [address] us Enma Segura MD IMG XR PROCEDURES F inal Result * eGFR (12/31/2024 8:48 AM HUMAN SERVICES CASE MANAGER) eGFR >90 >=60 mL/min/1. 73 m2 Comment: [...] was last reviewed 2021. Testing performed by: [address] [address] Blood 12/31/2024 8:48 AM HUMAN SERVICES CASE MANAGER 12/31/2024 9:45 AM HUMAN SERVICES CASE MANAGER Shiloh FRANK LAB BLOOD ORDERABLES [facility] al Result [facility] Department [place] [address] * Differential, auto (12/31/2024 8:48 AM HUMAN SERVICES CASE MANAGER) Neutrophil abs 2.8 1.5 - 6.5 K/cumm Comment:Testing performed by : [address] [address] Imm gran abs 0.0 0.0 - 0.1 K/cumm UMESH Comment:Testing performed by : [address] [address] Lymphocyte abs 1.5 0.8 - 3.3 K/cumm UMESH Comment:Testing performed by : [address] [address] Monocyte abs 0.4 0.2 - 0.8 K/cumm UMESH Comment:Testing performed by : [address] [address] Eosinophil abs 0.1 0.0 - 0.5 K/cumm UMESH Comment:Testing performed by : [address] [address] Basophil abs 0.0 0.0 - 0.1 K/cumm UMESH Comment:Testing performed by : [address] [address] Neutrophil pct 57.2 % [facility] Comment: Interpretive Data Percent cell count reference ranges are not reported, since discordance with absolute values may lead to misinterpretation of CBC data. Current Interpretive Data was last revised on 2018. Testing performed by: [address] [address] Imm gran pct 0.4 % [facility] Comment: Interpretive Data Percent cell count reference ranges are not reported, since discordance with absolute values may lead to misinterpretation of CBC data. Current Interpretive Data was last revised on 2018. Testing performed by: [address] [address] Lymphocyte pct 30.8 % [facility] Comment: Interpretive Data Percent cell count reference ranges are not reported, since discordance with absolute values may lead to misinterpretation of CBC data. Current Interpretive Data was last revised on 2018. Testing performed by: [address] [address] Monocyte pct 9.0 % [facility] Comment: Interpretive Data Percent cell count reference ranges are not reported, since discordance with absolute values may lead to misinterpretation of CBC data. Current Interpretive Data was last revised on 2018. Testing performed by: [address] [address] Eosinophil pct 2.0 % [facility] Comment: Interpretive Data Percent cell count reference ranges are not reported, since discordance with absolute values may lead to misinterpretation of CBC data. Current Interpretive Data was last revised on 2018. Testing performed by: [address] [address] Basophil pct 0.6 % [facility] Comment: Interpretive Data Percent cell count reference ranges are not reported, since discordance with absolute values may lead to misinterpretation of CBC data. Current Interpretive Data was last revised on 2018. Testing performed by: [address] [place] [address] Blood 12/31/2024 8:48 AM HUMAN SERVICES CASE MANAGER 12/31/2024 9:45 AM HUMAN SERVICES CASE MANAGER Shiloh FRANK LAB BLOOD ORDERABLES Fin al Result Performing Organization Address [facility] de Phone Number [address] [address] * Thyroid Function Stephens (12/31/2024 8:48 AM HUMAN SERVICES CASE MANAGER) TSH 3.17 0.30 - 4.20 mcIUnit/mL Comment:Testing performed by : [address] [address] Blood 12/31/2024 8:48 AM HUMAN SERVICES CASE MANAGER 12/31/2024 9:45 AM HUMAN SERVICES CASE MANAGER Shiloh FRANK LAB BLOOD ORDERABLES Fin al Result Performing Organization Address [facility] Phone Number [address] [place] [address] * CBC with auto differential (12/31/2024 8:48 AM HUMAN SERVICES CASE MANAGER) Pathologist [facility] WBC 4.9 3.8 - 9.9 K/cumm Comment:Testing performed by : [address] [address] Hgb 14.7 11.9 - 15.5 g/dL UMESH CARTAGENA Comment:Testing performed by : [address] [address] Hct 44.5 35.6 - 45.5 % UM[facility] CARTAGENA Comment:Testing performed by : [address] [address] Plt 207 150 - 400 K/cumm UMESH CARTAGENA Comment:Testing performed by : [address] [address] MPV 9.5 9.1 - 12.3 fL UM[facility] CARTAGENA Comment:Testing performed by : [address] [address] RBC 4.64 3.90 - 5.20 M/cumm UMESH CARTAGENA Comment:Testing performed by : [address] [address] MCV 95.9 81.3 - 96.4 fL UM[facility] CARTAGENA Comment:Testing performed by : [address] [address] MCH 31.7 27.1 - 33.3 pg UM[facility] CARTAGENA Comment:Testing performed by : [address] [address] MCHC 33.0 32.3 - 35.7 g/dL UMESH Comment:Testing performed by : [address], [address] RDW CV 12.1 11.1 - 14.9 % UMESH Comment:Testing performed by : [address] [address] RDW SD 42.5 35.7 - 48.1 fL UMESH Comment:Testing performed by : [address] [address] NRBC abs 0.00 0.00 - 0.01 K/cumm UMESH Comment:Testing performed by : [address] [address] Blood 12/31/2024 8:48 AM HUMAN SERVICES CASE MANAGER 12/31/2024 9:45 AM HUMAN SERVICES CASE MANAGER Shiloh FRANK LAB BLOOD ORDERABLES Fin al Result [facility] [address] [facility] Department [place] [address] * Albumin Creatinine Ratio, Urine (12/31/2024 8:48 AM HUMAN SERVICES CASE MANAGER) Albumin Ur <12.0 mg/L Comment: Interpretive Data No reference range established. Current interpretive data was last revised 2019. Testing performed by: [address], [address] Creatinine Ur 57.9 mg/dL UMESH Comment: Interpretive Data No reference range established. Current interpretive data was last revised 2019. Testing performed by: [address] [address] Albumin Creatinine Ratio, Ur <21 1 - 29 mg/g UM[facility] CARTAGENA Comment:Testing performed by : [address] [address] Urine 12/31/2024 8:48 AM HUMAN SERVICES CASE MANAGER 12/31/2024 10:09 AM HUMAN SERVICES CASE MANAGER Shiloh FRANK LAB URINE ORDERABLES Fin al Result Performing Organization Address [facility]/ZIP Co de Phone Number [address] [place] [address] * Vitamin D 25 hydroxy (12/31/2024 8:48 AM HUMAN SERVICES CASE MANAGER) Vitamin D 25-OH 51.0 30.0 - 80.0 ng/mL Blood 12/31/2024 8:48 AM HUMAN SERVICES CASE MANAGER 12/31/2024 11:01 AM HUMAN SERVICES CASE MANAGER Shiloh FRANK LAB BLOOD ORDERABLES Fin al Result Performing Organization Address [facility] Co de Phone Number [address] [address] * (ABNORMAL) Hemoglobin A1c (12/31/2024 8:48 AM HUMAN SERVICES CASE MANAGER) Pathologist [facility] Hgb A1C 6.9(H) 4.0 - 5.6 % Comment:Testing performed by : [address] [address] Estimated Average Glucose 151 mg/dL UM[facility] CARTAGENA Comment: The ADA recommends reporting an estimated Average Glucose (eAG) with all Hemoglobin A1c results using the equation derived from a study of 507 normal and diabetic adults. Minority populations were underrepresented and children were not included. (Diabetes Care 31:7858-4425, 2008). The eAG is not equivalent to a fasting glucose. Testing performed by: [address] [address] Blood 12/31/2024 8:48 AM HUMAN SERVICES CASE MANAGER 12/31/2024 9:45 AM HUMAN SERVICES CASE MANAGER Shiloh FRANK LAB BLOOD ORDERABLES Fin al Result [address] [address] * Vitamin B12 (12/31/2024 8:48 AM HUMAN SERVICES CASE MANAGER) Vitamin B12 571 230 - 1,250 pg/mL Comment:Testing performed by : [address] [address] Blood 12/31/2024 8:48 AM HUMAN SERVICES CASE MANAGER 12/31/2024 9:45 AM HUMAN SERVICES CASE MANAGER Shiloh FRANK LAB BLOOD ORDERABLES Fin al Result Performing Organization Address City/[facility] Co de Phone Number [place] [phone] [place] [address] * (ABNORMAL) Lipid panel (12/31/2024 8:48 AM HUMAN SERVICES CASE MANAGER) Cholesterol 185 30 - 199 mg/dL Comment: Interpretive Data [...] last revised on 2018. Testing performed by: [address] [address] Triglycerides 198(H) <=149 mg/dL [facility] Comment: Interpretive Data Ages < or = [...] last revised on 2018. Testing performed by: [address] [address] HDL 53 >=40 mg/dL UMESH Comment: Interpretive Data Ages [...] last revised on 2018. Testing performed by: [address] [address] LDL, calculated 98 <=129 mg/dL UMESH Comment: Interpretive Data Ages < or = 19 years Acceptable: <110 mg/dL Borderline high: 110-129 mg/dL High: >or= 130 mg/dL Ages > or = 20 years Optimal: <100 mg/dL Near optimal: 100-129 mg/dL Borderline high: 130-159 mg/dL High: >160 mg/dL Calculated using the Tad LDL-C estimating equation. This equation was implemented on 2024. Prior to this date LDL-C was estimated using the Friedewald equation. Literature References: 1. Expert Panel on Integrated Guidelines for Cardiovascular Health and Risk Reduction in Children and Adolescents. Pediatrics 2011;128:S213 2. NCEP Expert Panel. Circulation 2004;110:227 3. Tad Barrientos al. PUMA Cardiol. 2020 February 23;5(5):540-548. doi: 10.1001/jamacardio.2020.0013 Current Interpretive Data was last revised on 2024. Testing performed by: [address] [address] Non-HDL Cholesterol 132 mg/dL UM[facility] CARTAGENA Comment: Interpretive Data Ages < or = [...] last revised on 2018. Testing performed by: [address] [address] Chol/HDL ratio 3 UMESH CARTAGENA Comment:Testing performed by : [address] [address] Blood 12/31/2024 8:48 AM HUMAN SERVICES CASE MANAGER 12/31/2024 9:45 AM HUMAN SERVICES CASE MANAGER us Shiloh FRANK LAB BLOOD ORDERABLES Fin al Result UM[facility] [address] [facility] Department [place] [address] * (ABNORMAL) Comprehensive metabolic panel (12/31/2024 8:48 AM HUMAN SERVICES CASE MANAGER) [facility] Sodium 137 135 - 145 mmol/L Comment:Testing performed by : [address] [address] Potassium, pl 4.5 3.3 - 4.9 mmol/L UMESH CARTAGENA Comment: Hemolyzed; Potassium value may be falsely elevated by as much as 1.0 mmol/L. Suggest redraw and reanalysis. Testing performed by: [address] [address] Chloride 100 97 - 110 mmol/L UMESH CARTAGENA Comment:Testing performed by : [address] [address] CO2 26 22 - 32 mmol/L UMESH Comment:Testing performed by : [address] [address] Anion gap 11 2 - 15 mmol/L UMESH Comment:Testing performed by : [address], [place]., [address] BUN 17 6 - 25 mg/dL UMESH Comment:Testing performed by : [address], [place]., [address] Creatinine 0.49(L) 0.60 - 1.10 mg/dL UMESH Comment:Testing performed by : [address], [place]., [address] Glucose 119 70 - 199 mg/dL [facility] Comment: Interpretive Data Fasting glucose >/= 126 mg/dl is diagnostic for diabetes. Fasting is defined as no caloric intake for at least 8 hours. Fasting glucose between 100 mg/dl to 125 mg/dl is diagnostic of prediabetes. In a patient with classic symptoms of hyperglycemia or hyperglycemic crisis, a random glucose >/= 200 mg/dl is diagnostic for diabetes. In the absence of unequivocal hyperglycemia, results should be confirmed by repeat testing. The classification and Diagnosis of Diabetes Diabetes Care 2021; 46: S19-S40. Current interpretive data was last revised 2022. Testing performed by: [address] [address] Calcium 9.5 8.5 - 10.3 mg/dL [facility] Comment:Testing performed by : [address] [address] Bilirubin, total 0.3 0.1 - 1.2 mg/dL [facility] Comment:Testing performed by : [address] [address] Protein, pl 7.5 6.5 - 8.5 g/dL UM[facility] Comment:Testing performed by : [address] [address] Albumin 4.5 3.5 - 5.0 g/dL UM[facility] Comment:Testing performed by : [address] [address] Alk phos 56 40 - 130 Units/L [facility] CARTAGENA Comment:Testing performed by : [facility], [address] [place] [address]., [address] ALT 13 7 - 45 Units/L UMESH CARTAGENA Comment:Testing performed by : [address] [address] AST 23 10 - 45 Units/L UM[facility] CARTAGENA Comment: Hemolyzed; result may be falsely elevated Testing performed by: [address] [address] Blood 12/31/2024 8:48 AM HUMAN SERVICES CASE MANAGER 12/31/2024 9:45 AM HUMAN SERVICES CASE MANAGER Shiloh FRANK LAB BLOOD ORDERABLES Fin al Result [facility] [address] [facility] Department [place] [address] * DIABETES EYE EXAM (10/27/2024) SCRIBED DIABETIC [...] age 40, based on guidelines of the [place] [employer] (ACR Practice Parameter for the Performance of Screening and Diagnostic Mammography) and [place] [employer]. For women [...] IMG MAMMO PROCEDURES Fi nal Result * Dexa Axial Skeleton Bone Density 1 or 2 Site (02/03/2024 3:48 PM CDT) Anatomical Region Laterality Modality Body N/A Mammography 02/03/2024 9:50 PM CDT Narrative 02/03/2024 9:53 PM CDT EXAM DESCRIPTION: DEXA AXIAL SKELETON BONE DENSITY 1 OR MORE SITES REASON FOR STUDY: 64 y/o year old F with given history of: screening Postmenopausal Director Of Services/Model: Elias Borges Urzeda A (S/N [id number]) CLINICAL INFORMATION: Current height: 61.5 inches Maximum [...] Gary Russo M.D. MF: MARIAN Report ID: [id number] Reading Location: [address] Note Gary Russo MD - 02/03/2024 EXAM DESCRIPTION: DEXA AXIAL SKELETON BONE DENSITY 1 OR MORE SITES REASON FOR STUDY: 64 y/o year old F with given history of: screening Postmenopausal Director Of Services/Model: Elias Borges Urzeda A (S/N [id number]) CLINICAL INFORMATION: Current height: 61.5 inches Maximum [...] Gary Russo M.D. MF: MARIAN Report ID: [id number] Reading Location: [place] [address] Leatha FRANK IMG DXA PROCEDURES Final Resul t * Colonoscopy (12/16/2021) Anatomical Region Laterality Modality Other Historical Provider MD ENDOSCOPY PROCEDURES Digna l Result * ThinPrep Pap with HPV (10/28/2021 10:19 AM HUMAN SERVICES CASE MANAGER) Pap test 10/28/2021 10:1 9 AM HUMAN SERVICES CASE MANAGER 10/29/2021 10:19 AM HUMAN SERVICES CASE MANAGER Narrative 10/31/2021 11:55 AM HUMAN SERVICES CASE MANAGER [facility] Department of Pathology [address] [place] [address] Final Report with Addendum Note to Patients: [...] the details. Patient Name: SHANTE BROWNLEE Address: [address] [place] [address] Gender: F : 1960 (Age: 61) Service: Laboratory Location: [facility] #: [id number] Patient Type: [facility] SPECIMEN Taken: 10/28/2021 Received: 10/29/2021 Accessioned:: 10/30/2021 Reported: 10/31/2021 Physician(s): Joanie Sevilla M.D. [facility] Diagnosis: Source of Specimen: Imaged Thinprep Pap Test plus HPV - Director Traffic And Planning Cytologic Material Specimen Adequacy: - Satisfactory for [...] Imaged Thinprep Pap Test plus HPV - Director Traffic And Planning Cytologic Material Clinical History: Menstrual History: Post-menopausal [...] determined by the Surgical Pathology Department at [facility] as part of an ongoing quality checker program and in compliance with federally mandated [...] characteristics determined by the Surgical Pathology Department [facility]. It has not been cleared or approved by the U. S. Food and Drug Administration. Joanie Sevilla MD LAB CYTOLOGY ORDERABLES Final Result * Hepatitis C antibody (09/09/2017 4:15 PM HUMAN SERVICES CASE MANAGER) Hep C Ab NONREACT NONREACTIVE 09/09/2017 6:52 PM HUMAN SERVICES CASE MANAGER [facility] HISTORICAL RESULTS Comment: Siemens OuroborosaurXP using CRISTI (chemiluminescent immunoassay) technology. NONREACTIVE: Antibodies [...] to Hepatitis C detected. 09/09/2017 4:15 PM HUMAN SERVICES CASE MANAGER 09/09/2017 4:26 PM HUMAN SERVICES CASE MANAGER Leatha FRANK LAB MICROBIOLOGY - GENERAL ORD ERABLES Final Result [facility] HISTORICAL RESULTS from Last 3 Months or Most Recently Relevant to Health Maintenance Insurance MEDICARE [employer] Care Teams Pnp Relationship Specialty Start Date End Date Leatha Ansari PA [address] [place] [address] PCP - General Family Medicine 03/16/20 Beto Potts MD [address] [place], [place] [address] Consulting Physician Family Medicine 01/11/20 Beto Potts MD [address] [place] [address] Consulting Physician Family Medicine 02/15/20 Beto Potts MD [address] [place] [address] Consulting Physician Family Medicine 03/16/20 Samir Garcia PA [address] [facility] [place] [address] Physician Senior Test Engineer Orthopedic Surgery 03/22/21
--- OUTSIDE RECORDS SUMMARY | 2025-01-12 14:39 | XMS_ITS | Encounter Summary ---
Author Organization [facility] Facility Care Team Providers Care Housekeeper And Laundry Assistant Name Role Phone Leatha Ansari Primary Care Provider [phone] Beto Potts MD Unavailable + [phone] Don Mary DO Primary Care Provider [phone] Beto Potts MD Primary Care Provid er Leatha Ansari Primary Care Provider [phone] Don Mary DO Primary Care Provider [phone] Leatha Ansari Primary Care Provider [phone] Beto Potts MD Unavailable + [phone] Don Mary DO Primary Care Provider [phone] Leatha Ansari Primary Care Provider [phone] Beto Potts MD Unavailable + [phone] Don Mary DO Primary Care Provider [phone] Leatha Ansari Primary Care Provider [phone] Beto Potts MD Unavailable + [phone] Don Mary DO Primary Care Provider [phone] Don Mary DO Primary Care Provider [phone] Leatha Ansari Primary Care Provider [phone] Samir Garcia Unavailable [phone] Encounter Details Date Type Department Care Team (Latest Contact Info) Description 02/08/2016 Orders Only [facility] CLINCONV ProviderAyde MD [address] [place] [address] Social History Tobacco Use Types Packs/Day Years Used Date Smoking Tobacco: Never Assessed Comments Unknown Sex and Gender Information Value Date Recorded Sex Assigned at Not on file Legal Sex Female 2:18 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 BUSINESS Gender Identity Not on file Sexual Orientation [...] on filedocumented in this encounter Care Teams Housekeeper And Laundry Assistant Relationship Specialty Start Date End Date Leatha Ansari PA [address] [place], [place] [id number] PCP - General 12/13/18 09/23/19 Don Mary DO [address] [place] [address] PCP - General 09/24/19 11/01/19 Beto Potts MD [address] [place], [place] [id number] PCP - General Family Medicine 11/02/19 11/06/19 Leatha Ansari PA [address] [place] [address] PCP - General Family Medicine 11/23/19 12/23/19 Don Mary, [address] [place] [address] PCP - General 12/24/19 12/25/19 Leatha Ansari PA [address] [place] [address] PCP - General 12/26/19 01/15/20 Don Mary, [address] [place] [address] PCP - General 02/10/20 02/14/20 Leatha Ansari PA [address] [place] [address] PCP - General Family Medicine 02/15/20 02/21/20 Don Mary, [address] [place] [address] PCP - General 02/23/20 03/15/20 Leatha Ansari PA [address] [facility], [place] [address] PCP - General Family Medicine 03/16/20 Don Mary, [address] [place] [address] PCP - General 01/16/20 02/09/20 Don Mary DO [address] [place] [address] PCP - General 02/22/20 02/22/20 Leatha Ansari PA [address] [place] [address] PCP - General 11/07/19 11/22/19 Beto Potts MD [address] [place] [address] Consulting Physician Family Medicine 03/29/19 11/01/19 Beto Potts MD [address] [place] [address] Consulting Physician Family Medicine 01/11/20 Beto Potts MD [address] [place] [address] Consulting Physician Family Medicine 02/15/20 Beto Potts MD [address] [place] [address] Consulting Physician Family Medicine 03/16/20 Samir Garcia PA [address] [place] [address] [place] [address] Physician Clinical Care Coordinator Orthopedic Surgery 03/22/21 documented as of this encounter
--- OUTSIDE RECORDS SUMMARY | 2025-01-12 14:39 | XMS_ITS | Encounter Summary ---
Author Organization [facility] Facility Care Team Providers Care Group Exercise Manager Name Role Phone Leatha Ansari Primary Care Provider +[phone] Beto Potts MD Unavailable + [phone] Don Mary DO Primary Care Provider +[phone] Bteo Potts MD Primary Care Provid er Leatha Ansari Primary Care Provider +[phone] Don Mary DO Primary Care Provider +[phone] Leatha Ansari Primary Care Provider +[phone] Beto Potts MD Unavailable + [phone] Don Mary DO Primary Care Provider +[phone] Leatha Ansari Primary Care Provider +[phone] Beto Potts MD Unavailable + [phone] Don Mary DO Primary Care Provider +[phone] Leatha Ansari Primary Care Provider +[phone] Beto Potts MD Unavailable + [phone] Don Mary DO Primary Care Provider +[phone] Don Mary DO Primary Care Provider +[phone] Leatha Ansari Primary Care Provider +[phone] Samir Garcia Unavailable +[phone] Encounter Details Date Type Department Care Team (Latest Contact Info) Description 01/11/2016 Orders Only [facility] ProviderAyde MD [address] [place] [address] Social History Tobacco Use Types Packs/Day Years Used Date Smoking Tobacco: Never Assessed Comments Unknown Sex and Gender Information Value Date Recorded Sex Assigned at Not on file Legal Sex Female 2:18 PM 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 ENGINEER Gender Identity Not on file Sexual Orientation [...] on filedocumented in this encounter Care Teams Group Exercise Manager Relationship Specialty Start Date End Date Leatha Ansari PA [address] [place], [place] [id number] PCP - General 12/13/18 09/23/19 Don Mary DO [address] [place] [address] PCP - General 09/24/19 11/01/19 Beto Potts MD [address] [place], [place] [id number] PCP - General Family Medicine 11/02/19 11/06/19 Leatha Ansari PA [address] [place] [address] PCP - General Family Medicine 11/23/19 12/23/19 Don Mary, [address] [place] [address] PCP - General 12/24/19 12/25/19 Leatha Ansari PA [address] [place] [address] PCP - General 12/26/19 01/15/20 Don Mary, [address] [place] [address] PCP - General 02/10/20 02/14/20 Leatha Ansari PA [address] [place] [address] PCP - General Family Medicine 02/15/20 02/21/20 Don Mary, [address] [place] [address] PCP - General 02/23/20 03/15/20 Leatha Ansari PA [address] [facility], [place] [address] PCP - General Family Medicine 03/16/20 Don Mary, [address] [place] [address] PCP - General 01/16/20 02/09/20 Don Mary DO [address] [place] [address] PCP - General 02/22/20 02/22/20 Leatha Ansari PA [address] [place] [address] PCP - General 11/07/19 11/22/19 Beto Potts MD [address] [place] [address] Consulting Physician Family Medicine 03/29/19 11/01/19 Beto Potts MD [address] [place] [address] Consulting Physician Family Medicine 01/11/20 Beto Potts MD [address] [place] [address] Consulting Physician Family Medicine 02/15/20 Beto Potts MD [address] [place] [address] Consulting Physician Family Medicine 03/16/20 Samir Garcia PA [address] [place] [address] [place] [address] Physician Food Preparation Kitchen Aide Orthopedic Surgery 03/22/21 documented as of this encounter
--- OUTSIDE RECORDS SUMMARY | 2025-01-12 14:39 | XMS_ITS | Encounter Summary ---
Author Organization [facility] Healthcare Address [address] [place] [address] Care Team Providers Care Hydrological Technical Officer Name Role Phone Beto Potts MD Unavailable + [phone] Beto Potts MD Unavailable + [phone] Leatha Ansari Primary Care Provider +[phone] Beto Potts MD Unavailable + [phone] Samir Garcia Unavailable +[phone] Reason for Visit * Reason Onset Date Comments Chest Injury 01/02/2025 Knee Injury 01/02/2025 Encounter Details Date Type Department Care Team (Late st Contact Info) Description 01/02/2025 Nurse Triage [facility] Medical Group Family Medicine [address] [address] Leatha Ansari PA [address] [address] Social History Tobacco Use Types Packs/Day Years [...] on file 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 She has been alternating 800 mg of ibuprofen every 6 hours with 1000 mg of tylenol. She is getting xray today. She has medicare wellness appt on 01/06 and does not want to be seen by another provider * Telephone Encounter - Leatha Ansari PA - 01/02/2025 1:12 PM CDT Sometimes with an acute injury a fracture will not show on the initial x-ray which is why they recommend repeating the x-ray if symptoms have not improved. I would recommend repeating the x-ray for her knee and chest area. We can not order an MRI without patient. They are certain parameters insurance companies require before we can order an MRI. What is patient taking for pain and discomfort? Seeif we can get her in for same-day slot tomorrow or Thursday * Telephone Encounter - Kellie Francios - 01/02/2025 12:44 PM CDT Pt is calling office following up from a 7am conversation she had with [facility] at the [facility], she explained a bit of her disappointment that she is expecting a call within 2 hours as she was told by access [facility] and it has been past noon she has not heard from our office. Pls. Advise. * Telephone Encounter - Yasmin Woodson RN - 01/02/2025 7:23 AM CDT Fell over 10 days ago and was seen at and had chest xray and knee xray. Pt was seen in office on12/28/24 and has a written order for repeat of those xrays if pain did not subside. Pt has not completed those xrays yet. Pt is calling to report she remains to have the L knee pain and stiffness-can't hardly bend and constant L breast ache near ribs. Onset over 10 days. No fevers. No dizziness or weakness. No SOB or cough. No redness, swelling or large bruising to chest or knee. Pt refuses all mention of ED. She is wanting different orders placed like an MRI? Or something else. She is wanting a message sent. Message routed for determination, pt call back [phone] Continue self care of heating pad, ice pack. * Telephone Encounter - Yasmin Woodson RN - 01/02/2025 7:20 AM CDT Reason for Disposition [1] MODERATE pain (e.g., interferes with normal activities) AND [2] high-risk adult (e.g., age > 60 years, osteoporosis, chronic steroid use) ??? [1] MODERATE pain (e.g., interferes with normal activities, limping) AND [2] high-risk adult (e.g., age > 60 years, osteoporosis, chronic steroid use) Protocols used: Chest Orhykp-Finol-FF, Knee Urseia-Gtpsw-RE * Telephone Encounter - Yasmin Woodson RN - 01/02/2025 7:16 AM CDT Regarding: Severe pain ----- Message from Magalys Huddleston sent at 01/02/2025 7:16 AM CDT ----- Re: pain medicationn been taking 1000 mg of Tylenol or Ibuprofen, fell 10 days ago and pain in leftquadrant of rib and left knee, would like to make sure MRI is scheduled documented in this encounter Plan of Treatment Not on file documented as of this encounter Visit Diagnoses Not on filedocumented in this encounter Care Teams Hydrological Technical Officer Relationship Specialty Start Date End Date Leatha Ansari PA [address] [place] [address] PCP - General Family Medicine 03/16/20 Beto Potts MD [address] [place] [address] Consulting Physician Family Medicine 01/11/20 Beto Potts MD [address] [place] [address] Consulting Physician Family Medicine 02/15/20 Beto Potts MD [address] [place] [address] Consulting Physician Family Medicine 03/16/20 Samir Garcia PA [address] [place] [address] [place] [address] Physician Heavy Equipment Field Mechanic Orthopedic Surgery 03/22/21 documented as of this encounter
--- OUTSIDE RECORDS SUMMARY | 2025-01-12 14:39 | XMS_ITS | Continuity of Care Document ---
Author Name [facility] Organization [facility] Care Team Providers Care Staffing And Scheduling Coordinator Name Role Phone [facility] Unavailable Unavailable Medications Combined list of outpatient [...] drug Unknown Active 4 rash per pt [id number] q Unknown Organization Immunizations Combined list of available immunizations from the Department of Defense and Veterans Affairs facilities. Immunization Series Date Given Administered By Site Reaction Lot Number CVX Code Drug High School Principal Status Comments Source tuberculin purified protein derivative 2006 zzLef t Arm [id number] [facility] ed Patient Tolerance : Negative Ambulat ory Pharmac y Procedures Combined list of: 1) Procedures from Department of Veterans Affairs facilities going back up to thelast 18 months, not all [place] non-surgical procedures are included; 2) All procedures [...] of Defense and Veterans Affairs (VA).VA Functional Kensal Measurement (FIM) Scale: 1 = Total Assistance (Subject = 0% +), 2 = Maximal Assistance (Subject = 25% +), 3 = Moderate Assistance (Subject = 50% +), 4 = Minimal Assistance (Subject = 75% +), 5 = Supervision, 6 = Modified Kensal (Device), 7 = Complete Kensal (Timely, Safely). Assessment Date/Time Source Assessment Type Assessment Skill Assessment Score Assessment Details No data available for this section
--- OUTSIDE RECORDS SUMMARY | 2025-01-12 14:39 | XMS_ITS | Encounter Summary ---
Author Organization [facility] Facility Care Team Providers Care Independent Agent Music Education Name Role Phone Leatha Ansari Primary Care Provider +[phone] Beto Potts MD Unavailable + [phone] Don Mary DO Primary Care Provider +[phone] Beto Potts MD Primary Care Provid er Leatha Ansari Primary Care Provider +[phone] Don Mary DO Primary Care Provider [phone] Leatha Ansari Primary Care Provider +[phone] Beto Potts MD Unavailable + [phone] Don Mary DO Primary Care Provider +[phone] Leatha Ansari Primary Care Provider +[phone] Beto Potts MD Unavailable + [phone] Don Mary DO Primary Care Provider +[phone] Leatha Ansari Primary Care Provider +[phone] Beto Potts MD Unavailable + [phone] Don Mary DO Primary Care Provider +[phone] Don Mary DO Primary Care Provider +[phone] Leatha Ansari Primary Care Provider +[phone] Samir Garcia Unavailable +[phone] Encounter Details Date Type Department Care Team (Latest Contact Info) Description 11/15/2018 Orders Only [facility]IN[facility] ProvideryAde MD [address] [place] [address] Social History Tobacco Use Types Packs/Day Years Used Date Smoking Tobacco: Never Assessed Comments Unknown Sex and Gender Information Value Date Recorded Sex Assigned at Not on file 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 Historical Provider Final Res ult documented in this encounter Visit Diagnoses Not on filedocumented in this encounter Care Teams Independent Agent Music Education Relationship Specialty Start Date End Date Leatha Ansari PA [address] [place], [place] [id number] PCP - General 12/13/18 09/23/19 Don Mary DO [address] [place] [address] PCP - General 09/24/19 11/01/19 Beto Potts MD [address] [place], [place] [address] PCP - General Family Medicine 11/02/19 11/06/19 Leatha Ansari PA [address] [place] [address] PCP - General Family Medicine 11/23/19 12/23/19 Don Mary, [address] [place] [address] PCP - General 12/24/19 12/25/19 Leatha Ansari PA [address] [place] [address] PCP - General 12/26/19 01/15/20 Don Mary, [address] [place] [address] PCP - General 02/10/20 02/14/20 Leatha Ansari PA [address] [place] [address] PCP - General Family Medicine 02/15/20 02/21/20 Don Mary, [address] [place] [address] PCP - General 02/23/20 03/15/20 Leatha Ansari PA [address] [place] [address] PCP - General Family Medicine 03/16/20 Don Mary DO [address] [place] [address] PCP - General 01/16/20 02/09/20 Don Mary DO [address] [place] [address] PCP - General 02/22/20 02/22/20 Leatha Ansari PA [address] [place] [address] PCP - General 11/07/19 11/22/19 Beto Potts MD [address] [place] [address] Consulting Physician Family Medicine 03/29/19 11/01/19 Beto Potts MD [address] [place] [address] Consulting Physician Family Medicine 01/11/20 Beto Potts MD [address] [place] [address] Consulting Physician Family Medicine 02/15/20 Beto Potts MD [address] [place] [address] Consulting Physician Family Medicine 03/16/20 Samir Garcia PA [address] [place] [address] [place] [address] Physician Swimming Teacher Orthopedic Surgery 03/22/21 documented as of this encounter
--- OUTSIDE RECORDS SUMMARY | 2025-01-12 14:39 | XMS_ITS | Encounter Summary ---
Author Organization [facility] Facility Care Team Providers Care Packer Sausage And Wiener Name Role Phone Leatha Ansari Primary Care Provider +[phone] Beto Potts MD Unavailable + [phone] Don Mary DO Primary Care Provider +[phone] Beto Potts MD Primary Care Provid er Leatha Ansari Primary Care Provider +[phone] Don Mary DO Primary Care Provider +[phone] Leatha Ansari Primary Care Provider +[phone] Beto Potts MD Unavailable + [phone] Don Mary DO Primary Care Provider +[phone] Leatha Ansari Primary Care Provider +[phone] Beto Potts MD Unavailable + [phone] Don Mary DO Primary Care Provider +[phone] Leatha Ansari Primary Care Provider +[phone] Beto Potts MD Unavailable + [phone] Don Mary DO Primary Care Provider +[phone] Don Mary DO Primary Care Provider +[phone] Leatha Ansari Primary Care Provider +[phone] Samir Garcia Unavailable +[phone] Encounter Details Date Type Department Care Team (Latest Contact Info) Description 02/11/2016 Orders Only [facility]INCON[facility] ProviderAyde MD [address] [place] [address] Social History Tobacco Use Types Packs/Day Years Used Date Smoking Tobacco: Never Assessed Comments Unknown Sex and Gender Information Value Date Recorded Sex Assigned at Not on file 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 Gender Identity Not on file Sexual Orientation [...] on filedocumented in this encounter Care Teams Packer Sausage And Wiener Relationship Specialty Start Date End Date Leatha Ansari PA [address] [place], [place] [id number] PCP - General 12/13/18 09/23/19 Don Mray DO [address] [place] [address] PCP - General 09/24/19 11/01/19 Beto Potts MD [address] [place], [place] [address] PCP - General Family Medicine 11/02/19 11/06/19 Leatha Ansari PA [address] [place] [address] PCP - General Family Medicine 11/23/19 12/23/19 Don Mary, [address] [place] [address] PCP - General 12/24/19 12/25/19 Leatha Ansari PA [address] [place] [address] PCP - General 12/26/19 01/15/20 Don Mary, [address] [place] [address] PCP - General 02/10/20 02/14/20 Leatha Ansari PA [address] [place] [address] PCP - General Family Medicine 02/15/20 02/21/20 Don Mary, [address] [place] [address] PCP - General 02/23/20 03/15/20 Leatha Ansari PA [address] [facility], [place] [address] PCP - General Family Medicine 03/16/20 Don Mary, [address] [facility] [address] PCP - General 01/16/20 02/09/20 Don Mary DO [address] [place] [address] PCP - General 02/22/20 02/22/20 Leatha Ansari PA [address] [place] [address] PCP - General 11/07/19 11/22/19 Beto Potts MD [address] [place] [address] Consulting Physician Family Medicine 03/29/19 11/01/19 Beto Potts MD [address] [place] [address] Consulting Physician Family Medicine 01/11/20 Beto Potts MD [address] [place] [address] Consulting Physician Family Medicine 02/15/20 Beto Potts MD [address] [place] [address] Consulting Physician Family Medicine 03/16/20 Samir Garcia PA [address] [place] [address] [place] [address] Physician Line Maintainer Orthopedic Surgery 03/22/21 documented as of this encounter
--- OUTSIDE RECORDS SUMMARY | 2025-01-12 14:39 | XMS_ITS | Encounter Summary ---
Author Organization [facility] Medical Group Address [address] [address] Care Team Providers Care Brim And Crown Presser Name Role Phone Leatha Ansari Primary Care Provider +[phone] Beto Potts MD Unavailable + [phone] Don Mary DO Primary Care Provider +[phone] Beto Potts MD Primary Care Provid er Leatha Ansari Primary Care Provider +[phone] Don Mary DO Primary Care Provider +[phone] Leatha Ansari Primary Care Provider +[phone] Beto Potts MD Unavailable + [phone] Don Mary DO Primary Care Provider +[phone] Leatha Ansari Primary Care Provider +[phone] Beto Potts MD Unavailable + [phone] Don Mary DO Primary Care Provider +[phone] Leatha Ansari Primary Care Provider +[phone] Beto Potts MD Unavailable + [phone] Don Mary DO Primary Care Provider +[phone] Don Mary DO Primary Care Provider +[phone] Leatha Ansari Primary Care Provider +[phone] Samir Garcia Unavailable +[phone] Encounter Details Date Type Department Care Team (Late st Contact Info) Description 06/03/2011 Orders Only [facility] Health Information Management [address] [place] [address] Leatha Ansari PA [address] [place], [place] [id number] Social History Tobacco Use Types Packs/Day Years Used Date Smoking Tobacco: Never Assessed Comments Unknown Sex and Gender Information Value Date Recorded Sex Assigned at Not on file Legal Sex Female 2:18 PM CODING SUPPORT SPECIALIST Gender Identity Not on file Sexual Orientation [...] on filedocumented in this encounter Care Teams Brim And Crown Presser Relationship Specialty Start Date End Date Leatha Ansari PA [address] [place] [address] PCP - General 12/13/18 09/23/19 Don Mary DO [address] [place] [address] PCP - General 09/24/19 11/01/19 Beto Potts MD [address] [place], [place] [id number] PCP - General Family Medicine 11/02/19 11/06/19 Leatha Ansari PA [address] [place] [address] PCP - General Family Medicine 11/23/19 12/23/19 Don Mary DO [address] [place] [address] PCP - General 12/24/19 12/25/19 Leatha Ansari PA [address] [place] [address] PCP - General 12/26/19 01/15/20 Don Mary, [address] [place] [address] PCP - General 02/10/20 02/14/20 Leatha Ansari PA [address] [place] [address] PCP - General Family Medicine 02/15/20 02/21/20 Don Mary, [address] [place] [address] PCP - General 02/23/20 03/15/20 Leatha Ansari PA [address] [place] [address] PCP - General Family Medicine 03/16/20 Don Mary DO [address] [place] [address] PCP - General 01/16/20 02/09/20 Don Mary DO [address] [place] [address] PCP - General 02/22/20 02/22/20 Leatha Ansari PA [address] [place] [address] PCP - General 11/07/19 11/22/19 Beto Potts MD [address] [place] [address] Consulting Physician Family Medicine 03/29/19 11/01/19 Beto Potts MD [address] [place] [address] Consulting Physician Family Medicine 01/11/20 Beto Potts MD [address] [place] [address] Consulting Physician Family Medicine 02/15/20 Beto Potts MD [address] [place] [address] Consulting Physician Family Medicine 03/16/20 Samir Garcia PA [address] [place] [address] [place] [address] Physician Concrete Floor Installer Orthopedic Surgery 03/22/21 documented as of this encounter
--- OUTSIDE RECORDS SUMMARY | 2025-01-12 14:39 | XMS_ITS | Encounter Summary ---
Author Organization [facility] Facility Care Team Providers Care Prepper Name Role Phone Leatha Ansari Primary Care Provider +[phone] Beto Potts MD Unavailable + [phone] Don Mary DO Primary Care Provider +[phone] Beto Potts MD Primary Care Provid er Leatha Ansari Primary Care Provider +[phone] Don Mary DO Primary Care Provider +[phone] Leatha Ansari Primary Care Provider +[phone] Beto Potts MD Unavailable + [phone] Don Mary DO Primary Care Provider +[phone] Leatha Ansari Primary Care Provider +[phone] Beto Potts MD Unavailable + [phone] Don Mary DO Primary Care Provider +[phone] Leatha Ansari Primary Care Provider +[phone] Beto Potts MD Unavailable + [phone] Don Mary DO Primary Care Provider +[phone] Don Mary DO Primary Care Provider +[phone] Leatha Ansari Primary Care Provider +[phone] Samir Garcia Unavailable +[phone] Encounter Details Date Type Department Care Team (Latest Contact Info) Description 12/24/2016 Orders Only [facility] CLINCON[facility] ProviderAyde MD [address] [place] [address] Social History Tobacco Use Types Packs/Day Years Used Date Smoking Tobacco: Never Assessed Comments Unknown Sex and Gender Information Value Date Recorded Sex Assigned at Not on file 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 Historical Provider [facility] ROBBIE MADSEN Final Result documented in this encounter Visit Diagnoses Not on filedocumented in this encounter Care Teams Prepper Relationship Specialty Start Date End Date Leatha Ansari PA [address] [place], [place] [id number] PCP - General 12/13/18 09/23/19 Don Mary DO [address] [place], [place] [address] PCP - General 09/24/19 11/01/19 Beto Potts MD [address] [place], [place] [address] PCP - General Family Medicine 11/02/19 11/06/19 Leatha Ansari PA [address] [place] [address] PCP - General Family Medicine 11/23/19 12/23/19 Dno Mary, [address] [place] [address] PCP - General 12/24/19 12/25/19 Leatha Ansari PA [address] [place] [address] PCP - General 12/26/19 01/15/20 Don Mary DO [address] [place] [address] PCP - General 02/10/20 02/14/20 Leatha Ansari PA [address] [place] [address] PCP - General Family Medicine 02/15/20 02/21/20 Don Mary DO [address] [place] [address] PCP - General 02/23/20 03/15/20 Leatha Ansari PA [address] [place] [address] PCP - General Family Medicine 03/16/20 Don Mary DO [address] [facility], [place] [address] PCP - General 01/16/20 02/09/20 Don Mary DO [address] [place] [address] PCP - General 02/22/20 02/22/20 Leatha Ansari PA [address] [place] [address] PCP - General 11/07/19 11/22/19 Beto Potts MD [address] [place] [address] Consulting Physician Family Medicine 03/29/19 11/01/19 Beto Potts MD [address] [place] [address] Consulting Physician Family Medicine 01/11/20 Beto Potts MD [address] [place] [address] Consulting Physician Family Medicine 02/15/20 Beto Potts MD [address] [place] [address] Consulting Physician Family Medicine 03/16/20 Samir Garcia PA [address] [place] [address] [place] [address] Physician Cable Television Program Director Orthopedic Surgery 03/22/21 documented as of this encounter
--- OUTSIDE RECORDS SUMMARY | 2025-01-12 14:39 | XMS_ITS | Encounter Summary ---
Author Organization [facility] Healthcare Address [address] [place] [address] Care Team Providers Care Tin Tie Machine Operator Automatic Name Role Phone Beto Potts MD Unavailable + [phone] Beto Potts MD Unavailable + [phone] Leatha Ansari Primary Care Provider +[phone] Beto Potts MD Unavailable + [phone] Samir Garcia Unavailable +[phone] Encounter Details Date Type Department Care Team (Late st Contact Info) Description 01/04/2025 Results Follow-Up [facility] Family Medicine [address] [id number] Leatha Ansari PA [address] [place] [id number] Social History Tobacco Use Types Packs/Day [...] on file 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 documented in this encounter Plan of Treatment Not on file documented as of this encounter Visit Diagnoses Not on filedocumented in this encounter Care Teams Tin Tie Machine Operator Automatic Relationship Specialty Start Date End Date Leatha Ansari PA [address] [place] [address] PCP - General Family Medicine 03/16/20 Beto Potts MD [address] [place] [address] Consulting Physician Family Medicine 01/11/20 Beto Potts MD [address] [place] [address] Consulting Physician Family Medicine 02/15/20 Beto Potts MD [address] [place] [address] Consulting Physician Family Medicine 03/16/20 Samir Garcia PA [address] [place] [address] [address] [place] [address] Physician Market Gardener Orthopedic Surgery 03/22/21 documented as of this encounter
--- OUTSIDE RECORDS SUMMARY | 2025-01-12 14:39 | XMS_ITS | Encounter Summary ---
Author Organization [facility] Facility Care Team Providers Care Government Teacher Name Role Phone Leatha Ansari Primary Care Provider [phone] Beto Potts MD Unavailable + [phone] Don Mary DO Primary Care Provider +[phone] Beto Potts MD Primary Care Provid er Leatha Ansari Primary Care Provider +[phone] Don Mary DO Primary Care Provider +[phone] Leatha Ansari Primary Care Provider +[phone] Beto Potts MD Unavailable + [phone] Don Mary DO Primary Care Provider +[phone] Leatha Ansari Primary Care Provider +[phone] Beto Potts MD Unavailable + [phone] Don Mary DO Primary Care Provider +[phone] Leatha Ansari Primary Care Provider +[phone] Beto Potts MD Unavailable + [phone] Don Mary DO Primary Care Provider +[phone] Don Mary DO Primary Care Provider +[phone] Leatha Ansari Primary Care Provider +[phone] Samir Garcia Unavailable [phone] Encounter Details Date Type Department Care Team (Latest Contact Info) Description 04/16/2018 Orders Only [facility]IN[facility] ProviderAyde MD [address] [place] [address] Social History Tobacco Use Types Packs/Day Years Used Date Smoking Tobacco: Never Assessed Comments Unknown Sex and Gender Information Value Date Recorded Sex Assigned at Not on file 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 Gender Identity Not on file Sexual [...] on filedocumented in this encounter Care Teams Government Teacher Relationship Specialty Start Date End Date Leatha Ansari PA [address] [place] [address] PCP - General 12/13/18 09/23/19 Don Mary DO [address] [place] [address] PCP - General 09/24/19 11/01/19 Beto Potts MD [address] [place], [place] [id number] PCP - General Family Medicine 11/02/19 11/06/19 Leatha Ansari PA [address] [place] [address] PCP - General Family Medicine 11/23/19 12/23/19 Don Mary, [address] [place] [address] PCP - General 12/24/19 12/25/19 Leatha Ansari PA [address] [place] [address] PCP - General 12/26/19 01/15/20 Don Mary, [address] [place] [address] PCP - General 02/10/20 02/14/20 Leatha Ansari PA [address] [place] [address] PCP - General Family Medicine 02/15/20 02/21/20 Don Mary, [address] [place] [address] PCP - General 02/23/20 03/15/20 Leatha Ansari PA [address] [facility], [place] [address] PCP - General Family Medicine 03/16/20 Don Mary, [address] [place] [address] PCP - General 01/16/20 02/09/20 Don Mary DO [address] [place] [address] PCP - General 02/22/20 02/22/20 Leatha Ansari PA [address] [place] [address] PCP - General 11/07/19 11/22/19 Beto Potts MD [address] [place] [address] Consulting Physician Family Medicine 03/29/19 11/01/19 Beto Potts MD [address] [place] [address] Consulting Physician Family Medicine 01/11/20 Beto Potts MD [address] [place] [address] Consulting Physician Family Medicine 02/15/20 Beto Potts MD [address] [place] [address] Consulting Physician Family Medicine 03/16/20 Samir Garcia PA [address] [place] [address] [place] [address] Physician Slip Cover Cutter Orthopedic Surgery 03/22/21 documented as of this encounter
--- OUTSIDE RECORDS SUMMARY | 2025-01-12 14:39 | XMS_ITS | Encounter Summary ---
Author Organization [facility] Facility Care Team Providers Care Wet Pour Supervisor Name Role Phone Leatha Ansari Primary Care Provider [phone] Beto Potts MD Unavailable + [phone] Don Mary DO Primary Care Provider +[phone] Beto Potts MD Primary Care Provid er Leatha Ansari Primary Care Provider +[phone] Don Mary DO Primary Care Provider +[phone] Leatha Ansari Primary Care Provider +[phone] Beto Potts MD Unavailable + [phone] Don Mary DO Primary Care Provider +[phone] Leatha Ansari Primary Care Provider +[phone] Beto Potts MD Unavailable + [phone] Don Mary DO Primary Care Provider +[phone] Leatha Ansari Primary Care Provider [phone] Beto Potts MD Unavailable + [phone] Don Mary DO Primary Care Provider +[phone] Don Mary DO Primary Care Provider +[phone] Leatha Ansari Primary Care Provider +[phone] Samir Garcia Unavailable [phone] Encounter Details Date Type Department Care Team (Latest Contact Info) Description 05/26/2016 Orders Only [facility]IN[facility] ProviderAyde MD [address] [place] [address] Social History Tobacco Use Types Packs/Day Years Used Date Smoking Tobacco: Never Assessed Comments Unknown Sex and Gender Information Value Date Recorded Sex Assigned at Not on file 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 Gender Identity Not on file Sexual [...] on filedocumented in this encounter Care Teams Wet Pour Supervisor Relationship Specialty Start Date End Date Leatha Ansari PA [address] [place], [place] [id number] PCP - General 12/13/18 09/23/19 Don Mary DO [address] [place], [place] [address] PCP - General 09/24/19 11/01/19 Beto Potts MD [address] [place], [place] [id number] PCP - General Family Medicine 11/02/19 11/06/19 Leatha Ansari PA [address] [place] [address] PCP - General Family Medicine 11/23/19 12/23/19 Don Mary, [address] [place] [address] PCP - General 12/24/19 12/25/19 Leatha Ansari PA [address] [place] [address] PCP - General 12/26/19 01/15/20 Don Mary, [address] [place] [address] PCP - General 02/10/20 02/14/20 Leatha Ansari PA [address] [place] [address] PCP - General Family Medicine 02/15/20 02/21/20 Don Mary, [address] [place] [address] PCP - General 02/23/20 03/15/20 Leatha Ansari PA [address] [facility], [place] [address] PCP - General Family Medicine 03/16/20 Don Mary, [address] [place] [address] PCP - General 01/16/20 02/09/20 Don Mary DO [address] [place] [address] PCP - General 02/22/20 02/22/20 Leatha Ansari PA [address] [place] [address] PCP - General 11/07/19 11/22/19 Beto Potts MD [address] [place] [address] Consulting Physician Family Medicine 03/29/19 11/01/19 Beto Potts MD [address] [place] [address] Consulting Physician Family Medicine 01/11/20 Beto Potts MD [address] [place] [address] Consulting Physician Family Medicine 02/15/20 Beto Potts MD [address] [place] [address] Consulting Physician Family Medicine 03/16/20 Samir Garcia PA [address] [place] [address] [place] [address] Physician Quarrying Specialist Orthopedic Surgery 03/22/21 documented as of this encounter
--- OUTSIDE RECORDS SUMMARY | 2025-01-12 14:39 | XMS_ITS | Referral Summary ---
Author Organization [address] Address [address] [place] [phone] Care Team Providers Care Residential Support Worker Name Role Phone Beto Potts MD Unavailable + [phone] Beto Potts MD Unavailable + [phone] Leatha Ansari Primary Care Provider [phone] Beto Potts MD Unavailable + [phone] Samir Garcia Unavailable [phone] Encounters Date Type Department Care Team Description 01/09/2025 Results Follow-Up [facility] [address] [place] [phone] Tiffanie Tinoco PA 01/06/2025 2:00 PM CDT Office Visit [facility] [address] [place] [phone] Leatha Ansari PA Medicare annual wellness visit, initial (Primary Dx); Risk for falls; Health maintenance examination; Type 2 diabetes mellitus with stage 1 chronic kidney disease, without long-term current use of insulin (HCC); Low bone mass; Chronic kidney disease, stage 1; Restless legs syndrome; Mixed hyperlipidemia; Benign essential hypertension; Overactive bladder; Screening for colon cancer; Acute pain of left knee 01/04/2025 Results Follow-Up [address] [phone] Leatha Ansari PA 01/02/2025 2:24 PM CDT - 01/02/2025 11:59 PM CDT Hospital Encounter [facility] [address] [place] [phone] Left-sided chest wall pain; Acute pain of left knee Discharge Disposition: Discharge to home or self care 01/02/2025 Orders Only [address] [phone] Leatha Ansari PA Acute pain of left knee (Primary Dx) 01/02/2025 Nurse Triage [address] [phone] Leatha Ansari PA 12/31/2024 7:50 AM CLERK GENERAL Lab [facility] [address] [place] [phone] Type 2 diabetes mellitus with stage 1 chronic kidney disease, without long-term current use of insulin (HCC); Chronic kidney disease, stage 1; Benign essential hypertension; Mixed hyperlipidemia; Vitamin D deficiency 12/28/2024 3:15 PM CLERK GENERAL Office Visit [address] [phone] Enma Segura MD Left-sided chest wall pain (Primary Dx); Acute pain of left knee; History of recent fall; Class 1 obesity due to excess calories with serious comorbidity and body mass index (BMI) of 32.0 to 32.9 in adult 12/28/2024 Nurse Triage [address] [phone] Leatha Ansari PA 11/22/[address] [phone] Leatha Ansari PA Additional Services Or Orders from Last 3 Months Allergies Active Allergy Reactions Criticality Noted Date Comments Sulfa (Sulfonamide Antibiotics) Other (See comments),Hives Medium 11/23/2017 Medications blood-glucose meter kit 2 (two) times a week 018 Active OMEGA-3 FATTY ACIDS-EPA ORAL 1,200 mg evaluation advisor before breakfast 011 Active CHOLECALCIFEROL, VITAMIN D3, ORAL 5,000 Units every morning 011 Active biotin 1 mg capsule evaluation advisor before breakfast 019 Active blood glucose diagnostic (FreeStyle Lite Strips) strip Testing bid, due to hyperglycemia 100 each 3 020 Active fluorouraciL (EFUDEX) 5 % cream 023 Active fluticasone propionate (FLONASE) 50 mcg/actuation nasal sprayIndications: Postnasal drip SHAKE LIQUID AND USE 2 SPRAYS IN EACH NOSTRIL DAILY 48 g 023 Active ammonium lactate (AMLACTIN) 12 % cream [...] without long-term current use of insulin (HCC) Inject 0.5 mL (1.5 mg total) under [...] 03/23/2020 Assessment & Plan (11/27/2023 3:26 PM CLERK GENERAL): Educated patient on healthy diet/exercise plan. Exercise 150min-300min per week of moderate intensity. Diet: good, healthy protein (eggs, nuts, peanut butter, chicken, fish, turkey, less pork/beef), lots of vegetables, less carbohydrates and less sugar. Assessment & Plan (11/10/2022 12:05 PM CLERK GENERAL): Uncontrolled. Goal of BMI is less than 30. Educated patient on healthy diet/exercise plan. Exercise 150min-300min per week of moderate intensity. Diet: good, healthy protein (eggs, nuts, peanut butter, chicken, fish, turkey, less pork/beef), lots of vegetables, less carbohydrates and less sugar. Patient has lost 3 lb Assessment & Plan (11/22/2021 7:51 AM CLERK GENERAL): Uncontrolled. Goal of BMI is less than [...] ortho Assessment & Plan (09/12/2019 10:10 AM CLERK GENERAL): Currently the nausea and constipation far worse. [...] exam:11/14/24 Assessment & Plan (11/27/2023 1:57 PM CLERK GENERAL): PMH: 11/27/23 Last pap: 10/28/21 Last mammogram:04/2023 Last dexa: ordered Last colonoscopy/cologuard: 11/2021 repeat 2024 Last Hep C:08/2017 Last hep b series: completed in past Last tdap:09/09/2017 Last Prevnar/pneumovax: due pt declined 02/2018, pt declined 02/2020, Last Shingrix:get pharmacy Last eye exam:11/23/23 Assessment & Plan (11/10/2022 11:16 AM CLERK GENERAL): PMH: 11/10/2022 Last pap: due, referral to dining room coordinator Last mammogram:11/2018, 05/25/2020, 09/2021 Last dexa: Last colonoscopy/cologuard: 05/2016, 11/2021 repeat 2024 Last Hep C:08/2017 Last hep b series: completed in past Last tdap:09/09/2017 Last Prevnar/pneumovax: due pt declined 02/2018, pt declined 02/2020, Last Shingrix:due, info given ,[place] Last eye exam:10/28/2018, 08/16/2020 , 11/11/2022 Assessment & Plan (08/05/2021 1:44 PM CDT): PMH: 08/05/2021 Last pap: due, referral to dining room coordinator Last mammogram:11/2018, 05/25/2020 Last dexa: Last colonoscopy/cologuard: [...] lisinopril Assessment & Plan (11/27/2023 3:25 PM CLERK GENERAL): Stable, continue current meds. Assessment & Plan (11/10/2022 12:05 PM CLERK GENERAL): Stable, continue current meds Assessment & Plan (11/22/2021 7:50 AM CLERK GENERAL): Stable, continue current meds. Follow-up in February [...] feet Assessment & Plan (11/27/2023 3:24 PM CLERK GENERAL): Stable, order labs. Foot exam completed today. Continue current meds Assessment & Plan (11/10/2022 12:07 PM CLERK GENERAL): Uncontrolled. A1c at 7.3. Talked with patient about options. She wanted to continue working on weight loss, exercise, and dietary changes. Patient would like to repeat labs in February. If A1c is not at goal will talk about adding another medication Patient has eye exam scheduled this week. Foot exam completed today Assessment & Plan (11/22/2021 7:52 AM CLERK GENERAL): Uncontrolled. Goal of A1c is less than [...] labs Assessment & Plan (11/27/2023 3:25 PM CLERK GENERAL): Stable, monitor labs Assessment & Plan (11/10/2022 12:05 PM CLERK GENERAL): Stable, continue current meds Assessment & Plan (11/22/2021 7:51 AM CLERK GENERAL): Stable, continue current treatment plan. Check urine microalbumin in February Assessment & Plan (08/05/2021 1:59 PM CDT): Stable, continue to monitor with labs Assessment & Plan (01/28/2021 9:57 AM CDT): Stable Assessment & Plan (03/23/2020 9:47 AM CDT): Stable Assessment & Plan (01/16/2020 8:48 AM CDT): Stable Assessment & Plan (08/08/2019 12:55 PM CDT): Well controlled skilled nursing current use of oral hypoglycemic drug 12/24/2016 Overactive bladder 09/17/2016 Assessment & Plan (01/06/2025 2:48 PM CDT): Chronic, stable, continue VESIcare Assessment & Plan (11/27/2023 3:24 PM CLERK GENERAL): Stable, continue VESIcare Assessment & Plan (11/10/2022 12:06 PM CLERK GENERAL): Stable Assessment & Plan (11/22/2021 7:51 AM CLERK GENERAL): Stable, continue meds Assessment & Plan (08/05/2021 2:00 PM CDT): Stable, continue meds Assessment & Plan (03/23/2020 9:48 AM CDT): Stable continue meds Assessment & Plan (08/08/2019 12:56 PM CDT): Stable continue meds Allergic rhinitis due to pollen 09/17/2016 Assessment & Plan (11/27/2023 3:25 PM CLERK GENERAL): Stable, continue meds Assessment & Plan (11/10/2022 12:05 PM CLERK GENERAL): Stable, continue current meds Assessment & Plan (08/05/2021 1:59 PM CDT): Stable, p.r.n. meds Assessment & Plan (03/23/2020 9:47 AM CDT): Stable with p.r.n. meds Assessment & Plan (08/08/2019 12:55 PM CDT): Stable Vitamin D deficiency 02/04/2016 Assessment & Plan (11/27/2023 3:24 PM CLERK GENERAL): Stable, continue vitamin-D Assessment & Plan (11/10/2022 12:07 PM CLERK GENERAL): Stable, continue Assessment & Plan (08/05/2021 2:01 PM CDT): Stable, continue vitamin Assessment & Plan (03/23/2020 9:49 AM CDT): Stable continue vitamin-D Assessment & Plan (01/16/2020 8:49 AM CDT): Stable continue vitamin-D Assessment & Plan (08/08/2019 12:56 PM CDT): Stable continue vitamin-D Restless legs syndrome 02/04/2016 Assessment & Plan (01/06/2025 2:48 PM CDT): Chronic, stable, Assessment & Plan (11/27/2023 3:24 PM CLERK GENERAL): Stable Assessment & Plan (11/10/2022 12:06 PM CLERK GENERAL): Stable Assessment & Plan (08/05/2021 2:00 PM CDT): Stable, continue meds Assessment & Plan (03/23/2020 9:49 AM CDT): Stable Assessment & Plan (08/08/2019 12:56 PM CDT): Stable continue meds Other specified hypothyroidism 02/04/2016 Assessment & Plan (11/27/2023 3:24 PM CLERK GENERAL): Stable, continue meds, order labs Assessment & Plan (11/10/2022 12:06 PM CLERK GENERAL): Stable, continue meds Assessment & Plan (08/05/2021 [...] 02/04/2016 Assessment & Plan (11/27/2023 3:24 PM CLERK GENERAL): Unchanged Assessment & Plan (11/10/2022 12:06 PM CLERK GENERAL): Unchanged Assessment & Plan (08/05/2021 2:00 PM CDT): Stable no CPAP machine at this time Assessment & Plan (03/23/2020 9:48 AM CDT): Stable Assessment & Plan (08/08/2019 12:56 PM CDT): Stable not on CPAP Mixed hyperlipidemia 01/11/2016 Overview (03/30/2019): Failed lipitor Assessment & Plan (01/06/2025 2:48 PM CDT): Chronic, stable, continue simvastatin and Zetia Assessment & Plan (11/27/2023 3:24 PM CLERK GENERAL): Stable, continue Zocor Assessment & Plan (11/10/2022 12:06 PM CLERK GENERAL): Uncontrolled. Patient's numbers are slightly up. We talked about possibly increasing meds patient wanted to try to improve her numbers on her own. Repeat labs in February. If heart risk is not less than 7.5% we will consider increasing simvastatin to 40 mg Assessment & Plan (11/22/2021 7:51 AM CLERK GENERAL): Patient will check labs in February, continue [...] movement Assessment & Plan (11/27/2023 3:25 PM CLERK GENERAL): Stable, no meds at this time Assessment & Plan (11/10/2022 12:06 PM CLERK GENERAL): Stable Assessment & Plan (08/05/2021 2:00 PM CDT): Stable, continue meds Assessment & Plan (03/23/2020 9:49 AM CDT): Stable Assessment & Plan (08/08/2019 12:56 PM CDT): Stable continue meds Fatty liver Overview (03/30/2019): biopsy showed CHANEL Assessment & Plan (11/27/2023 3:25 PM CLERK GENERAL): Continue working on weight loss, monitor liver function Assessment & Plan (11/10/2022 12:05 PM CLERK GENERAL): Working on weight loss, monitoring labs Assessment & Plan (11/22/2021 7:51 AM CLERK GENERAL): Stable, ALT and AST continue to improve. [...] therapy. Assessment & Plan (12/19/2019 3:25 PM CLERK GENERAL): Patient making slow progress. 92 of flexion now. Achy after physical therapy. Wants to continue with therapy. Follow up in 6 weeks for repeat evaluation. Assessment & Plan (11/21/2019 1:10 PM CLERK GENERAL): Begin Medrol Dosepak. Begin meloxicam 15 mg once daily. Continue Flexeril. Continue with aggressive physical therapy,GILDA bracing and CPM. Follow-up in 4 weeks for repeat evaluation. Assessment & Plan (10/07/2019 12:34 PM CLERK GENERAL): We discussed the risks, benefits and alternatives. [...] on file Legal Sex Female 2:18 PM CLERK GENERAL Gender Identity Not on file Sexual Orientation [...] 01/06/2025 1:58 PM CDT Plan of Treatment Not on file Procedures Procedure Name Priority Date/Time Associated Diagnosis Comments XR KNEE LEFT 1 OR 2 VIEWS Schedule Routine, Read Routine (OP Routine) 01/02/2025 2:46 PM CDT Acute pain of left knee XR RIBS LEFT W PA CHEST Schedule Routine, Read Routine (OP Routine) 01/02/2025 2:46 PM CDT Left-sided chest wall pain EGFR Routine 12/31/2024 8:48 AM CLERK GENERAL Type 2 diabetes mellitus with stage 1 chronic kidney disease, without long-term current use of insulin (HCC) Mixed hyperlipidemia Benign essential hypertension DIFFERENTIAL AUTO Routine 12/31/2024 8:4 8 AM CLERK GENERAL Type 2 diabetes mellitus with stage 1 chronic kidney disease, without long-term current use of insulin (HCC) Mixed hyperlipidemia Benign essential hypertension VITAMIN D 25 HYDROXY Routine 12/31/2024 8:48 AM CLERK GENERAL Vitamin D deficiency VITAMIN B12 Routine 12/31/2024 8:48 AM CLERK GENERAL Type 2 diabetes mellitus with stage 1 chronic kidney disease, without long-term current use of insulin (HCC) THYROID FUNCTION CASCADE Routine 12/31/2024 8:48 AM CLERK GENERAL Type 2 diabetes mellitus with stage 1 chronic kidney disease, without long-term current use of insulin (HCC) Mixed hyperlipidemia Benign essential hypertension LIPID PANEL Routine 12/31/2024 8:48 AM CLERK GENERAL Type 2 diabetes mellitus with stage 1 chronic kidney disease, without long-term current use of insulin (HCC) Mixed hyperlipidemia Benign essential hypertension COMPREHENSIVE METABOLIC PANEL Routine 12/31/2024 8:48 AM CLERK GENERAL Type 2 diabetes mellitus with stage 1 chronic kidney disease, without long-term current use of insulin (HCC) Mixed hyperlipidemia Benign essential hypertension CBC WITH AUTO DIFFERENTIAL Routine 12/31/2024 8:48 AM CLERK GENERAL Type 2 diabetes mellitus with stage 1 chronic kidney disease, without long-term current use of insulin (HCC) Mixed hyperlipidemia Benign essential hypertension HEMOGLOBIN A1C Routine 12/31/2024 8:48 AM CLERK GENERAL Type 2 diabetes mellitus with stage 1 chronic kidney disease, without long-term current use of insulin (HCC) Mixed hyperlipidemia Benign essential hypertension ALBUMIN CREATININE RATIO, URINE Routine 12/31/2024 8:48 AM CLERK GENERAL Type 2 diabetes mellitus with stage 1 chronic kidney disease, without long-term current use of insulin (HCC) Chronic kidney disease, stage 1 Benign essential hypertension DIABETES EYE EXAM Routine 10/27/2024 SCREENING MAMMOGRAM BILATERAL W ANSON Schedule Routine, Read Routine (OP Routine) 05/11/2024 9:37 AM CDT Screening mammogram, encounter for DEXA AXIAL SKELETON BONE DENSITY 1 OR MORE SITES Schedule Routine, Read Routine (OP Routine) 02/03/2024 3:48 PM CDT Screening for osteoporosis Menopause COLONOSCOPY Routine 12/16/2021 THINPREP PAP WITH HPV Routine 10/28/2021 10:19 AM CLERK GENERAL HEPATITIS C ANTIBODY Routine 09/09/2017 4:15 PM CLERK GENERAL from Last 3 Months or Most Recently [...] Gary Russo M.D. MF: MARIAN Report ID: [id number] Reading Location: [id number] Procedure Note Gary Russo MD - 01/05/2025 [...] 1:55 PM - Electronically signed by Gary FONSECA: MARIAN Report ID: [id number] Reading Location: [id number] Leatha FRANK IMG XR PROCEDURES Final Result [...] Gary Russo M.D. MF: MARIAN Report ID: [id number] Reading Location: [id number] Procedure Note Gary Russo MD - 01/05/2025 [...] Gary Russo M.D. MF: MARIAN Report ID: [id number] Reading Location: [place] [address] Enma Segura MD IMG XR PROCEDURES F inal Result * eGFR (12/31/2024 8:48 AM CLERK GENERAL) eGFR >90 >=60 mL/min/1. 73 m2 Comment: [...] was last reviewed 2021. Testing performed by: [address] [id number] Blood 12/31/2024 8:48 AM CLERK GENERAL 12/31/2024 9:45 AM CLERK GENERAL us Shiloh FRANK LAB BLOOD ORDERABLES Fin al Result [facility] [address] [facility] [place] [address] * Differential, auto (12/31/2024 8:48 AM CLERK GENERAL) Neutrophil abs 2.8 1.5 - 6.5 K/cumm Comment:Testing performed by : [address] [address] Imm gran abs 0.0 0.0 - 0.1 K/cumm [facility] Comment:Testing performed by : [address] [address] Lymphocyte abs 1.5 0.8 - 3.3 K/cumm [facility] Comment:Testing performed by : [address] [address] Monocyte abs 0.4 0.2 - 0.8 K/cumm [facility] Comment:Testing performed by : [address] [address] Eosinophil abs 0.1 0.0 - 0.5 K/cumm [facility] Comment:Testing performed by : [address] [address] Basophil abs 0.0 0.0 - 0.1 K/cumm [facility] Comment:Testing performed by : [address] [address] Neutrophil pct 57.2 % [facility] Comment: Interpretive Data Percent cell count reference ranges are not reported, since discordance with absolute values may lead to misinterpretation of CBC data. Current Interpretive Data was last revised on 2018. Testing performed by: [address] [address] Imm gran pct 0.4 % [facility] Comment: Interpretive Data Percent cell count reference ranges are not reported, since discordance with absolute values may lead to misinterpretation of CBC data. Current Interpretive Data was last revised on 2018. Testing performed by: [address] [address] Lymphocyte pct 30.8 % [facility] Comment: Interpretive Data Percent cell count reference ranges are not reported, since discordance with absolute values may lead to misinterpretation of CBC data. Current Interpretive Data was last revised on 2018. Testing performed by: [address] [address] Monocyte pct 9.0 % [facility] Comment: Interpretive Data Percent cell count reference ranges are not reported, since discordance with absolute values may lead to misinterpretation of CBC data. Current Interpretive Data was last revised on 2018. Testing performed by: [address] [address] Eosinophil pct 2.0 % [facility] Comment: Interpretive Data Percent cell count reference ranges are not reported, since discordance with absolute values may lead to misinterpretation of CBC data. Current Interpretive Data was last revised on 2018. Testing performed by: [address] [address] Basophil pct 0.6 % [facility] Comment: Interpretive Data Percent cell count reference ranges are not reported, since discordance with absolute values may lead to misinterpretation of CBC data. Current Interpretive Data was last revised on 2018. Testing performed by: [address] [address] Blood 12/31/2024 8:48 AM CLERK GENERAL 12/31/2024 9:45 AM CLERK GENERAL us Shiloh FRANK LAB BLOOD ORDERABLES Fin al Result [facility] Department [place] [address] * Thyroid Function Dana (12/31/2024 8:48 AM CLERK GENERAL) [facility] TSH 3.17 0.30 - 4.20 mcIUnit/mL Comment:Testing performed by : [address] [address] Blood 12/31/2024 8:48 AM CLERK GENERAL 12/31/2024 9:45 AM CLERK GENERAL us Shiloh FRANK LAB BLOOD ORDERABLES Fin al Result [facility] [address] [place] [address] * CBC with auto differential (12/31/2024 8:48 AM CLERK GENERAL) [facility] WBC 4.9 3.8 - 9.9 K/cumm Comment:Testing performed by : [address] [address] Hgb 14.7 11.9 - 15.5 g/dL [facility] Comment:Testing performed by : [address] [address] Hct 44.5 35.6 - 45.5 % [facility] Comment:Testing performed by : [address] [address] Plt 207 150 - 400 K/cumm [facility] Comment:Testing performed by : [address] [address] MPV 9.5 9.1 - 12.3 fL [facility] Comment:Testing performed by : [address] [address] RBC 4.64 3.90 - 5.20 M/cumm [facility] [place] Comment:Testing performed by : [address] [address] MCV 95.9 81.3 - 96.4 fL [facility] Comment:Testing performed by : [address] [address] MCH 31.7 27.1 - 33.3 pg [facility] [place] Comment:Testing performed by : [address] [address] MCHC 33.0 32.3 - 35.7 g/dL [facility] [place] Comment:Testing performed by : [address] [address] RDW CV 12.1 11.1 - 14.9 % [facility] [place] Comment:Testing performed by : [address] [address] RDW SD 42.5 35.7 - 48.1 fL [facility] [place] Comment:Testing performed by : [address] [address] NRBC abs 0.00 0.00 - 0.01 K/cumm [facility] [place] Comment:Testing performed by : [address] [address] Blood 12/31/2024 8:48 AM CLERK GENERAL 12/31/2024 9:45 AM CLERK GENERAL us Shiloh FRANK LAB BLOOD ORDERABLES Fin al Result [facility] [address] [facility] Department [place] [address] * Albumin Creatinine Ratio, Urine (12/31/2024 8:48 AM CLERK GENERAL) Albumin Ur <12.0 mg/L Comment: Interpretive Data No reference range established. Current interpretive data was last revised 2019. Testing performed by: [address] [address] Creatinine Ur 57.9 mg/dL [facility] [place] Comment: Interpretive Data No reference range established. Current interpretive data was last revised 2019. Testing performed by: [address] [address] Albumin Creatinine Ratio, Ur <21 1 - 29 mg/g [facility] [place] Comment:Testing performed by : [address] [address] Urine 12/31/2024 8:48 AM CLERK GENERAL 12/31/2024 10:09 AM CLERK GENERAL Shiloh FRANK LAB URINE ORDERABLES Fin al Result Performing Organization Address [facility] Co de Phone Number [facility] [address] [facility] [place] [address] * Vitamin D 25 hydroxy (12/31/2024 8:48 AM CLERK GENERAL) Pathologist [facility] Vitamin D 25-OH 51.0 30.0 - 80.0 ng/mL Blood 12/31/2024 8:48 AM CLERK GENERAL 12/31/2024 11:01 AM CLERK GENERAL Shiloh FRANK LAB BLOOD ORDERABLES Fin al Result Performing Organization Address [facility] Phone Number [address] [address] * (ABNORMAL) Hemoglobin A1c (12/31/2024 8:48 AM CLERK GENERAL) Pathologist [facility] Hgb A1C 6.9(H) 4.0 - 5.6 % Comment:Testing performed by : [address] [address] Estimated Average Glucose 151 mg/dL [facility] Comment: The ADA recommends reporting an estimated Average Glucose (eAG) with all Hemoglobin A1c results using the equation derived from a study of 507 normal and diabetic adults. Minority populations were underrepresented and children were not included. (Diabetes Care 31:3909-0832, 2008). The eAG is not equivalent to a fasting glucose. Testing performed by: [address] [address] Blood 12/31/2024 8:48 AM CLERK GENERAL 12/31/2024 9:45 AM CLERK GENERAL Shiloh FRANK LAB BLOOD ORDERABLES Fin al Result Performing Organization Address [facility] de Phone Number [place] [phone] [facility] [place] [address] * Vitamin B12 (12/31/2024 8:48 AM CLERK GENERAL) Vitamin B12 571 230 - 1,250 pg/mL Comment:Testing performed by : [facility], [address] [place] [address]., [id number] Blood 12/31/2024 8:48 AM CLERK GENERAL 12/31/2024 9:45 AM CLERK GENERAL us Shiloh FRANK LAB BLOOD ORDERABLES Fin al Result [facility] [address] [facility] Department [place] [address] * (ABNORMAL) Lipid panel (12/31/2024 8:48 AM CLERK GENERAL) Cholesterol 185 30 - 199 mg/dL Comment: [...] last revised on 2018. Testing performed by: [address] [address] Triglycerides 198(H) <=149 mg/dL [facility] Comment: Interpretive Data Ages [...] last revised on 2018. Testing performed by: [address] [address] HDL 53 >=40 mg/dL [facility] Comment: Interpretive [...] last revised on 2018. Testing performed by: [address] [address] LDL, calculated 98 <=129 mg/dL [facility] Comment: [...] last revised on 2024. Testing performed by: [address] [address] Non-HDL Cholesterol 132 mg/dL [facility] Comment: Interpretive Data Ages < [...] last revised on 2018. Testing performed by: [address] [address] Chol/HDL ratio 3 [facility] Comment:Testing performed by : [address] [address] Blood 12/31/2024 8:48 AM CLERK GENERAL 12/31/2024 9:45 AM CLERK GENERAL us Shiloh FRANK LAB BLOOD ORDERABLES Fin al Result [facility] [address] [facility] Department [place] [address] * (ABNORMAL) Comprehensive metabolic panel (12/31/2024 8:48 AM CLERK GENERAL) Sodium 137 135 - 145 mmol/L Comment:Testing performed by : [address] [address] Potassium, pl 4.5 3.3 - 4.9 mmol/L [facility] Comment: Hemolyzed; Potassium value may be falsely elevated by as much as 1.0 mmol/L. Suggest redraw and reanalysis. Testing performed by: [address] [address] Chloride 100 97 - 110 mmol/L [facility] Comment:Testing performed by : [address] [address] CO2 26 22 - 32 mmol/L [facility] Comment:Testing performed by : [address] [address] Anion gap 11 2 - 15 mmol/L [facility] Comment:Testing performed by : [address] [address] BUN 17 6 - 25 mg/dL UMESH Comment:Testing performed by : [address] [address] Creatinine 0.49(L) 0.60 - 1.10 mg/dL UMESH Comment:Testing performed by : [address] [address] Glucose 119 70 - 199 mg/dL UMESH Comment: Interpretive Data Fasting glucose >/= 126 [...] was last revised 2022. Testing performed by: [address] [address] Calcium 9.5 8.5 - 10.3 mg/dL UMESH Comment:Testing performed by : [address] [address] Bilirubin, total 0.3 0.1 - 1.2 mg/dL UMESH Comment:Testing performed by : [address] [address] Protein, pl 7.5 6.5 - 8.5 g/dL UMESH Comment:Testing performed by : [address] [address] Albumin 4.5 3.5 - 5.0 g/dL UMESH Comment:Testing performed by : [address] [address] Alk phos 56 40 - 130 Units/L UMESH Comment:Testing performed by : [address] [address] ALT 13 7 - 45 Units/L UMESH Comment:Testing performed by : [address] [address] AST 23 10 - 45 Units/L UMESH Comment: Hemolyzed; result may be falsely elevated Testing performed by: [address], [place]., [address] Blood 12/31/2024 8:48 AM CLERK GENERAL 12/31/2024 9:45 AM CLERK GENERAL Shiloh FRANK LAB BLOOD ORDERABLES Fin al Result UMESH [address] [facility] Department [place] [address] * DIABETES EYE EXAM (10/27/2024) SCRIBED DIABETIC [...] age 40, based on guidelines of the [employer] [employer] (ACR Practice Parameter for the Performance of Screening and Diagnostic Mammography) and [place] [employer]. 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 [facility] of low bone mineral density may [...] Gary Russo M.D. MF: MARIAN Report ID: [id number] Reading Location: [id number] Leatha FRANK IMG DXA PROCEDURES Final Resul t * Colonoscopy (12/16/2021) Anatomical Region Laterality Modality Other Historical Provider MD ENDOSCOPY PROCEDURES Digna l Result * ThinPrep Pap with HPV (10/28/2021 10:19 AM CLERK GENERAL) Pap test 10/28/2021 10:1 9 AM CLERK GENERAL 10/29/2021 10:19 AM CLERK GENERAL Narrative 10/31/2021 11:55 AM CLERK GENERAL [facility] Department of Pathology [address] [place] [address], [place] [address] Final Report with Addendum Note to [...] the details. Patient Name: SHANTE BROWNLEE Address: [address] [place] [address] Gender: F : 1960 (Age: 61) Service: Laboratory Location: [facility] #: [id number] Patient Type: E SPECIMEN Taken: 10/28/2021 Received: 10/29/2021 Accessioned:: 10/30/2021 Reported: 10/31/2021 Physician(s): Joanie Sevilla M.D. [facility] Diagnosis: Source of Specimen: Imaged Thinprep Pap Test plus HPV - Police Detective Cytologic Material Specimen Adequacy: - Satisfactory for evaluation; endocervical/transformation zone component present General Category: - Negative for intraepithelial lesion or malignancy TACOS Reich(ASCP) Report Electronically Reviewed and Signed Out By TACOS Reich(ASCP) 10/31/2021 11:55:34 Addenda: HPV Test Interpretation NEGATIVE for types 16, 18, 31, 33, 35, 39, 45, 51, 52, 56, 58, 59, 66 and 68. Test performed utilizing Gen-Probe Aptima assay. TACOS Franco(ASCP) Report Electronically Reviewed and Signed Out By TACOS Franco(ASC) 10/30/2021 14:00:42 Specimen(s) Received: A: Imaged Thinprep Pap Test plus HPV - Police Detective Cytologic Material Clinical History: Menstrual History: Post-menopausal [...] by the Surgical Pathology Department at [facility] as part of an ongoing quality assurance lead program and in compliance with federally mandated [...] characteristics determined by the Surgical Pathology Department [facility]. It has not been cleared or approved by the [place]. Food and Drug Administration. Joanie Sevilla MD LAB CYTOLOGY ORDERABLES Final Result * Hepatitis C antibody (09/09/2017 4:15 PM CLERK GENERAL) Hep C Ab NONREACT NONREACTIVE 09/09/2017 6:52 PM CLERK GENERAL [facility] HISTORICAL RESULTS Comment: [employer] using CRISTI (chemiluminescent immunoassay) technology. NONREACTIVE: Antibodies [...] to Hepatitis C detected. 09/09/2017 4:15 PM CLERK GENERAL 09/09/2017 4:26 PM CLERK GENERAL Leatha FRANK LAB MICROBIOLOGY - GENERAL ORD ERABLES Final Result [facility] HISTORICAL RESULTS from Last 3 Months or Most Recently Relevant to Health Maintenance Insurance MEDICARE FOR LIFE Care Teams Residential Support Worker Relationship Specialty Start Date End Date Laetha Ansari PA [address] [place] [address] PCP - General Family Medicine 03/16/20 Beto Potts MD [address] [place] [address] Consulting Physician Family Medicine 01/11/20 Beto Potts MD [address] [place] [address] Consulting Physician Family Medicine 02/15/20 Beto Potts MD [address] [place] [address] Consulting Physician Family Medicine 03/16/20 Samir Garcia PA [address] [place] [address] [address] RIOS [address] [place] [id number] Physician Underwater Welder Orthopedic Surgery 03/22/21
== END 2025-01-12 14:42 | disposition home or self-care (01) ==
PROVIDERS: Emergency Provider Nurse Practitioner Family; PCP Physician Assistant
DX: B02.9 Zoster without complications (principal); E11.9 Type 2 diabetes mellitus without complications; Z79.84 Long term (current) use of oral hypoglycemic drugs; I10 Essential (primary) hypertension; Z96.651 Presence of right artificial knee joint
CPT/HCPCS: 99213; G0463